=== PATIENT | male | born 1970 | race Caucasian/White ===

== ENCOUNTER 2020-07-26 19:03 | Inpatient (IN) | payer SELFPAY ==
[2020-07-26 19:10] VITALS: BP 139/86; PULSE 86; RESP 18; TEMP 36.9; O2SAT 100; BMI 25.1
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
--- NOTE | 2020-07-26 21:04 | ECG_ITS ---
[facility] Test Date: 2020-07-26 Pat Name: Augustus Smith Department: Room: 270 Gender: Male Certified Hand Therapist: : 1970 Requested By: Tunde Rogel Order Number: [id number] Reading MD: EVAN BALDWIN Measurements Intervals [place] Rate: 78 P: 73 CO: 163 QRS: 69 QRSD: 140 T: 210 QT: 425 QTc: 487 Interpretive Statements SINUS RHYTHM POSSIBLE LEFT ATRIAL ENLARGEMENT [-0.1mV P WAVE IN V1/V2] LEFT BUNDLE BRANCH BLOCK [120+ ms QRS DURATION, 80+ ms Q/S IN V1/V2, 85+ ms R IN I/aVL/V5/V6] No previous ECG available for comparison Electronically Signed On 07-28-2020 20:22:58 CDT by EVAN BALDWIN [id number]
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
[2020-07-26 21:17] VITALS: BP 159/100; PULSE 75; RESP 18; TEMP 36.6
[2020-07-26] MEDS: HYDROmorphone 1 mg/mL INJ 1 mL IVP (21:27)
[2020-07-26] MEDS: ondansetron 2 mg/ML SDV 2 mL 4 MG IVP (21:27)
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
[2020-07-26 22:23] VITALS: RESP 18; O2SAT 98
[2020-07-26] MEDS: morphine 4 mg/mL SDV 1 mL IVP (22:23)
[2020-07-26] MEDS: LORazepam 2 mg/mL INJ 1 mL IVP (22:23)
[2020-07-26 22:30] LABS: Basophils # 0.1 10^3/uL (0.0-0.1); Basophils % 0.9 %; Eosinophils # 0.2 10^3/uL (0.0-0.8); Eosinophils % 2.2 %; Hematocrit 40.1 % (42.0-52.0); Hemoglobin 13.7 g/dL (11.7-16.6); Lymphocytes # 1.4 10^3/uL (0.8-4.8); Mean Corpuscular HGB Conc 34.2 g/dL (30.0-36.0); Mean Corpuscular Hemoglobin 31.9 pg (28.0-34.0); Mean Corpuscular Volume 93.3 fL (80-94); Mean Platelet Volume 11.8 fL (7.4-10.4); Monocytes # 0.8 10^3/uL (0.2-0.9); Monocytes % 7.5 %; Neutrophils # 8.33 10^3/uL (1.8-7.7); Neutrophils % 76.1 %; Nucleated Red Blood Cells % 0 %; Platelet Count 197 10^3/cmm (130-400); Red Cell Distribution Width 13.4 % (12.1-15.1); White Blood Count 10.9 10^3/uL (4.0-10.0)
[2020-07-26 22:36] LABS: Alanine Aminotransferase 205 U/L (0-41); Albumin Level 4.2 g/dL (3.5-5.2); Alkaline Phosphatase 77 IU/L (40-130); Anion Gap 13.8 (5-19); Aspartate Amino Transferase 105 U/L (0-40); Blood Urea Nitrogen 12 mg/dL (6-20); Calcium 8.5 mg/dL (8.5-10.5); Carbon Dioxide 25 mmol/L (22-29); Chloride 102 mmol/L (98-107); Glomerular Filtration Rate 143.8 mL/min (90-130); Glucose 117 mg/dL (65-115); Osmolality Calculated 285 mOsm/kg (285-295); Potassium 3.8 mmol/L (3.5-5.1); Sodium 137 mmol/L (136-145); Total Bilirubin 0.7 mg/dL (0.15-1.2); Total Protein 8.2 g/dL (6.6-8.7)
[2020-07-26 22:37] LABS: Creatinine Clr Calc Pharmacy 165.7678
[2020-07-26 23:55] LABS: Hepatitis A Antibody IgM Non-Reactive (Nonreactive); Hepatitis B Core IgM Non-Reactive (Nonreactive); Hepatitis B Surface Antigen Non-Reactive (Nonreactive); Hepatitis C Virus Antibody Reactive (Nonreactive); INR 1.04 (0.8-1.2)
[2020-07-27] VITALS (26 sets, daily range): BP systolic 133–168; BP diastolic 73–105; PULSE 74–100; RESP 12–22; TEMP 36–37.1; O2SAT 91–100
--- NOTE | 2020-07-27 | SCC_ITS ---
Procedure Done: Ex-Fix left tibial plateau fracture 19.4 seconds of fluoroscopic guidance, for a cumulative dose of 0.89 mGy, was provided to Dr. Knutson by the radiology department. C-arm images of the LEFT knee were saved for the patient's permanent record. [facility]
--- NOTE | 2020-07-27 | XR_ITS ---
WS: [id number] Left knee, C-arm fluoroscopy, 07/27/2020 Clinical Data: OR PICS Comparison: Left leg, 07/26/2020 Findings: There is visualization of the proximal tibial and fibular fractures of the left leg. XR/XR knee LT 1-2V 78163 Impression: Fractures of the proximal left tibia and fibula. Kellgren-Cesar Classification: NA
[2020-07-27] MEDS: LORazepam 2 mg/mL INJ 1 mL 1 MG IVP (00:13)
[2020-07-27] MEDS: morphine 4 mg/mL SDV 1 mL IVP (00:14)
[2020-07-27] MEDS: dextrose 5%-sod chloride 0.45% 1,000 ML 30 ML IV (02:06)
--- NOTE | 2020-07-27 03:18 | PC.NURSE ---
Before arriving to floor, patient received 1mg of Ativan and 4mg of morphine, due to this this RN is unable to complete admission assessment due to patient being sedated
[2020-07-27 04:06] LABS: Alcohol Level < 10 mg/dL (0-10)
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
[2020-07-27] MEDS: sennosides-docusate Tablet 1 TAB PO (10:49)
[2020-07-27] MEDS: sodium chloride 0.9% 1,000 ML 30 ML IV (13:30)
[2020-07-27 13:33] LABS: Amphetamines Screen Urine Positive (Negative); Barbiturates Screen Urine Negative (Negative); Benzodiazepines Screen Urine Positive (Negative); Cocaine Screen Urine Negative (Negative); Opiate Screen Urine Positive (Negative); PCP Screen Urine Negative (Negative); THC Screen Urine Positive (Negative)
--- NOTE | 2020-07-27 13:34 | ANES.PREANE2 ---
Pre-Anesthetic Assessment Pre-Anesthetic Assessment: Height/Weight: Height 1.8 m Weight 81.647 kg Temp Pulse Resp BP Pulse Ox 97.3 F L 80 18 144/98 97 07/27/20 12:57 07/27/20 12:57 07/27/20 12:57 07/27/20 12:57 07/27/20 12:57 Proposed Procedure: Operation Date: 07/27/20 15:00 Proposed Procedures p left leg external fixation, tibial plateau fracture(Left) - Brandon Knutson, DO Was Beta Flavio taken within 24 hours: N/A Was Clonidine taken within 24 hours: N/A Social: Social History: Tobacco and No alcohol Exam: Pre-Anes Outpt Exam: alert, oriented x 3 and regular rate & rhythm Airway: Submandibular: WNL Cervical ROM: WNL MP: 2 Dentition: Chipped Additional comments: poor dentition , missing several Pulmonary: Pulmonary: COPD Neuropsych: Comments: drug abuse Anesthetic Plan: ASA status: 3 Anesthesia: General Risk of > 500 ml blood loss (7ml/kg in children): No Meds/Allergies Current Medications: Current Medications Generic Name Dose Route Start Last Admin Trade Name Freq PRN Reason Stop Dose Admin Dextrose/Sodium Ch loride 1,000 mls @ 30 ml s/hr 07/27/20 00:15 07/27/20 02:06 Dextrose 5%-Sod Chloride 0.45% IV 30 mls/hr .Q24H ANKIT Administration Sodium Chloride 1,000 mls @ 30 ml s/hr 07/27/20 13:00 07/27/20 13:30 Sodium Chloride 0.9% IV 07/28/20 12:59 30 mls/hr .Q24H ANKIT Administration Senna/Docusate Sod ium 1 tab 07/27/20 09:00 07/27/20 10:49 Sennosides-Docus ate Tablet PO 1 tab DAILY ANKIT Administration PFSH Anesthesia PFSH: Medical History (Updated 07/26/20 @ 23:02 by Good Roman MD) No pertinent past medical history Surgical History (Updated 07/26/20 @ 23:02 by Good Roman MD) History of ankle surgery Family History (Updated 07/26/20 @ 23:02 by Good Roman MD) Other No pertinent family history Social History (Updated 07/26/20 @ 23:03 by Good Roman MD) Smoking and tobacco status: current every day smoker cigarettes Alcohol intake: never Substance/Drug Use: current Substance/Drug use type: Methamphetamine Data Anesthesia CBC & Chem 7: 07/26/20 22:15 07/26/20 22:15 Other Labs: Laboratory Results - last 48 hr 07/26/20 07/26/20 07/26/20 03:35 22:15 22:15 WBC 10.9 H RBC 4.30 Hgb 13.7 Hct 40.1 L MCV 93.3 MCH 31.9 MCHC 34.2 RDW 13.4 Plt Count 197 MPV 11.8 H Neut % (Auto) 76.1 Lymph % (Auto) 13.0 [place] % (Auto) 7.5 Eos % (Auto) 2.2 Baso % (Auto) 0.9 Neut # (Auto) 8.33 H Lymph # (Auto) 1.4 [place] # (Auto) 0.8 Eos # (Auto) 0.2 Baso # (Auto) 0.1 Nucleated RBC % (auto) 0 Nucleated RBCs # 0.0 PT 14.00 INR 1.04 Sodium Potassium Chloride Carbon Dioxide Anion Gap BUN Creatinine GFR Calculation Glucose Calculated Osmolality Calcium Total Bilirubin AST ALT Alkaline Phosphatase Total Protein Albumin Globulin Urine Opiates Screen Ur Barbiturates Screen Ur Phencyclidine Scrn Ur Amphetamines Screen U Benzodiazepines Scrn Urine Cocaine Screen U Marijuana (THC) Screen Ethyl Alcohol < 10 Hepatitis A IgM Ab Hep Bs Antigen Hep B Core IgM Ab Hepatitis C Antibody 07/26/20 07/26/20 07/27/20 22:15 22:15 12:40 WBC RBC Hgb Hct MCV MCH MCHC RDW Plt Count MPV Neut % (Auto) Lymph % (Auto) [place] % (Auto) Eos % (Auto) Baso % (Auto) Neut # (Auto) Lymph # (Auto) [place] # (Auto) Eos # (Auto) Baso # (Auto) Nucleated RBC % (auto) Nucleated RBCs # PT INR Sodium 137 Potassium 3.8 Chloride 102 Carbon Dioxide 25 Anion Gap 13.8 BUN 12 Creatinine 0.6 L GFR Calculation 143.8 H Glucose 117 H Calculated Osmolality 285 Calcium 8.5 Total Bilirubin 0.7 AST 105 H ALT 205 H Alkaline Phosphatase 77 Total Protein 8.2 Albumin 4.2 Globulin 4.0 Urine Opiates Screen Positive H Ur Barbiturates Screen Negative Ur Phencyclidine Scrn Negative Ur Amphetamines Screen Positive H U Benzodiazepines Scrn Positive H Urine Cocaine Screen Negative U Marijuana (THC) Screen Positive H Ethyl Alcohol Hepatitis A IgM Ab Non-reactive Hep Bs Antigen Non-reactive Hep B Core IgM Ab Non-reactive Hepatitis C Antibody Reactive H Cardiac Studies: No Data to Display
--- NOTE | 2020-07-27 14:21 | W.PM.OPSUD ---
Surgery/Procedure H&P Update DATE OF PROCEDURE: July 27, 2020 DATE H&P PERFORMED: 07/27/20 PLANNED PROCEDURE: Operation Date: 07/27/20 15:00 Proposed Procedures p left leg external fixation, tibial plateau fracture(Left) - Brandon Knutson DO
--- NOTE | 2020-07-27 15:06 | ECG_ITS ---
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: : 1970 Requested By: Kosta Venegas Order Number: [id number] Macario MD: EVAN BALDWIN Measurements Intervals [place] Rate: 89 P: 75 LA: 174 QRS: 61 QRSD: 149 T: -38 QT: 438 QTc: 533 Interpretive Statements SINUS RHYTHM POSSIBLE LEFT ATRIAL ENLARGEMENT [-0.1mV P WAVE IN V1/V2] LEFT BUNDLE BRANCH BLOCK [120+ ms QRS DURATION, 80+ ms Q/S IN V1/V2, 85+ ms R IN I/aVL/V5/V6] Compared to ECG 07/26/2020 21:55:41 No significant changes Electronically Signed On 07-28-2020 20:21:35 CDT by EVAN BALDWIN [email or web address] Kenney [email or web address]/store/OM/[id number]
--- NOTE | 2020-07-27 15:11 | PM.OP ---
Operative Report Date of procedure: July 27, 2020 Pre-op Diagnosis: left tibial plateau fracture Post-op diagnosis: same Procedure Done: Ex-Fix left tibial plateau fracture Surgeon: Brandon Knutson Anesthesia: General Estimated blood loss (mL): 5 Condition: stable Disposition: PACU Procedure: ex fix left tibial platea fracture Patient was brought to the operative suite placed in the supine position after undergoing anesthesia. Patient was prepped and draped normal sterile fashion. 2 stab incisions were made in the tibia to 7 screws were made in the femur. And Schanz pins were placed in the tibia and femur to were placed in the tibia anterior placed in the femur and this was done under C-arm guidance. Part of bars clamps were attached and the rods were attached to the Schanz pins traction was applied and the bar to bar clamps were locked into position. Once this was completed AP lateral fluoroscopy ensured the fracture and the exfix were in prepositions. Sterile dressings were applied patient was transferred to the PACU in stable condition.
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
[2020-07-27] MEDS: HYDROmorphone 1 mg/mL INJ 1 mL 0.5 MG IVP ×2 (15:32→22:59)
--- NOTE | 2020-07-27 15:39 | SUR.PHASEI ---
1507- DR MCKENZIE ORDERS 12 LEAD LOUISA STAT 1510- LOUISA AT THE BEDSIDE, DR MCKENZIE NOTIFIED 1513- DR MCKENZIE AT THE BEDSIDE, NO NEW ORDERS AT THIS TIME
--- NOTE | 2020-07-27 15:55 | PM.PN ---
Subjective Subjective: Interval history: Patient was incoherent has bad fracture blisters and swelling of his leg need to stabilize the soft tissues in the fracture in order to prevent compartment syndrome and dysvascular leg. Took the patient emergently to the OR. 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
--- NOTE | 2020-07-27 16:23 | ANE.PACU2 ---
Inpatient post-anesthesia follow up: Airway intact: Yes Vital signs: Temperature 97.7 F Pulse Rate [Monito r] 86 Pulse Rate 89 Respiratory Rate 19 Blood Pressure [Ri ght Arm] 139/86 Blood Pressure 154/97 Pulse Oximetry 100 Oxygen Delivery Me thod Room Air Oxygen Flow Rate 6 Fraction of Inspir ed Oxygen Hydration adequate: Yes Nausea and vomiting: No Pain level: 2 Mental status: Baseline Additional Comments: Intraop patient had very specific EKG changes with dips in blood pressure, postop EKG no change from preop, discussed with Dr. Stark.
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
[2020-07-27 18:46] LABS: Glucose Point of Care 105 mg/dL (70-110)
--- NOTE | 2020-07-27 19:08 | P.PN_ITS ---
Subjective Subjective: Interval history: overnight labs and H&P reviewed. s/p placeent of extrenal fixator today afternoon. Seen post operatively. Intraop noted to have variable changes on EKG with fluctuating BP, overnight EKD with LBBB and T wave inverson of unclear duration. EKG and troponin series currently ordered Vitals/I&O/Wt Last Vital Signs Temp 97.6 F 07/27/20 18:10 Pulse 76 07/27/20 18:10 Resp 17 07/27/20 18:10 BP 158/96 07/27/20 18:10 Pulse Ox 99 07/27/20 18:10 07/27/20 07/27/20 07/27/20 06:59 14:59 22:59 Intake Total 0 / 0 50 / 50 0 / 50 Output Total 5 / 5 Balance 0 / 0 50 / 50 -5 / 45 Weight last 48 hrs Weight 81.647 kg Physical Exam Narrative: EXAM NARRATIVE: young male laying supine in his bed Multiple skin tattoos EOMI, PERRLA, bilateral conjunctival hyperemia Soft abdomen nontender LLE in external fixator No acute respiratory distress no audible stridor or wheezing Data : 07/27/20 23:27 07/26/20 22:15 A&P Assessment and plan (1) Fracture tibia/fibula: Status: Acute Additional A&P Information Acute left proximal tibia and fibula fracture s/p placement of extrenal fixator Intraop events as noted above EKG and troponin series pain currently controlled Urine drug screen + for opiates, amphetamines , benzos, monitor for signs of withdrawal Attestations Medical Necessity Statement*: POD 0, tehrapy assessments montior for withdrawal, EKG Coding Level of Care 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
[2020-07-27 20:04] LABS: Troponin(5th) Baseline 9 ng/L (0-15)
--- NOTE | 2020-07-27 21:03 | PC.NURSE ---
Addendum entered by Oralia Ruiz LPN 07/27/20 21:09: this nurse had noticed that pt urinated in his drinking glass on his bedside table Original Note: upon entering the room, pt was yelling, nurse stating he was in pain. upon doing my assessment, pt was falling alseep in the middle of answering questions. pt did not finish answering all assessment questions before falling asleep. pt resting with eyes closed and normal respirations.
[2020-07-27 22:17] LABS: Troponin 5 2HR 11.16 ng/L (0-15); Troponin 5 2HR Delta 2.16 ABS# (0-10)
[2020-07-27 23:51] LABS: Hematocrit 35.9 % (42.0-52.0); Hemoglobin 12.2 g/dL (11.7-16.6)
[2020-07-28] VITALS (11 sets, daily range): BP systolic 124–159; BP diastolic 76–88; PULSE 71–93; RESP 14–18; TEMP 36.6–37.1; O2SAT 98–100
[2020-07-28] MEDS: dextrose 5%-sod chloride 0.45% 1,000 ML 30 ML IV (02:04)
[2020-07-28 03:01] LABS: Troponin 5 6HR 10.99 ng/L (0-15); Troponin 5 6HR Delta 1.99 ng/L (0-12)
[2020-07-28 03:03] LABS: Alanine Aminotransferase 175 U/L (0-41); Albumin Level 3.6 g/dL (3.5-5.2); Alkaline Phosphatase 71 IU/L (40-130); Anion Gap 13.8 (5-19); Aspartate Amino Transferase 97 U/L (0-40); Blood Urea Nitrogen 10 mg/dL (6-20); Carbon Dioxide 25 mmol/L (22-29); Chloride 97 mmol/L (98-107); Globulin 3.5 g/dL (1.3-4.6); Glomerular Filtration Rate 120.4 mL/min (90-130); Glucose 109 mg/dL (65-115); Osmolality Calculated 274 mOsm/kg (285-295); Potassium 3.8 mmol/L (3.5-5.1); Sodium 132 mmol/L (136-145); Total Bilirubin 0.7 mg/dL (0.15-1.2); Total Protein 7.1 g/dL (6.6-8.7)
[2020-07-28] MEDS: HYDROmorphone 1 mg/mL INJ 1 mL 0.5 MG IVP ×4 (03:22→20:45)
--- NOTE | 2020-07-28 08:13 | PM.PN ---
Subjective Subjective: Interval history: Patient pain controlled this morning. That has been stabilized with exfix. Vitals/I&O/Wt Last Vital Signs Temp 98.2 F 07/28/20 07:56 Pulse 76 07/28/20 07:56 Resp 18 07/28/20 07:56 BP 152/88 07/28/20 07:56 Pulse Ox 99 07/28/20 07:56 07/27/20 07/28/20 07/28/20 22:59 06:59 14:59 Intake Total 800 / 850 1309.5 / 2159.5 Output Total 245 / 245 600 / 845 500 / 500 Balance 555 / 605 709.5 / 1314.5 -500 / -500 Weight last 48 hrs Weight 180 lb Physical Exam Narrative: EXAM NARRATIVE: Moving toes complaining of some numbness in his toes. Leg swollen but calf feels relatively soft compared to yesterday. Data : 07/27/20 23:27 07/28/20 02:24 A&P Assessment and plan (1) Fracture tibia/fibula: Patient has comminuted tibial plateau fracture. Patient will likely be in the exfix for at least 2 weeks allow for swelling to go down and then will have definitive treatment with open reduction internal fixation after this. 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
[2020-07-28] MEDS: sennosides-docusate Tablet 1 TAB PO (09:12)
[2020-07-29] VITALS (15 sets, daily range): BP systolic 135–165; BP diastolic 79–93; PULSE 73–95; RESP 14–22; TEMP 36.5–37.1; O2SAT 92–100
[2020-07-29] MEDS: HYDROmorphone 1 mg/mL INJ 1 mL 0.5 MG IVP ×5 (00:55→23:42)
[2020-07-29 05:29] LABS: Basophils # 0.1 10^3/uL (0.0-0.1); Basophils % 1.3 %; Eosinophils # 0.5 10^3/uL (0.0-0.8); Eosinophils % 5.9 %; Hematocrit 40.9 % (42.0-52.0); Hemoglobin 13.6 g/dL (11.7-16.6); Lymphocytes # 2.3 10^3/uL (0.8-4.8); Lymphocytes % 25.3 %; Mean Corpuscular HGB Conc 33.3 g/dL (30.0-36.0); Mean Corpuscular Hemoglobin 31.6 pg (28.0-34.0); Mean Corpuscular Volume 95.1 fL (80-94); Mean Platelet Volume 11.9 fL (7.4-10.4); Monocytes # 1.4 10^3/uL (0.2-0.9); Monocytes % 15.5 %; Neutrophils % 51.7 %; Nucleated Red Blood Cells % 0 %; Platelet Count 197 10^3/cmm (130-400); Red Cell Distribution Width 13.3 % (12.1-15.1); White Blood Count 9.1 10^3/uL (4.0-10.0)
[2020-07-29] MEDS: sennosides-docusate Tablet 1 TAB PO (08:54)
[2020-07-29] MEDS: dextrose 5%-sod chloride 0.45% 1,000 ML 30 ML IV (10:51)
[2020-07-29 11:37] LABS: Magnesium 1.8 mg/dL (1.7-2.3); Phosphorus 3.7 mg/dL (2.5-4.5)
--- NOTE | 2020-07-29 11:54 | PM.PN ---
Subjective Subjective: Interval history: pain improved numbness in toes improved Vitals/I&O/Wt Last Vital Signs Temp 98.1 F 07/29/20 11:19 Pulse 84 07/29/20 11:19 Resp 18 07/29/20 11:19 BP 135/85 07/29/20 11:19 Pulse Ox 100 07/29/20 11:19 07/28/20 07/29/20 07/29/20 22:59 06:59 14:59 Intake Total 290 / 1060 1000 / 2060 983.5 / 983.5 Output Total 1550 / 2600 400 / 3000 400 / 400 Balance -1260 / -1540 600 / -940 583.5 / 583.5 Physical Exam Narrative: EXAM NARRATIVE: sensation intact leg being iced Data : 07/29/20 04:58 07/28/20 02:24 A&P Assessment and plan (1) Fracture tibia/fibula: await swelling to decreses likely 2 weeks. 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
[2020-07-29] MEDS: enoxaparin 40 mg/0.4 mL Syringe SUBCUT (13:04)
--- NOTE | 2020-07-29 14:01 | PC.NURSE ---
PT HAS DONE WELL FOR ME TODAY. PT HAS BEEN UP TO THE BEDSIDE COMMODE WITH ONE ASSIST. PT HAS ALSO BEEN UP TO THE CHAIR FOR A LONG PERIOD OF TIME TODAY. DOCTOR СВЕТЛАНА ROUNDED WITH PT AND ORDERED TO REMOVE DRESSING AND CLEAN SITES WHERE PINS ARE. DRESSING WAS REMOVED. PT TOLERATED THIS WELL. THERE ARE SEVERAL SMALL BLISTERS TO PTS LEFT LEG WERE SURGERY WAS PERFORMED. DOCTOR IS AWARE AND OK WITH THESE FINDINGS. SOME BLISTERS HAVE POPPED. THERE IS ONE LARGE ONE JUST INSIDE AND BELOW PTS LEFT KNEE THAT IS ABOUT THE SIZE OF A HALF DOLLAR, IT IS FULL. PT DOS NOT HAVE ANY COMPLAINTS OF PAIN. PT IS ABLE TO WIGGLE TOES. PULSES ARE EASILY PALPATED. TOES ARE COOL TO TOUCH BUT PT SAY THAT IS HIS NORMAL, HE HAS ALWAYS HAD COLD TOES DUE TO THEM BEING FROSTBIT. WILL CONTINUE TO MONITOR PT THROUGHOUT SHIFT.
--- NOTE | 2020-07-29 18:06 | P.PN_ITS ---
Subjective Subjective: Interval history: no new complaints, some pain at surgical site. Overnight patient had run of 45 beats of V tach which was asymptomatic. Denied any chest pain, dyspnea or palpitations. Medications: Reviewed: Yes Vitals/I&O/Wt Last Vital Signs Temp 98.0 F 07/29/20 15:19 Pulse 58 L 07/29/20 15:19 Resp 18 07/29/20 15:19 BP 138/87 07/29/20 15:19 Pulse Ox 92 07/29/20 15:19 07/29/20 07/29/20 07/29/20 06:59 14:59 22:59 Intake Total 1000 / 2060 1393.5 / 1393.5 Output Total 400 / 3000 800 / 800 Balance 600 / -940 593.5 / 593.5 Physical Exam Narrative: EXAM NARRATIVE: GEN: Awake, alert and oriented, no acute distress CVS: S1S2 N RS: CTA B/L Abd: Soft, nt/nd , bs+ MONITOR AND STORAGE BIN TENDER: no focal neuro deficits Data : 07/29/20 04:58 07/28/20 02:24 A&P Assessment and plan (1) Fracture tibia/fibula: Acute left proximal tibia and fibula fracture s/p placement of extrenal fixator pain currently controlled Urine drug screen + for opiates, amphetamines , benzos, monitor for signs of withdrawal Status: Acute (2) Ventricular tachycardia (paroxysmal): Intraop noted to have dynamic EKG changes, 12 lead post procedure was unchanged. Troponin series was negative. Patient denied any chest pain. Overnight noted to have asymptomatic run of v tach - 45 beats Currently in sinus rhythm Start metoprolol 12.5mg po daily Lexiscan stress test in am Echocardiogram Add on troponins to am labs K and mag within range May be related to polysubstance abuse Hba1c, lipid panel for risk startification start ASA 81mg daily Status: Acute (3) Polysubstance abuse: monitor for signs of withdrawal Status: Acute Additional A&P Information Transfer to CSU for cardiac monitoring given overnight run of V tach Attestations Medical Necessity Statement*: extrenal fixator in place. 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
[2020-07-29 19:48] LABS: Troponin T (5th) Once 10 ng/L (0-15)
[2020-07-29] MEDS: metoprolol succinate ER (24 HR) 25 mg Tablet 12.5 MG PO (19:55)
[2020-07-30] VITALS (13 sets, daily range): BP systolic 136–155; BP diastolic 60–94; PULSE 74–99; RESP 5–20; TEMP 36.5–36.9; O2SAT 98–100
[2020-07-30] MEDS: HYDROmorphone 1 mg/mL INJ 1 mL 0.5 MG IVP ×5 (04:23→22:18)
[2020-07-30 05:04] LABS: Basophils # 0.2 10^3/uL (0.0-0.1); Basophils % 1.7 %; Eosinophils # 0.6 10^3/uL (0.0-0.8); Eosinophils % 7.2 %; Hemoglobin 14.6 g/dL (11.7-16.6); Lymphocytes # 2.1 10^3/uL (0.8-4.8); Lymphocytes % 24.2 %; Mean Corpuscular HGB Conc 33.2 g/dL (30.0-36.0); Mean Corpuscular Hemoglobin 31.6 pg (28.0-34.0); Mean Corpuscular Volume 95.2 fL (80-94); Mean Platelet Volume 11.7 fL (7.4-10.4); Monocytes # 1.2 10^3/uL (0.2-0.9); Monocytes % 13.7 %; Neutrophils % 52.9 %; Nucleated Red Blood Cells % 0 %; Platelet Count 240 10^3/cmm (130-400); Red Blood Count 4.62 10^6/uL (4.1-5.3); Red Cell Distribution Width 13.2 % (12.1-15.1); White Blood Count 8.7 10^3/uL (4.0-10.0)
[2020-07-30 05:22] LABS: Estmated Average Glucose 103; Hemoglobin A1C 5.2 % (4.0-6.0)
[2020-07-30 05:35] LABS: HIV 1 & 2 Antibody Non-Reactive (Non-Reactiv); HIV 1 & 2 Antigen Non-Reactive (Non-Reactiv)
[2020-07-30 05:38] LABS: Alanine Aminotransferase 177 U/L (0-41); Albumin Level 3.8 g/dL (3.5-5.2); Alkaline Phosphatase 75 IU/L (40-130); Anion Gap 12.7 (5-19); Aspartate Amino Transferase 125 U/L (0-40); Blood Urea Nitrogen 15 mg/dL (6-20); Calcium 8.5 mg/dL (8.5-10.5); Carbon Dioxide 31 mmol/L (22-29); Chloride 95 mmol/L (98-107); Chol HDL Ratio 3.02 mg/dL (1.0-5.00); Cholesterol 124 mg/dL (0-200); Globulin 4.7 g/dL (1.3-4.6); Glomerular Filtration Rate 120.4 mL/min (90-130); Glucose 113 mg/dL (65-115); HDL Cholesterol 41 mg/dL (60-100); LDL Cholesterol Calculated 73 mg/dL (50-129); LDL HDL Ratio 1.78 RATIO (0.00-3.22); Osmolality Calculated 280 mOsm/kg (285-295); Potassium 4.7 mmol/L (3.5-5.1); Sodium 134 mmol/L (136-145); Total Bilirubin 0.4 mg/dL (0.15-1.2); Total Protein 8.5 g/dL (6.6-8.7); Triglycerides 49 mg/dL (0-150)
--- NOTE | 2020-07-30 08:05 | PC.NURSE ---
to nuc stress test via bed
[2020-07-30] MEDS: regadenoson 0.4 Mg/5 ml Syringe IVP (08:07)
--- NOTE | 2020-07-30 08:18 | PC.NURSE ---
complains of pain when awake but will fall asleep. called guicho for pain meds prior to second picture due to being moved from bed to table for picture. states she will try to get down here soon for dose of meds.
--- NOTE | 2020-07-30 08:22 | ECG_ITS ---
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 Interpretive Statements NAME OF STUDY: LEXISCAN SESTAMIBI STRESS TEST INDICATION: [Chest Pain, ] Procedure: At the baseline, the blood pressure was 145/83 mmHg with a heart rate of 70 bpm. The electrocardiogram showed normal sinus rhythm, left bundle branch block. The Lexiscan was infused over a period of 20 seconds. A total of 0.4 mg of Lexiscan was infused. The stress phase was continued for a total of 5 minutes. Heart rate was at the end of stress phase was 93 bpm and a blood pressure of 100/65 mmHg. The EKG at the peak infusion revealed since normal sinus rhythm with no significant ST-T wave changes. Sestamibi was injected 20 seconds after the Lexiscan infusion. Blood pressure at the end of recovery phase was 136/77 mmHg with a heart rate of 104 bpm. Conclusion: 1. Normal EKG response to Lexiscan infusion 2. No Lexiscan induced chest pain or cardiac arrhythmia. 3. Normal blood pressure and heart rate response. 4. Sestamibi/sestamibi perfusion scan pending; see separate report. Electronically Signed On 09-16-2020 17:56:42 CDT by Iam Guevara M.D. [id number]
--- NOTE | 2020-07-30 08:55 | PM.PN ---
Subjective Subjective: Interval history: resting in bed Vitals/I&O/Wt Last Vital Signs Temp 97.7 F 07/30/20 04:00 Pulse 99 07/30/20 08:17 Resp 14 07/30/20 08:43 BP 136/77 07/30/20 08:17 Pulse Ox 98 07/30/20 04:23 07/29/20 07/30/20 07/30/20 22:59 06:59 14:59 Intake Total 1120 / 2513.5 400 / 2913.5 Output Total 1350 / 2150 1250 / 3400 325 / 325 Balance -230 / 363.5 -850 / -486.5 -325 / -325 Physical Exam Narrative: EXAM NARRATIVE: fracture blisters present Data : 07/30/20 04:41 07/30/20 04:41 A&P Assessment and plan (1) Fracture tibia/fibula: Status: Acute Additional A&P Information await swelling to go down for definitive tx likely 2 weeks Ice and elevate extremity pin care daily Attestations Medical Necessity Statement*: homeless Coding Level of Care Code 

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
[2020-07-30] MEDS: sennosides-docusate Tablet 1 TAB PO (10:25)
[2020-07-30] MEDS: metoprolol succinate ER (24 HR) 25 mg Tablet 12.5 MG PO (10:26)
[2020-07-30] MEDS: aspirin 81 mg EC Tablet PO (10:26)
[2020-07-30] MEDS: enoxaparin 40 mg/0.4 mL Syringe SUBCUT (13:38)
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
--- NOTE | 2020-07-30 18:08 | USCV_ITS ---
Augustus Smith Age: 50 Gender: M : 1970 Exam Date: 07/30/2020 05:15 Ordering Phys: Vikki Stark MD Technologist: Nallely Oviedo Exam Location: [facility] [place] Indication: VTACH BP: 155 / 90 HR: 71 Rhythm: Sinus Technical Quality: Adequate MEASUREMENTS (Male / Female) Normal Values 2D ECHO LV Diastolic Diameter PLAX 4.0 cm 4.2 - 5.9 / 3.9 - 5.3 cm LV Systolic Diameter PLAX 3.5 cm LV Chamber Size 4.4 cm IVS Diastolic Thickness 1.7 cm 0.6 - 1.0 / 0.6 - 0.9 cm IVS Systolic Thickness 1.4 cm LVPW Diastolic Thickness 1.7 cm 0.6 - 1.0 / 0.6 - 0.9 cm LVPW Systolic Thickness 1.5 cm RV Chamber Size 1.8 cm LVOT Diameter 2.0 cm LV Ejection Fraction 2D Teich 28.7 % LV Ejection Fraction MOD 2C 57.2 % LV Ejection Fraction 2C AL 56.9 % LA Diameter 2.9 cm LA Width 2.8 cm LA Height 4.0 cm RA Width 2.7 cm RA Height 4.2 cm M-MODE LV Diastolic Diameter MM 4.4 cm 4.2 - 5.9 / 3.9 - 5.3 cm LV Systolic Diameter MM 3.0 cm LV Ejection Fraction MM Teich 60.5 % IVS Diastolic Thickness MM 1.2 cm 0.6 - 1.0 / 0.6 - 0.9 cm IVS Systolic Thickness MM 1.7 cm LVPW Diastolic Thickness MM 1.2 cm 0.6 - 1.0 / 0.6 - 0.9 cm LVPW Systolic Thickness MM 2.0 cm Aortic Annulus Diameter 2.0 cm LA Ao Ratio MM 0.7 MV E Point Septal Separation 1.3 cm DOPPLER AV Peak Velocity 141.0 cm/s LVOT Peak Velocity 87.0 cm/s AV Area Cont Eq vti 2.1 cm squared AV Area Cont Eq pk 2.0 cm squared MV Area PHT 3.5 cm squared Mitral E to A Ratio 0.9 MV E' Velocity 33.5 cm/s Mitral E to MV E' Ratio 6.1 Mitral E to LV E' Lateral Ratio 4.2 Mitral E to LV E' Septal Ratio 11.0 TR Peak Velocity 233.9 cm/s TR Peak Gradient 21.9 mmHg TR Mean Velocity 152.4 cm/s TR Mean Gradient 11.0 mmHg TR Velocity Time Integral 48.3 cm TV Peak E Velocity 46.0 cm/s Right Atrial Pressure 3.0 mmHg Pulmonary Artery Systolic Pressu 24.9 mmHg PV Peak Velocity 130.0 cm/s RV Acceleration Time 0.1 s RV Ejection Time 0.3 s RV AcT/ET 0.3 FINDINGS Left Ventricle Normal left ventricular size. LV systolic function is moderately reduced with EF of 35-40%.There is mild hypokinesis of the anterior wall and moderate to severe hypokinesis of the anteroseptal and inferoseptal maya. Grade 1 diatsolic dysfunction Right Ventricle The right ventricle is normal in size and function. Right Atrium The right atrium is normal in size. Left Atrium The left atrium is normal in size. Mitral Valve Structurally normal mitral valve without significant stenosis or prolapse. There is no mitral regurgitation. Aortic Valve Not well visualized. No significant sclerosis or stenosis. There is no aortic regurgitation. Tricuspid Valve Structurally normal tricuspid valve without significant stenosis or regurgitation. Insufficient TR jet to calculate RVSP Pulmonic Valve Not well visualized Pericardium Normal pericardium without effusion. Aorta Normal ascending aorta dimension. CONCLUSIONS LV systolic function is moderately reduced with EF of 35-40% and above mentioned regional wall motion abnormalties Grade 1 diastolic dysfunction No significant valvular heart disease is noted No comparison studies are available Iam Guevara MD (Electronically Signed) Final Date: 30 July 2020 13:05 S
[2020-07-31] VITALS (12 sets, daily range): BP systolic 120–137; BP diastolic 84–93; PULSE 74–103; RESP 9–21; TEMP 36.4–37.2; O2SAT 97–100
[2020-07-31] MEDS: HYDROmorphone 1 mg/mL INJ 1 mL 0.5 MG IVP ×5 (04:00→21:54)
[2020-07-31] MEDS: sennosides-docusate Tablet 1 TAB PO (08:40)
[2020-07-31] MEDS: metoprolol succinate ER (24 HR) 25 mg Tablet 12.5 MG PO (08:40)
[2020-07-31] MEDS: aspirin 81 mg EC Tablet PO (08:40)
--- NOTE | 2020-07-31 10:57 | PM.PN ---
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 EXT: LLE in extrenal fixator extending to thigh, surrounding skin with few blebs Data : 07/30/20 04:41 07/30/20 04:41 A&P Assessment and plan (1) Fracture tibia/fibula: Acute left proximal tibia and fibula fracture s/p placement of external fixator 07/27/20 pain currently controlled planned for second surgery with removal of fixator and internal fixation in ~2 weeks once edema improves Urine drug screen + for opiates, amphetamines , benzos, monitor for signs of withdrawal Status: Acute (2) Ventricular tachycardia (paroxysmal): Intraop on 07/27 noted to have dynamic EKG changes, 12 lead post procedure was unchanged. Troponin series was negative. Overnight on 07/28 noted to have asymptomatic run of v tach - 45 beats Currently in sinus rhythm Started metoprolol 12.5mg po daily Lexiscan stress test with reversible perfusion defects in the LAD territory Echocardiogram with LVEF 35-40%, apical hypokinesia planned for cardiac cath tomorrow started ASA 81mg daily, lipitor 40mg daily A1c not consistent with DM Given high probability of CAD and dynamic changes, there is high risk of cardiac decompensation during surgery, going for cardiac cath prior to planned OR in 2 weeks Discussed with orthopedics-will be okay to proceed with second surgery on ASA+ Plavix if risk of cardiac arrest can be reduced with this intervention. 

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
[2020-07-31] MEDS: enoxaparin 40 mg/0.4 mL Syringe SUBCUT (13:08)
--- NOTE | 2020-07-31 13:44 | PC.NURSE ---
Surgical site care Informed Dr. Knutson regarding pt's more blisters, itching, and serosanginous small to mod amt of drainage to areas of the pins site. is aware of the blisters. Crusted drainage from popped blisters and dried blood around the pins and leg areas are cleansed with saline/sterile water per doctor order on pin care daily. cleansing feels good according to pt. Informed pt that itching is related to the dried crusts from his popped blisters. Pt verbalizes understanding.
[2020-07-31] MEDS: atorvastatin 40 mg Tablet PO (20:21)
[2020-08-01] VITALS (92 sets, daily range): BP systolic 100–157; BP diastolic 69–92; PULSE 66–103; RESP 0–26; TEMP 36.4–37; O2SAT 84–100
[2020-08-01] MEDS: HYDROmorphone 1 mg/mL INJ 1 mL 0.5 MG IVP ×6 (02:27→23:03)
--- NOTE | 2020-08-01 06:45 | PC.NURSE ---
NURSING NOTE: PT PUT ON LIGHT FOR PAIN MEDICATION AND WANTED URINAL EMPTIED. THIS NURSE GOT DILAUDID OUT OF THE PIXIS AND WENT TO PATIENT'S ROOM. UPON ENTERING THE ROOM THE PATIENT STATED, I HAVE TO GO TO THE FUCKING BATHROOM NOW. THIS NURSE POINTED TO HIS URINAL AND SAID THERE IS STILL PLENTY OF ROOM IN THE URINAL TO GO IF YOU NEED TO.(THERE WAS 250CC URINE IN THE URINAL) PT STATED, NO THERE ISN'T, IT NEEDS TO BE FUCKING EMPTIED. THIS NURSE STATED, THE LANGUAGE IS NOT NECESSARY AND I WILL NOT BE TALKED TO THAT WAY. THE PATIENT REPLIED, I WON'T BE TREATED LIKE THIS EITHER, IM A PERSON TOO. THIS NURSE PROCEEDED TO GIVE PATIENT PAIN MEDICATION, EMPTIED URINAL, ASKED PATIENT IF HE NEEDED ANYTHING ELSE. PT STATED, WHO DO I ASK ABOUT TRANSFERRING? THIS NURSE STATED, YOUR DOCTOR. PATIENT TURNED HIS HEAD AWAY AND THIS NURSE LEFT THE ROOM.
--- NOTE | 2020-08-01 07:23 | P.PN_ITS ---
Subjective Subjective: Interval history: resting in bed Vitals/I&O/Wt Last Vital Signs Temp 97.9 F 08/01/20 07:18 Pulse 77 08/01/20 07:18 Resp 10 L 08/01/20 07:18 BP 152/89 08/01/20 07:18 Pulse Ox 98 08/01/20 07:18 07/31/20 08/01/20 08/01/20 22:59 06:59 14:59 Intake Total 840 / 2138 Output Total 1305 / 1755 Balance -465 / 383 Physical Exam Narrative: EXAM NARRATIVE: swelling significantly improving Data : 07/30/20 04:41 07/30/20 04:41 A&P Assessment and plan (1) Fracture tibia/fibula: Plan for surgery 08/10/20 Status: Acute Attestations Medical Necessity Statement*: he homeless Coding Level of Care Code 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
--- NOTE | 2020-08-01 08:15 | XACV_ITS ---
Exam Room: [facility] Ht: 180 cm Wt: 82 kg BSA: 2.03 m2 Gender: Male : 1970 Exam Priority: Routine Procedure(s): Procedure Description: Diagnostic procedure Procedure Description: Left Heart Catheterization Procedure Description: Left ventriculography Diagnostic Cath Status: Elective Diagnostic Findings * Out patient cardiology follow up. * No disease noted in the Left Main, Left Anterior Descending, Right, or Circumflex coronary arteries. * Coronary angiography shows right dominance. Conclusions 1. Non-ischemic cardiomyopathy. 2. No disease noted in the Left Main, Left Anterior Descending, Right, or Circumflex coronary arteries. 3. Mild left ventricular systolic dysfunction. Ejection fraction of 40%. Recommendations * Aggressive risk factor control. * Guideline directed heart failure therapy. * Outpatient cardiology follow up. Diagnostic RX Recommendation: medical therapy and/or counseling Anticoagulation: Heparin Ventriculography Ejection Fraction: 40.0 % Pressures Phase:Rest AO : 156 / 14 ( 54 ) @ 8:17:00 AM LV : 162 / -14 / 10 @ 8:16:00 AM 160 / -14 / 10 @ 8:16:00 AM 313 / 31 / 257 @ 8:17:00 AM 219 / 15 / 115 @ 8:17:00 AM Clinical Evaluation EBL: 5mL-10mL Procedural Details Procedure Consent Obtained. Admit Source: In Patient. Pre-Procedure Time Out. Identified patient by full name and date of as verbalized by the patient/guarantor. Does the consent match the physician's order: Yes. Accurate & Complete Informed Consent: Yes. Inpatient/Outpatient History & Physical on Chart: Yes. If H&P is completed, is and addenduem needed: Yes; If yes, is the addendum complete: N/A. Visualize and Verify Site with Patient/Guarantor: N/A. Relevant Radiology Images available: N/A. Pre-op teaching completed and patient verbalized understanding. The risks, benefits, and alternatives of sedation and/or procedure were discussed by physician. The patient agrees to continue. Procedure started. [facility] Clinical Fraility Score: 2: Well. Radiotelephone Operator Indications: SVT and abnormal stress test. Chest Pain Symptom Assessment: Atypical Angina/chest pain. Cardiovascular Instability: No,. Correct patient, site and procedure confirmed by cath team. PERRLA. Strong, equal hand academic services professional bilaterally. Lungs clear x 5 lobes. IV on left infiltrated upon arrival. A 20 gauge IV was started in the right forearm using aseptic technique. Oxygen started at 2liters/min via nasal canula. bilateral groins was prepped with chloroprep then draped in the usual sterile fashion. Physician notified. Baseline sample Acquired. HR: 76 BPM. Physician arrived. Physician scrubbed in. Immediate Pre-Procedure Time Out. Correct Patient: Yes; Correct Procedure: Yes; Correct Site: Yes; Correct Patient Position: Yes; Correct Supplies: Yes; Dried Flammable Prep: Yes; Blood Products Available: N/A;. bilateral groins was prepped with chloroprep then draped in the usual sterile fashion. right radial was prepped with chloroprep then draped in the usual sterile fashion. Lidocaine 1% infiltrated to the right radial. Arterial access obtained. A 5 austrian TIG catheter in over wire. wire out. Multiple views taken of left coronary artery. Catheter redirected to the RCA. Multiple views taken of right coronary artery. Catheter out. A 5 austrian Angled Pig catheter in over wire. EDP Sample taken: LV 162/-15,10; HR: 88 BPM; SpO2: 100%. LV gram performed in LEONARD @ 10 mL/second for a total of 30 mL. EDP Sample taken: LV 313/31,257; HR: 85 BPM; SpO2: 100%. Pullback taken: LV Off; AO Off; Mean: , Peak to Peak: , SEP: ; HR: 86 BPM; SpO2: 100%. Catheter out. wire out. TR band placed. Hemostasis obtained. Post Procedure: Pulses reassessed and unchanged. PERRLA. Strong, equal hand academic services professional bilaterally. No VTE prophylaxis required. Medication's Wasted: Lidocaine 1% = 16 mL. Medication's Wasted: Nitro = 49.8 mg. Medication's Wasted: Heparin = 3000 units. Medication's Wasted: Other = fentynal 50 mg. Total IV fluids: 50 mL. Contrast type used: Omnipaque 300 mgI/mL, 500 mL bottle. Contrast Material : Omnipaque 93 ml. Post-op diagnosis: non obstructive CAD. Complications: none. Estimated blood loss: 5mL-10mL. A TR Band was successful obtaining hemostatsis at the Right Radial artery insertion site. Procedure completed. Patient transferred by bed to 1st floor. Vital chart was stopped. Access Site Site: Right Radial artery Sheath Size: 6 Fr Hemostasis Method: TR Band Hemostasis Success: Successful Procedure Medications Start: 8:49 AM Stop: 8:49 AM Medication: Versed Amount: 1 mg Route: I.V. Start: 8:49 AM Stop: 8:49 AM Medication: Fentanyl Amount: 50 mcg Route: I.V. Start: 8:55 AM Stop: 8:55 AM Medication: Versed Amount: 1 mg Route: I.V. Start: 9:05 AM Stop: 9:05 AM Medication: Nitrogylcerin Amount: 200 mcg Route: I.A. Start: 9:07 AM Stop: 9:07 AM Medication: Heparin Amount: 2500 units Route: I.V. I, the attending physician, have reviewed and verified all procedure medications. Yes, all medications given per verbal order Report Signatures Finalized by Iam Guevara MD on 08/03/2020 05:52 PM
[2020-08-01 08:22] LABS: Basophils # 0.1 10^3/uL (0.0-0.1); Basophils % 1.4 %; Eosinophils # 0.5 10^3/uL (0.0-0.8); Eosinophils % 6.6 %; Hematocrit 40.7 % (42.0-52.0); Lymphocytes # 1.3 10^3/uL (0.8-4.8); Lymphocytes % 16.8 %; Mean Corpuscular HGB Conc 34.4 g/dL (30.0-36.0); Mean Corpuscular Hemoglobin 32.3 pg (28.0-34.0); Mean Corpuscular Volume 93.8 fL (80-94); Mean Platelet Volume 11.6 fL (7.4-10.4); Monocytes # 1.1 10^3/uL (0.2-0.9); Monocytes % 13.7 %; Nucleated Red Blood Cells % 0 %; Platelet Count 210 10^3/cmm (130-400); Red Blood Count 4.34 10^6/uL (4.1-5.3); Red Cell Distribution Width 13.2 % (12.1-15.1); White Blood Count 7.7 10^3/uL (4.0-10.0)
--- NOTE | 2020-08-01 08:34 | W.PM.OPSUD ---
Surgery/Procedure H&P Update DATE OF PROCEDURE: August 01, 2020 DATE H&P PERFORMED: 07/30/20 H&P UPDATE INFORMATION: I have reviewed H&P completed within last 30 days, I have examined patient prior to procedure and No changes to prior documentation PREOP DIAGNOSIS: Abnormal stress test/ Ventricular tachycardia/LV dysfunction PRIMARY INDICATION FOR PROCEDURE: Abnormal stress test/ventricular tachycardia/LV dysfunction PLANNED PROCEDURE: Operation Date: 08/01/20 0830AM Proposed Procedures Left heart catheterization/coronary angiogram with possible percutaneous coronary intervention PATIENT REASSESSED PRIOR TO SEDATION, WITH NO CHANGE NOTED: Yes PHYSICAL EXAM: alert, oriented x 3, clear to auscultation bilaterally and regular rate & rhythm AIRWAY EVAL/ANESTHESIA PLAN: normal airway, see other exam findings, ASA III, Monitored Anesthesia, Local Anesthesia, Risks, benefits & alternatives of sedation and/or procedure discussed and Patient agrees to continue as planned
[2020-08-01 08:35] LABS: Alanine Aminotransferase 190 U/L (0-41); Albumin Level 3.7 g/dL (3.5-5.2); Alkaline Phosphatase 73 IU/L (40-130); Anion Gap 13.3 (5-19); Aspartate Amino Transferase 123 U/L (0-40); Blood Urea Nitrogen 15 mg/dL (6-20); Calcium 8.2 mg/dL (8.5-10.5); Carbon Dioxide 26 mmol/L (22-29); Chloride 96 mmol/L (98-107); Creatinine Clr Calc Pharmacy 165.7678; Globulin 3.7 g/dL (1.3-4.6); Glomerular Filtration Rate 143.8 mL/min (90-130); Glucose 113 mg/dL (65-115); Osmolality Calculated 274 mOsm/kg (285-295); Potassium 4.3 mmol/L (3.5-5.1); Sodium 131 mmol/L (136-145); Total Bilirubin 0.6 mg/dL (0.15-1.2); Total Protein 7.4 g/dL (6.6-8.7)
[2020-08-01] MEDS: metoprolol succinate ER (24 HR) 25 mg Tablet 12.5 MG PO (10:38)
[2020-08-01] MEDS: sennosides-docusate Tablet 1 TAB PO (10:39)
[2020-08-01] MEDS: sodium chloride 0.9% 1,000 ML 50 ML IV (10:42)
--- NOTE | 2020-08-01 11:22 | PC.NURSE ---
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 Pt had TR band on right wrist. No hematoma noted. Pt had no c/o pain or discomfort at the present time. VS stable will cont to monitor. Will cont to monitor.
[2020-08-01] MEDS: enoxaparin 40 mg/0.4 mL Syringe SUBCUT (12:42)
--- NOTE | 2020-08-01 13:28 | PC.NURSE ---
Pts TR band on right wrist intact no hematoma or excessive bleeding noted. Pt has no c/o pain or discomfort at the present time. Will cont to monitor.
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
--- NOTE | 2020-08-01 16:41 | PC.NURSE ---
Pts TR band removed per protocol from right wrist. No hematoma or bleeding noted. Pt tolerated well. Pt had no c/o pain or discomfort at the present time.
--- NOTE | 2020-08-01 17:07 | P.PN_ITS ---
Subjective Subjective: Interval history: s/p cardiac cath today, no obstructing lesions found, no new acute interim events Medications: Reviewed: Yes Vitals/I&O/Wt Last Vital Signs Temp 98.1 F 08/01/20 15:19 Pulse 78 08/01/20 15:19 Resp 13 08/01/20 15:19 BP 117/72 08/01/20 15:19 Pulse Ox 98 08/01/20 15:19 08/01/20 08/01/20 08/01/20 06:59 14:59 22:59 Intake Total 600 / 600 Output Total 1300 / 1300 Balance -700 / -700 Physical Exam Narrative: EXAM NARRATIVE: GEN: Awake, alert and oriented, no acute distress CVS: S1S2 N RS: CTA B/L Abd: Soft, nt/nd , bs+ DIRECTOR OF ANALYTICAL DEVELOPMENT: no focal neuro deficits EXT: LLE in extrenal fixator extending to thigh, surrounding skin with few blebs Data : 08/01/20 08:07 08/01/20 08:07 A&P Assessment and plan (1) Fracture tibia/fibula: Acute left proximal tibia and fibula fracture s/p placement of external fixator 07/27/20 pain currently controlled planned for second surgery with removal of fixator and internal fixation in ~2 weeks once edema improves Urine drug screen + for opiates, amphetamines , benzos, monitor for signs of withdrawal Status: Acute (2) Ventricular tachycardia (paroxysmal): Intraop on 07/27 noted to have dynamic EKG changes, 12 lead post procedure was unchanged. Troponin series was negative. Overnight on 07/28 noted to have asymptomatic run of v tach - 45 beats Currently in sinus rhythm Started metoprolol 12.5mg po daily Lexiscan stress test with reversible perfusion defects in the LAD territory Echocardiogram with LVEF 35-40%, apical hypokinesia cardiac cath today with no obstructing lesions found started ASA 81mg daily, lipitor 40mg daily A1c not consistent with DM Status: Acute (3) Polysubstance abuse: monitor for signs of withdrawal Status: Acute Additional A&P Information DVT ppx: lovenox 40mg s/c daily Dispo: currently homeless, cannot be discharged safely with external fixator in place , ongoing disposition planning Attestations Medical Necessity Statement*: disposition planning , planned ORIF Coding Level of Care Code Acute Flight Engineer Helicopter for [facility] Fwd Diagnoses Fracture tibia/fibula S82.209A; S82.409A Ventricular tachycardia (paroxysmal) I47.2 Polysubstance abuse F19.10
[2020-08-01] MEDS: temazepam 15 mg Capsule PO (21:10)
[2020-08-01] MEDS: atorvastatin 40 mg Tablet PO (21:10)
--- NOTE | 2020-08-01 21:14 | PC.NURSE ---
Asked patient if he would like a bath. Patient stated that I rather have a bath tomorrow. RN notified.
[2020-08-02] VITALS (63 sets, daily range): BP systolic 133–154; BP diastolic 73–119; PULSE 78–103; RESP 12–28; TEMP 36.6–37.3; O2SAT 94–100
[2020-08-02] MEDS: ALPRAZolam 0.25 mg Tablet PO (01:28)
[2020-08-02] MEDS: HYDROmorphone 1 mg/mL INJ 1 mL 0.5 MG IVP ×2 (03:02→07:10)
[2020-08-02] MEDS: metoprolol succinate ER (24 HR) 25 mg Tablet 12.5 MG PO (09:51)
[2020-08-02] MEDS: sennosides-docusate Tablet 1 TAB PO (09:52)
[2020-08-02] MEDS: aspirin 81 mg EC Tablet PO (09:52)
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
[2020-08-02] MEDS: HYDROcodone-acetaminophen 5-325 mg Tablet 2 TAB PO ×3 (12:02→23:28)
[2020-08-02] MEDS: enoxaparin 40 mg/0.4 mL Syringe SUBCUT (12:03)
[2020-08-02] MEDS: FUROsemide 10 mg/mL SDV 2mL 20 MG IVP (12:03)
--- NOTE | 2020-08-02 13:47 | PC.OT ---
OT Treatment attempted. Patient declined treatment at this time due to pain and reporting fatigue. Will attempt later if able.
--- NOTE | 2020-08-02 14:24 | PC.NURSE ---
Pt transferred from room 106 to room 256-1 med surg floor. Pt had no pain or discomfort at the time of transfer. Report was given to MADHU Ugaled.
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
[2020-08-02] MEDS: temazepam 15 mg Capsule PO (23:25)
[2020-08-03] VITALS (9 sets, daily range): BP systolic 127–163; BP diastolic 73–85; PULSE 71–91; RESP 12–18; TEMP 36.5–37.2; O2SAT 97–99
[2020-08-03] MEDS: HYDROcodone-acetaminophen 5-325 mg Tablet 2 TAB PO ×4 (05:31→21:44)
--- NOTE | 2020-08-03 08:31 | PC.OT ---
Occupational therapy attempted in a.m. Patient reporting high level of pain, nursing aware. Patient declined participating in therapy, when asked if he would like to discharge from therapy, as he has declined treatment two days in a row, he stated he wasn't sure at this time.
--- NOTE | 2020-08-03 09:04 | PC.NUTR ---
Nutrition reassessment: Question whether Cardiac restriction remains necessary at this time given cardiac cath showing no signicant CAD per chart review. Recommend consideration of Regular diet.
[2020-08-03] MEDS: metoprolol succinate ER (24 HR) 25 mg Tablet 12.5 MG PO (09:19)
[2020-08-03] MEDS: sennosides-docusate Tablet 1 TAB PO (09:19)
[2020-08-03] MEDS: aspirin 81 mg EC Tablet PO (09:19)
[2020-08-03] MEDS: enoxaparin 40 mg/0.4 mL Syringe SUBCUT (12:01)
--- NOTE | 2020-08-03 12:45 | PC.CHAP ---
Pastoral Care Encounter/Spiritual Assessment Type of Contact [] Declined last puller visit [] Patient/Family/Request visit [] Outpatient visit [xx] Follow-up visit [] Physician referral [] Code/Alert [xx] Routine visit [] Staff referral [] Actively dying [] Patient sleeping [] Family support [] [] Out of room [] Palliative care [] [] Receiving care in room [] Pre-surgical visit [] Trauma [xx] Long length of stay [] ICU visit [] Other: Relational/Emotional Strength [xx] Patient feels connected with others/family/visitors/staff [] Distress [] Loneliness/isolation [] Abandonment Spirituality of Patient [] Person of Anne [] Attends Quaker of their Anne [xx] Believes in Prayer [] Reads Bible or Yarsani materials [xx] There are Spiritual issues to be addressed Transportation Solutions Manager Interventions [xx] Prayer [xx] Active listening [xx] Non-anxious presence [] Spiritual/emotional support [] Crisis/trauma care [] Spiritual counseling [] Bereavement support [] Provided bereavement packet [] Provided Bible/devotional materials [] Provided toy/stuffed animal, coloring book to patient or family member [] Provided Communion [] Anointing/[employer] [] Salvation [xx] Completed spiritual assessment [] Other: Impact on Illness or Injury [] Angry [] Fearful [] Anxious [] Often cries [] Exhaustion [xx] Unable to work [] Unable to attend amish [xx] Unable to walk/stand [] Unable to read [xx] Unable to drive [] Unable to eat/drink [xx] Unable to sleep [xx] Unable to be with family [] Patient intubated [] Other: Summary Patient in much pain from his injuries. He requested prayer. He does not know how long he will be in the hospital or how long healing will take. He is worried. Time spent with patient 6 minutes
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
--- NOTE | 2020-08-03 13:56 | P.PN_ITS ---
Subjective Subjective: Interval history: 50-year-old female with past medical history significant for polysubstance abuse, presented to the hospital after he sustained a tibial plateau fracture for which an external fixator was placed on 07/27/2020. Postoperatively patient had EKG abnormality with prolonged run of V-tach. He was asymptomatic at the time. Lexiscan was performed which showed r eversible perfusion defect in the LAD territory. EKG showed left ventricular ejection fraction of 35 to 40% with apical hypokinesis. Patient was started on aspirin 81 mg daily and Lipitor as subsequently taken for a coronary angiogram which did not show any evidence of obstructive coronary artery disease. Discharge was delayed due to placement with external fixator and unsafe discharge. Subjective 08/02/20 Patient stated he felt find and just wanted to sleep. no fever, chills, nausea or vomiting documented overnight. 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: no focal neuro deficits EXT: LLE in extrenal fixator extending to thigh, surrounding skin with few blebs Data : 08/01/20 08:07 08/01/20 08:07 A&P Assessment and plan (1) Fracture tibia/fibula: Status: Acute (2) Ventricular tachycardia (paroxysmal): Status: Acute (3) Polysubstance abuse: Status: Acute (4) Abnormal stress test: Status: Acute (5) LV dysfunction: Status: Acute Left tibia fracture s/p External Fixators - Orthopedic surgery on board - Mild erythema round insertion sites, no discharge however noted to have sig edema and fluid blisters - Keep leg elevated - PT on board - PO pain medication Acute systolic heart failure exacerbation with increasing B/L LE edema - Non-ischemic s/p PCI - no sig cad - Cardiology on board - Will give Lasix 20 mg IV x 1 now - May consider daily scheduled - Potassium replacement Hypertension - Metoprolol 12.5 mg PO BID Poly-substance abuse - Hx of meth Additional A&P Information DVT ppx: lovenox 40mg s/c daily Dispo: currently homeless, cannot be discharged safely with external fixator in place , ongoing disposition planning Stable for discharge once placement arranged. Attestations Medical Necessity Statement*: Will require further hospitalization for post op management and placement arragement Time Spent in Patient Care: Greater than 35 minutes (>than 50% of time spent in counselling and/or direct pt care on unit) . Coding Level of Care Code Acute Explosive Operator Bomb for g Fwd Diagnoses Fracture tibia/fibula S82.209A; S82.409A Ventricular tachycardia (paroxysmal) I47.2 Polysubstance abuse F19.10 Abnormal stress test R94.39 LV dysfunction I51.9
[2020-08-03] MEDS: ALPRAZolam 0.25 mg Tablet PO (21:45)
[2020-08-03] MEDS: temazepam 15 mg Capsule PO (21:45)
[2020-08-04] VITALS (8 sets, daily range): BP systolic 128–154; BP diastolic 71–90; PULSE 67–100; RESP 14–20; TEMP 36.4–37.2; O2SAT 93–100
[2020-08-04] MEDS: HYDROcodone-acetaminophen 5-325 mg Tablet 2 TAB PO ×5 (01:48→23:48)
--- NOTE | 2020-08-04 02:50 | PC.NURSE ---
Patient took off his telemetry. He said he does not want to wear it tonight. He states he keeps getting tangled up in it. Will try and put it back on in the morning.
[2020-08-04 07:02] LABS: Basophils # 0.1 10^3/uL (0.0-0.1); Basophils % 1.1 %; Eosinophils # 0.5 10^3/uL (0.0-0.8); Eosinophils % 5.9 %; Hematocrit 37.3 % (42.0-52.0); Hemoglobin 12.8 g/dL (11.7-16.6); Lymphocytes # 1.6 10^3/uL (0.8-4.8); Lymphocytes % 17.6 %; Mean Corpuscular HGB Conc 34.3 g/dL (30.0-36.0); Mean Corpuscular Hemoglobin 31.6 pg (28.0-34.0); Mean Corpuscular Volume 92.1 fL (80-94); Mean Platelet Volume 11.9 fL (7.4-10.4); Monocytes # 1.4 10^3/uL (0.2-0.9); Monocytes % 15.7 %; Neutrophils # 5.34 10^3/uL (1.8-7.7); Neutrophils % 59.3 %; Nucleated Red Blood Cells % 0 %; Platelet Count 219 10^3/cmm (130-400); Red Blood Count 4.05 10^6/uL (4.1-5.3); Red Cell Distribution Width 12.8 % (12.1-15.1)
[2020-08-04 07:26] LABS: Alanine Aminotransferase 186 U/L (0-41); Albumin Level 3.3 g/dL (3.5-5.2); Alkaline Phosphatase 80 IU/L (40-130); Anion Gap 12.3 (5-19); Aspartate Amino Transferase 120 U/L (0-40); Blood Urea Nitrogen 17 mg/dL (6-20); Calcium 8.2 mg/dL (8.5-10.5); Carbon Dioxide 28 mmol/L (22-29); Chloride 96 mmol/L (98-107); Creatinine Clr Calc Pharmacy 165.7678; Globulin 4.1 g/dL (1.3-4.6); Glomerular Filtration Rate 143.8 mL/min (90-130); Glucose 113 mg/dL (65-115); Osmolality Calculated 276 mOsm/kg (285-295); Potassium 4.3 mmol/L (3.5-5.1); Sodium 132 mmol/L (136-145); Total Bilirubin 0.5 mg/dL (0.15-1.2); Total Protein 7.4 g/dL (6.6-8.7)
--- NOTE | 2020-08-04 08:13 | PM.PN ---
Subjective Subjective: Interval history: Patient alert and talking today. I discussed doing surgery on the patient. We will likely proceed with surgery this week. Vitals/I&O/Wt Last Vital Signs Temp 98.8 F 08/04/20 07:47 Pulse 86 08/04/20 07:47 Resp 14 08/04/20 07:47 BP 142/90 08/04/20 07:47 Pulse Ox 97 08/04/20 07:47 08/03/20 08/04/20 08/04/20 22:59 06:59 14:59 Intake Total 240 / 1080 Output Total 950 / 2000 1300 / 3300 Balance -710 / -920 -1300 / -2220 Physical Exam Narrative: EXAM NARRATIVE: Swelling significantly improved. Pin sites are looking slightly red. Data : 08/04/20 06:41 08/04/20 06:41 A&P Assessment and plan (1) Fracture tibia/fibula: Patient is approximately a week out patient is approximately a week out. At this point I will reevaluate the patient swelling on Thursday morning. I will possibly do the surgery on Thursday if the swelling is down and the surgery schedule allows. But we will plan on doing surgery this week he is tentatively scheduled for Thursday. Patient is homeless and stated if he leaves here he will go to a friend's house I would like to keep him in the hospital to allow for swelling to continue to go down and have access to be able to do surgery if a surgery cancels of mine. Status: Acute Attestations Medical Necessity Statement*: pt is homeless Coding Level of Care Code Acute Shift Coordinator for [facility] Fwd Diagnoses Fracture tibia/fibula S82.209A; S82.409A
[2020-08-04] MEDS: lisinopril 5 mg Tablet PO (08:36)
[2020-08-04] MEDS: aspirin 81 mg EC Tablet PO (08:36)
[2020-08-04] MEDS: metoprolol succinate ER (24 HR) 25 mg Tablet 12.5 MG PO (08:36)
[2020-08-04] MEDS: sennosides-docusate Tablet 1 TAB PO (08:36)
[2020-08-04] MEDS: ALPRAZolam 0.25 mg Tablet PO ×2 (08:36→18:36)
--- NOTE | 2020-08-04 09:48 | PC.OT ---
Occupational therapy treatment attempted. Patient declined reporting he is in too much pain. Patient expressed that he will try tomorrow if he is feeling better.
[2020-08-04] MEDS: enoxaparin 40 mg/0.4 mL Syringe SUBCUT (12:14)
--- NOTE | 2020-08-04 13:23 | P.PN_ITS ---
Subjective Subjective: Interval history: 50-year-old female with past medical history significant for polysubstance abuse, presented to the hospital after he sustained a tibial plateau fracture for which an external fixator was placed on 07/27/2020. Postoperatively patient had EKG abnormality with prolonged run of V-tach. He was asymptomatic at the time. Lexiscan was performed which showed r eversible perfusion defect in the LAD territory. EKG showed left ventricular ejection fraction of 35 to 40% with apical hypokinesis. Patient was started on aspirin 81 mg daily and Lipitor as subsequently taken for a coronary angiogram which did not show any evidence of obstructive coronary artery disease. Discharge was delayed due to placement with external fixator and unsafe discharge. Subjective 08/02/20 Patient stated he felt find and just wanted to sleep. no fever, chills, nausea or vomiting documented overnight. 08/03/20 Unchanged, awaiting placement 08/04/20 No new clinical events overnight Medications: Reviewed: Yes Vitals/I&O/Wt Last Vital Signs Temp 97.7 F 08/04/20 12:00 Pulse 100 08/04/20 12:00 Resp 16 08/04/20 12:00 BP 128/71 08/04/20 12:00 Pulse Ox 93 08/04/20 12:00 08/03/20 08/04/20 08/04/20 22:59 06:59 14:59 Intake Total 240 / 1080 600 / 600 Output Total 950 / 2000 1300 / 3300 650 / 650 Balance -710 / -920 -1300 / -2220 -50 / -50 Physical Exam Narrative: EXAM NARRATIVE: EXAM NARRATIVE: GEN: Awake, alert and oriented, no acute distress CVS: S1S2 N RS: CTA B/L Abd: Soft, nt/nd , bs+ CREDIT VERIFIER: no focal neuro deficits EXT: LLE in extrenal fixator extending to thigh, surrounding skin with few blebs Data : 08/04/20 06:41 08/04/20 06:41 A&P Assessment and plan (1) Fracture tibia/fibula: Status: Acute (2) Ventricular tachycardia (paroxysmal): Status: Acute (3) Polysubstance abuse: Status: Acute (4) Abnormal stress test: Status: Acute (5) LV dysfunction: Status: Acute Left tibia fracture s/p External Fixators - Orthopedic surgery on board - Keep leg elevated - PT on board - PO pain medication - Possible plan for surgery on thursday Acute systolic heart failure exacerbation with increasing B/L LE edema - Non-ischemic s/p PCI - no sig cad - Cardiology on board - May consider daily scheduled - Potassium replacement - stable - Lasix 40 mg PO daily Hypertension - Metoprolol 12.5 mg PO BID Poly-substance abuse - Hx of meth Additional A&P Information DVT ppx: lovenox 40mg s/c daily Dispo: currently homeless, cannot be discharged safely with external fixator in place , ongoing disposition planning Attestations Medical Necessity Statement*: Will require further hospitalization for surgical intervention on thursday Time Spent in Patient Care: Greater than 35 minutes (>than 50% of time spent in counselling and/or direct pt care on unit) . Coding Level of Care Code Acute Physical Education Instructor for g Fwd Diagnoses Fracture tibia/fibula S82.209A; S82.409A Ventricular tachycardia (paroxysmal) I47.2 Polysubstance abuse F19.10 Abnormal stress test R94.39 LV dysfunction I51.9
[2020-08-04] MEDS: temazepam 15 mg Capsule PO (21:56)
[2020-08-05] VITALS (7 sets, daily range): BP systolic 110–142; BP diastolic 61–84; PULSE 78–93; RESP 15–18; TEMP 36.7–37.4; O2SAT 97–100
[2020-08-05] MEDS: ALPRAZolam 0.25 mg Tablet PO ×3 (02:04→21:28)
[2020-08-05] MEDS: HYDROcodone-acetaminophen 5-325 mg Tablet 2 TAB PO ×4 (05:50→21:27)
--- NOTE | 2020-08-05 06:24 | PC.NURSE ---
SHIFT SUMMARY Has rested for intervals. Receiving po Hydrocodone for pain c/o in left leg. External fixator intact with leg on pillow. Cleaned around pins tonight with peroxide/NS. Has some blisters to left leg medial below knee area that remain fluid filled and some that have burst and skin is peeling. Had a good BM tonight and voids per urinal. Asks for snacks often.
--- NOTE | 2020-08-05 08:44 | PC.OT ---
Discharging patient from occupational therapy. He has reached his highest level of function in this setting, no further treatment indicated.
[2020-08-05] MEDS: aspirin 81 mg EC Tablet PO (09:21)
[2020-08-05] MEDS: sennosides-docusate Tablet 1 TAB PO (09:21)
[2020-08-05] MEDS: metoprolol succinate ER (24 HR) 25 mg Tablet 12.5 MG PO (09:22)
[2020-08-05] MEDS: lisinopril 5 mg Tablet PO (09:22)
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
[2020-08-05] MEDS: enoxaparin 40 mg/0.4 mL Syringe SUBCUT (11:53)
--- NOTE | 2020-08-05 15:25 | PM.PN ---
Subjective Subjective: Interval history: 50-year-old female with past medical history significant for polysubstance abuse, presented to the hospital after he sustained a tibial plateau fracture for which an external fixator was placed on 07/27/2020. Postoperatively patient had EKG abnormality with prolonged run of V-tach. He was asymptomatic at the time. Lexiscan was performed which showed reversible perfusion defect in the LAD territory. EKG showed left ventricular ejection fraction of 35 to 40% with apical hypokinesis. Patient was started on aspirin 81 mg daily and Lipitor as subsequently taken for a coronary angiogram which did not show any evidence of obstructive coronary artery disease. Discharge was delayed due to placement with external fixator and unsafe discharge. Subjective 08/02/20 Patient stated he felt find and just wanted to sleep. no fever, chills, nausea or vomiting documented overnight. 08/03/20 Unchanged, awaiting placement 08/04/20 No new clinical events overnight 08/05/20 Stable overnight Medications: Reviewed: Yes Vitals/I&O/Wt Last Vital Signs Temp 98.7 F 08/05/20 11:36 Pulse 91 08/05/20 11:36 Resp 16 08/05/20 11:36 BP 123/78 08/05/20 11:36 Pulse Ox 98 08/05/20 11:36 08/05/20 08/05/20 08/05/20 06:59 14:59 22:59 Intake Total 240 / 1200 240 / 240 Output Total 1075 / 3875 1275 / 1275 Balance -835 / -2675 -1035 / -1035 Physical Exam Narrative: EXAM NARRATIVE: EXAM NARRATIVE: GEN: Awake, alert and oriented, no acute distress CVS: S1S2 N RS: CTA B/L Abd: Soft, nt/nd , bs+ WHEAT SHIPPER: no focal neuro deficits EXT: LLE in extrenal fixator extending to thigh, surrounding skin with few blebs Data : 08/04/20 06:41 08/04/20 06:41 A&P Assessment and plan (1) Fracture tibia/fibula: Status: Acute (2) Ventricular tachycardia (paroxysmal): Status: Acute (3) Polysubstance abuse: Status: Acute (4) Abnormal stress test: Status: Acute (5) LV dysfunction: Status: Acute Left tibia fracture s/p External Fixators - Orthopedic surgery on board - Keep leg elevated - PT on board - PO pain medication - Possible plan for surgery on thursday if edema improves - NPO at midnight Acute systolic heart failure exacerbation with increasing B/L LE edema - Non-ischemic s/p PCI - no sig cad - Cardiology on board - May consider daily scheduled - Potassium replacement - Lasix 40 mg IV BID Hypertension - Metoprolol 12.5 mg PO BID Poly-substance abuse - Hx of meth Additional A&P Information DVT ppx: lovenox 40mg s/c daily Dispo: currently homeless, cannot be discharged safely with external fixator in place , ongoing disposition planning Attestations Medical Necessity Statement*: Will require further hospitalization for post op management and HF rq IV lasix Time Spent in Patient Care: Greater than 35 minutes (>than 50% of time spent in counselling and/or direct pt care on unit). Coding Level of Care Code Acute Jockey Valet for g Fwd Diagnoses Fracture tibia/fibula S82.209A; S82.409A Ventricular tachycardia (paroxysmal) I47.2 Polysubstance abuse F19.10 Abnormal stress test R94.39 LV dysfunction I51.9
[2020-08-05] MEDS: FUROsemide 10 mg/mL SDV 4mL 40 MG IVP (16:16)
--- NOTE | 2020-08-05 18:33 | PC.NURSE ---
PT REQUESTED XANAX FOR ANXIETY, HAD TO GET ORDER RENEWED BY . INFORMED PT THAT THIS COULD TAKE A LITTLE BIT OF TIME. GOT ORDER AND TOOK MED TO PTS ROOM, PT VERY SLEEPY. DID NOT GIVE PRN DOSE OF XANAX.
[2020-08-05] MEDS: temazepam 15 mg Capsule PO (21:28)
[2020-08-06] VITALS (17 sets, daily range): BP systolic 93–166; BP diastolic 62–84; PULSE 77–105; RESP 14–20; TEMP 36.5–37.3; O2SAT 97–100
--- NOTE | 2020-08-06 | XR_ITS ---
WS: [id number] Exam: XR tibia fibula LT 2V [id number] Date/Time of Exam: 08/06/2020 12:00 AM Reason For Exam: ORIF tibia Exam: XR tibia fibula LT 2V [id number] Date/Time of Exam: 08/06/2020 12:00 AM Reason For Exam: ORIF tibia Intraoperative C-arm images of the proximal left tibia and fibula are submitted for evaluation. The i mages are in the lateral and AP projections. There is plate and screw fixation involving a comminuted fracture of the upper metaphysis of the tibi a. Bilateral plates and multiple screws stabilize the fracture in satisfactory alignment for healing. There is also a comminuted fracture of the fibular neck. There is some displacement of the fibular f racture. XR/XR tibia fibula LT 2V [id number] IMPRESSION: 1. Internal orthopedic fixation involving a comminuted fracture of the upper me taphysis of the tibia. Fracture alignment appears to be satisfactory for healin g. 2. Displaced comminuted proximal fibular fracture.
--- NOTE | 2020-08-06 | SCC_ITS ---
Procedure Done: 1. ORIF left bicondylar tibial plateau fracture 2. Removal of ex fix from left leg 114.1 seconds of fluoroscopic guidance, for a cumulative dose of 7.83 mGy, was provided to Dr. Knutson by the radiology department. C-arm images of the LEFT tibia fibula were saved for the patient's permanent record. [facility]
[2020-08-06] MEDS: HYDROcodone-acetaminophen 5-325 mg Tablet 2 TAB PO ×2 (02:20→09:10)
[2020-08-06] MEDS: FUROsemide 10 mg/mL SDV 4mL 40 MG IVP ×2 (04:28→19:45)
[2020-08-06 05:24] LABS: Basophils # 0.2 10^3/uL (0.0-0.1); Basophils % 1.3 %; Eosinophils # 0.5 10^3/uL (0.0-0.8); Eosinophils % 4.5 %; Hematocrit 39.4 % (42.0-52.0); Hemoglobin 13.1 g/dL (11.7-16.6); Lymphocytes # 1.8 10^3/uL (0.8-4.8); Mean Corpuscular HGB Conc 33.2 g/dL (30.0-36.0); Mean Corpuscular Hemoglobin 31.5 pg (28.0-34.0); Mean Corpuscular Volume 94.7 fL (80-94); Mean Platelet Volume 12.2 fL (7.4-10.4); Monocytes # 1.8 10^3/uL (0.2-0.9); Monocytes % 15.2 %; Neutrophils # 7.55 10^3/uL (1.8-7.7); Neutrophils % 63.3 %; Nucleated Red Blood Cells % 0 %; Platelet Count 260 10^3/cmm (130-400); Red Blood Count 4.16 10^6/uL (4.1-5.3); Red Cell Distribution Width 13.1 % (12.1-15.1); White Blood Count 11.9 10^3/uL (4.0-10.0)
--- NOTE | 2020-08-06 06:58 | P.PN_ITS ---
Subjective Subjective: Interval history: patient resting comfortably; swelling down will plan on OR today Vitals/I&O/Wt Last Vital Signs Temp 98.1 F 08/06/20 03:14 Pulse 78 08/06/20 03:14 Resp 16 08/06/20 03:14 BP 166/63 08/06/20 03:14 Pulse Ox 100 08/06/20 03:14 08/05/20 08/05/20 08/06/20 14:59 22:59 06:59 Intake Total 240 / 240 240 / 480 Output Total 1275 / 1275 1150 / 2425 1000 / 3425 Balance -1035 / -1035 -910 / -1945 -1000 / -2945 Data : 08/06/20 04:34 08/04/20 06:41 A&P Assessment and plan (1) Fracture tibia/fibula: plan OR today Status: Acute Attestations Medical Necessity Statement*: fractured tibial plateau Coding Level of Care Code Acute Steel Construction Worker for g Fwd Diagnoses Fracture tibia/fibula S82.209A; S82.409A
[2020-08-06] MEDS: lisinopril 5 mg Tablet PO (09:10)
[2020-08-06] MEDS: metoprolol succinate ER (24 HR) 25 mg Tablet 12.5 MG PO (09:10)
[2020-08-06] MEDS: aspirin 81 mg EC Tablet PO (09:11)
[2020-08-06] MEDS: sennosides-docusate Tablet 1 TAB PO (09:11)
--- NOTE | 2020-08-06 11:30 | P.PN_ITS ---
Subjective Subjective: Interval history: waiting for surgery. asks for Q tips and water. explained no water Medications: Reviewed: Yes Vitals/I&O/Wt Last Vital Signs Temp 98.5 F 08/06/20 07:42 Pulse 83 08/06/20 07:42 Resp 14 08/06/20 07:42 BP 127/80 08/06/20 07:42 Pulse Ox 99 08/06/20 07:42 08/05/20 08/06/20 08/06/20 22:59 06:59 14:59 Intake Total 240 / 480 Output Total 1150 / 2425 1000 / 3425 740 / 740 Balance -910 / -1945 -1000 / -2945 -740 / -740 Physical Exam Narrative: EXAM NARRATIVE: N: alert and oriented. non focal H: reg without sign murmur L: clear but dimished throughout A: soft nt/nd nl BS E: left leg with ext fixation and min erythema around fixators. edema in that leg, none on right. Data : 08/06/20 04:34 08/04/20 06:41 A&P Assessment and plan (1) LV dysfunction: on medication Status: Acute (2) Abnormal stress test: had cath as above Status: Acute (3) Polysubstance abuse: will advise to abstain Status: Acute (4) Fracture tibia/fibula: per ortho, going back to OR today. Will need therapy. Awaiting swing bed/financial assistance Status: Acute Attestations Medical Necessity Statement*: will be ready for discharge after surgery/ per surgery Coding Level of Care Code Acute Feed Mill Operator for [facility] Diagnoses LV dysfunction I51.9 Abnormal stress test R94.39 Polysubstance abuse F19.10 Fracture tibia/fibula S82.209A; S82.409A
[2020-08-06] MEDS: enoxaparin 40 mg/0.4 mL Syringe SUBCUT (11:57)
--- NOTE | 2020-08-06 12:28 | W.PM.OPSUD ---
Surgery/Procedure H&P Update DATE OF PROCEDURE: August 06, 2020 DATE H&P PERFORMED: 07/30/20 H&P UPDATE INFORMATION: I have reviewed H&P completed within last 30 days, I have examined patient prior to procedure and No changes to prior documentation PREOP DIAGNOSIS: Abnormal stress test/ Ventricular tachycardia/LV dysfunction PLANNED PROCEDURE: Operation Date: 07/27/20 15:00 Proposed Procedures p left leg external fixation, tibial plateau fracture(Left) - Brandon Knutson DO Operation Date: 08/01/20 11:30 Proposed Procedures p left Cardiac Catheterization 22162 r94.39(Left) - Iam Guevara M.D Operation Date: 08/06/20 11:15 Proposed Procedures p ORIF Tibia/Fibula(Left) - Brandon Knutson DO s Hardware Removal External Fixator Lower(Left) - Brandon Knutson DO
--- NOTE | 2020-08-06 12:30 | ANES.PREANE2 ---
Pre-Anesthetic Assessment Pre-Anesthetic Assessment: Height/Weight: Height 1.8 m Weight 81.647 kg Temp Pulse Resp BP Pulse Ox 98.8 F 77 18 133/73 98 08/06/20 12:29 08/06/20 12:29 08/06/20 12:29 08/06/20 12:29 08/06/20 12:29 Preop Diagnosis: Abnormal stress test/ Ventricular tachycardia/LV dysfunction Proposed Procedure: Operation Date: 07/27/20 15:00 Proposed Procedures p left leg external fixation, tibial plateau fracture(Left) - Brandon Knutson DO Operation Date: 08/01/20 11:30 Proposed Procedures p left Cardiac Catheterization 56232 r94.39(Left) - Iam Guevara M.D Operation Date: 08/06/20 11:15 Proposed Procedures p ORIF Tibia/Fibula(Left) - Brandon Knutson DO s Hardware Removal External Fixator Lower(Left) - Brandon Knutson DO Was Beta Flavio taken within 24 hours: N/A Was Clonidine taken within 24 hours: N/A Social: Social History: Tobacco and No alcohol Comment: poly substance abuse Exam: Pre-Anes Outpt Exam: alert, oriented x 3 and regular rate & rhythm Airway: Submandibular: WNL Cervical ROM: WNL MP: 2 Dentition: Chipped Additional comments: Poor dentition, missing several Pulmonary: Pulmonary: COPD CV/HEM: CV/HEM: Arrythmia, CAD and CHF Neuropsych: Neuropsych: Anxiety Anesthetic Plan: ASA status: 3 Anesthesia: General Risk of > 500 ml blood loss (7ml/kg in children): No Meds/Allergies Current Medications: Current Medications Generic Name Dose Route Start Last Admin Trade Name Freq PRN Reason Stop Dose Admin Alprazolam 0.25 mg 08/05/20 18:10 08/05/20 21:28 Alprazolam 0.25 Mg Tablet PO 0.25 mg TID PRN Administration ANXIETY Aspirin 81 mg 07/30/20 09:00 08/06/20 09:11 Aspirin 81 Mg Ec Tablet PO 81 mg DAILY ANKIT Administration Enoxaparin Sodium 40 mg 07/29/20 12:30 08/06/20 11:57 Enoxaparin 40 Mg /0.4 Ml Syringe SUBCUT 40 mg Q24H ANKIT Administration Furosemide 40 mg 08/05/20 15:30 08/06/20 04:28 Furosemide 10 Mg /Ml Sdv 4ml IVP 40 mg Q12H ANKIT Administration Lisinopril 5 mg 08/04/20 09:00 08/06/20 09:10 Lisinopril 5 Mg Tablet PO 5 mg DAILY ANKIT Administration Metoprolol Succina te 12.5 mg 07/29/20 18:25 08/06/20 09:10 Metoprolol Succi david Er (24 Hr) 25 Mg Tablet PO 12.5 mg DAILY ANKIT Administration Senna/Docusate Sod ium 1 tab 07/27/20 09:00 08/06/20 09:11 Sennosides-Docus ate Tablet PO 1 tab DAILY ANKIT Administration Temazepam 15 mg 08/05/20 19:32 08/05/20 21:28 Temazepam 15 Mg Capsule PO 15 mg BEDTIME PRN Administration INSOMNIA PFSH Anesthesia PFSH: Medical History No pertinent past medical history Surgical History History of ankle surgery Family History Other No pertinent family history Social History Smoking and tobacco status: current every day smoker cigarettes Alcohol intake: never Substance/Drug Use: current Substance/Drug use type: Methamphetamine Data Anesthesia CBC & Chem 7: 08/06/20 04:34 08/04/20 06:41 Other Labs: Laboratory Results - last 48 hr 08/06/20 08/06/20 04:34 04:34 WBC 11.9 H RBC 4.16 Hgb 13.1 Hct 39.4 L MCV 94.7 H MCH 31.5 MCHC 33.2 RDW 13.1 Plt Count 260 MPV 12.2 H Neut % (Auto) 63.3 Lymph % (Auto) 15.0 [place] % (Auto) 15.2 Eos % (Auto) 4.5 Baso % (Auto) 1.3 Neut # (Auto) 7.55 Lymph # (Auto) 1.8 [place] # (Auto) 1.8 H Eos # (Auto) 0.5 Baso # (Auto) 0.2 H Nucleated RBC % (auto) 0 Nucleated RBCs # 0.0 Sodium Cancelled Potassium Cancelled Chloride Cancelled Carbon Dioxide Cancelled Anion Gap Cancelled BUN Cancelled Creatinine Cancelled GFR Calculation Cancelled Glucose Cancelled Calculated Osmolality Cancelled Calcium Cancelled Total Bilirubin Cancelled AST Cancelled ALT Cancelled Alkaline Phosphatase Cancelled Total Protein Cancelled Albumin Cancelled Globulin Cancelled Cardiac Studies: No Data to Display
[2020-08-06] MEDS: sodium chloride 0.9% 1,000 ML 30 ML IV (12:35)
[2020-08-06] MEDS: HYDROmorphone 1 mg/mL INJ 1 mL 0.5 MG IVP ×2 (12:49→16:01)
--- NOTE | 2020-08-06 15:42 | PM.OP ---
Operative Report Date of procedure: August 06, 2020 Pre-op Diagnosis: Bicondylar tibial plateau fracture Post-op diagnosis: same Procedure Done: 1. ORIF left bicondylar tibial plateau fracture 2. Removal of ex fix from left leg Surgeon: Brandon Knutson Anesthesia: General Estimated blood loss (mL): 5 Condition: stable Disposition: PACU Procedure: 1. ORIF left bicondylar tibial plateau fracture 2. Removal of ex fix from left leg Patient is brought to the operative suite after undergoing anesthesia. Patient had the external fixator removed. Once the pins were removed. The pins removed by an doing the bolts and the rods removed and the Schanz pins were removed line screen of the bone. Patient's leg was then prepped and draped normal sterile fashion. Skin incision made laterally. The lateral part of the bicondylar tibial plateau fracture was reduced once this was reduced then a plate was placed laterally to buttress the fracture over. Next attention was brought to the medial side. Skin incision was made on the medial side there is fracture was identified once fracture was reduced then a medial plate was placed and then 3 screws were placed at the proximal end of the fracture. These were locking screws. And then 3 screws were placed distally. Attention was then brought back to the lateral side. Multiple screws were placed outside the plate to help reduce the fracture fragments. At the joint line. Joint line was then anatomically reduced and then multiple screws were placed through the plate locking plates as well as distally cortical screws. AP lateral fluoroscopy ensured that the fracture and hardware are in the appropriate position. And wounds were irrigated and closed with Vicryl and nylon suture. Sterile dressings were applied and patient was transferred to the PACU in stable condition.
--- NOTE | 2020-08-06 16:14 | SUR.PHASEI ---
PT AWAKE ALERT TAKING ICE CHIPS PT DRESSING D/I DISTAL FOOT WARM WITH CAP REFILL LESS THAN 3 SECONDS ICE TO KNEE ORDERED BY DR SOTOMAYOR, REGULAR ICE PACK
--- NOTE | 2020-08-06 16:57 | ANE.PACU2 ---
Inpatient post-anesthesia follow up: Airway intact: Yes Vital signs: Temperature 98.2 F Pulse Rate [Monito r] 86 Pulse Rate 100 Respiratory Rate 18 Blood Pressure [Ri ght Arm] 139/86 Blood Pressure 121/76 Pulse Oximetry 99 Oxygen Delivery Me thod Room Air Oxygen Flow Rate 6 Fraction of Inspir ed Oxygen Hydration adequate: Yes Nausea and vomiting: No Pain level: 3 Mental status: Baseline
[2020-08-06] MEDS: HYDROcodone-acetaminophen 5-325 mg Tablet PO ×2 (19:14→23:56)
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
[2020-08-06] MEDS: temazepam 15 mg Capsule PO (20:58)
[2020-08-06] MEDS: ALPRAZolam 0.25 mg Tablet PO (21:10)
--- NOTE | 2020-08-07 00:49 | PC.NURSE ---
BLEEDING/INCISION Noted some bleeding through dressing from right popliteal area. Placed pad under leg to monitor bleeding
[2020-08-07 04:00] VITALS: BP 148/75; PULSE 84; RESP 18; TEMP 37.2; O2SAT 97
[2020-08-07] MEDS: enoxaparin 40 mg/0.4 mL Syringe SUBCUT (04:06)
[2020-08-07] MEDS: HYDROcodone-acetaminophen 5-325 mg Tablet PO ×5 (04:07→21:39)
[2020-08-07] MEDS: ALPRAZolam 0.25 mg Tablet PO ×2 (05:10→21:39)
--- NOTE | 2020-08-07 07:23 | PC.NURSE ---
SHIFT SUMMARY Has not rested well tonight. call center rn light freq asking for snacks, drinks and pain meds. Upset that he isn't getting IV Dilaudid. Did message during night about pt c/o not receiving adequate pain relief with no new orders obtained. Dressing/raghav wrap in place to left leg. Neurovascular check WNL. Had small amt bleeding from popliteal area through dressing and placed pad under leg to monitor. No further bleeding noted.
[2020-08-07 08:08] VITALS: BP 144/75; PULSE 79; RESP 16; TEMP 36.6; O2SAT 98
[2020-08-07] MEDS: sennosides-docusate Tablet 1 TAB PO (08:12)
[2020-08-07] MEDS: aspirin 81 mg EC Tablet PO (08:12)
[2020-08-07] MEDS: lisinopril 5 mg Tablet PO (08:12)
[2020-08-07] MEDS: metoprolol succinate ER (24 HR) 25 mg Tablet 12.5 MG PO (08:12)
[2020-08-07] MEDS: FUROsemide 10 mg/mL SDV 4mL 40 MG IVP ×2 (08:13→22:24)
--- NOTE | 2020-08-07 08:14 | P.PN_ITS ---
Subjective Subjective: Interval history: Patient having pain. Vitals/I&O/Wt Last Vital Signs Temp 97.9 F 08/07/20 08:08 Pulse 79 08/07/20 08:08 Resp 16 08/07/20 08:08 BP 144/75 08/07/20 08:08 Pulse Ox 98 08/07/20 08:08 08/06/20 08/07/20 08/07/20 22:59 06:59 14:59 Intake Total 1580 / 1630 1000 / 2630 Output Total 350 / 1090 1600 / 2690 200 / 200 Balance 1230 / 540 -600 / -60 -200 / -200 Physical Exam Narrative: EXAM NARRATIVE: Dressing clean dry and intact. Patient is moving his toes sensation is intact. Data : 08/06/20 04:34 08/04/20 06:41 A&P Assessment and plan (1) Fracture tibia/fibula: Postop day #1 open reduction internal fixation of bicondylar tibial plateau fracture. Patient is going to be nonweightbearing for the next 3 months. He can do range of motion exercises with his knee. He should have ice on his knee is much as possible. He can do active and passive range of motion exercises with his knee. Status: Acute Attestations Medical Necessity Statement*: Patient can be discharged but he has to remain nonweightbearing on his left lower extremity. He needs to have a safe environment so is not going to walk on his left lower extremity. Coding Level of Care Code Acute Automatic Vulcanizing Operator for g Fwd Diagnoses Fracture tibia/fibula S82.209A; S82.409A
--- NOTE | 2020-08-07 10:44 | PC.CHAP ---
Pastoral Care Encounter/Spiritual Assessment Type of Contact [] Declined electrical accessories assembler visit [] Patient/Family/Request visit [] Outpatient visit [] Follow-up visit [] Physician referral [] Code/Alert [] Routine visit [] Staff referral [] Actively dying [] Patient sleeping [] Family support [] [] Out of room [] Palliative care [] [] Receiving care in room [] Pre-surgical visit [] Trauma [] Long length of stay [] ICU visit [] Other: Relational/Emotional Strength [] Patient feels connected with others/family/visitors/staff [] Distress [] Loneliness/isolation [] Abandonment Spirituality of Patient [] Person of Anne [] Attends Denominational of their Anne [] Believes in Prayer [] Reads Bible or Moravian materials [] There are Spiritual issues to be addressed Traffic Sergeant Interventions [] Prayer [] Active listening [] Non-anxious presence [] Spiritual/emotional support [] Crisis/trauma care [] Spiritual counseling [] Bereavement support [] Provided bereavement packet [] Provided Bible/devotional materials [] Provided toy/stuffed animal, coloring book to patient or family member [] Provided Communion [] Anointing/[place] [] Salvation [] Completed spiritual assessment [] Other: Impact on Illness or Injury [] Angry [] Fearful [] Anxious [] Often cries [] Exhaustion [] Unable to work [] Unable to attend adventism [] Unable to walk/stand [] Unable to read [] Unable to drive [] Unable to eat/drink [] Unable to sleep [] Unable to be with family [] Patient intubated [] Other: Summary Time spent with patient
--- NOTE | 2020-08-07 10:44 | PC.CHAP ---
Pastoral Care Encounter/Spiritual Assessment Type of Contact [] Declined acid supervisor visit [] Patient/Family/Request visit [] Outpatient visit [] Follow-up visit [] Physician referral [] Code/Alert [x] Routine visit [] Staff referral [] Actively dying [] Patient sleeping [] Family support [] [] Out of room [] Palliative care [] [x] Receiving care in room [] Pre-surgical visit [] Trauma [] Long length of stay [] ICU visit [] Other: Relational/Emotional Strength [] Patient feels connected with others/family/visitors/staff [] Distress [] Loneliness/isolation [] Abandonment Spirituality of Patient [] Person of Anne [] Attends Synagogue of their Anne [] Believes in Prayer [] Reads Bible or Sikh materials [] There are Spiritual issues to be addressed Mexican Food Maker Interventions [] Prayer [] Active listening [] Non-anxious presence [] Spiritual/emotional support [] Crisis/trauma care [] Spiritual counseling [] Bereavement support [] Provided bereavement packet [] Provided Bible/devotional materials [] Provided toy/stuffed animal, coloring book to patient or family member [] Provided Communion [] Anointing/[place] [] Salvation [] Completed spiritual assessment [] Other: Impact on Illness or Injury [] Angry [] Fearful [] Anxious [] Often cries [] Exhaustion [] Unable to work [] Unable to attend buddhism [] Unable to walk/stand [] Unable to read [] Unable to drive [] Unable to eat/drink [] Unable to sleep [] Unable to be with family [] Patient intubated [] Other: Summary Time spent with patient
[2020-08-07 11:40] VITALS: BP 113/68; PULSE 93; RESP 18; TEMP 36.3; O2SAT 98
[2020-08-07 16:00] VITALS: BP 130/74; PULSE 82; RESP 16; TEMP 36.9; O2SAT 98
--- NOTE | 2020-08-07 16:51 | P.PN_ITS ---
Subjective Subjective: Interval history: Patient mostly complains of not sleeping. RN reports pt up all night eating. Medications: Reviewed: Yes Vitals/I&O/Wt Last Vital Signs Temp 97.3 F L 08/07/20 11:40 Pulse 93 08/07/20 11:40 Resp 18 08/07/20 11:40 BP 113/68 08/07/20 11:40 Pulse Ox 98 08/07/20 11:40 08/07/20 08/07/20 08/07/20 06:59 14:59 22:59 Intake Total 1000 / 2630 1370 / 1370 Output Total 1600 / 2690 1700 / 1700 Balance -600 / -60 -330 / -330 Physical Exam Narrative: EXAM NARRATIVE: Patient seen lying in bed with his left leg wrapped the extra office sitters came off. He is in minimal distress due to sleep deprivation per his report. Heart regular normal S1-S2 without murmurs clicks gallops or rubs lungs clear to auscultation without wheezes rales or rhonchi abdomen soft nontender nondistended positive bowel sounds extremities left extremity is wrapped the most cephalad external fixator point is less erythematous. Overall the leg with erythema but this is greatly decreased with the removal of the apparatus. Data : 08/06/20 04:34 08/04/20 06:41 A&P Assessment and plan (1) LV dysfunction: Remains on lasix 40 mg IVP. check BMP and mg in am. will need to change to oral. also should add raghav-i at discharege. Status: Acute (2) Abnormal stress test: had cath as above Status: Acute (3) Polysubstance abuse: will advise to abstain Status: Acute (4) Fracture tibia/fibula: S/p Ext fixator removal and new hardware placed. Pt ambulatory with walker 70 ft [facility]. Status: Acute Additional A&P Information Insomnia - use ativan 1 mg po nightly Pain - added high dose celebrex 400 mg now followed by 200mg bid- will cont on d/c Attestations Medical Necessity Statement*: Pt at risk without home to discharge to. Await safe discharge Coding Level of Care Code Acute Public Health Representative for g Fwd Diagnoses LV dysfunction I51.9 Abnormal stress test R94.39 Polysubstance abuse F19.10 Fracture tibia/fibula S82.209A; C93.621X
[2020-08-07] MEDS: LORazepam 1 mg Tablet PO (17:19)
[2020-08-07] MEDS: CELEcoxib 200 mg Capsule 400 MG PO (17:19)
--- NOTE | 2020-08-07 18:27 | PC.NURSE ---
SHIFT SUMMARY PATIENT HAS DONE WELL TODAY. PAIN FINALLY APPEARS CONTROLLED WITH ORAL PAIN MEDICATION. PATIENT WAS ABLE TO AMBULATE TO THE BATHROOM AND BACK WITH STAND-BY ASSIST USING THE WALKER. PATIENT HAS SLEPT A LOT TODAY. CURRENTLY SLEEPING NOW. NO COMPLAINTS AT THIS TIME.
[2020-08-07 20:00] VITALS: BP 115/63; PULSE 81; RESP 16; TEMP 36.7; O2SAT 100
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
[2020-08-07 23:52] VITALS: BP 118/71; PULSE 90; RESP 18; TEMP 36.6; O2SAT 96
[2020-08-08 03:11] LABS: Anion Gap 15.3 (5-19); Blood Urea Nitrogen 30 mg/dL (6-20); Calcium 8.7 mg/dL (8.5-10.5); Carbon Dioxide 25 mmol/L (22-29); Chloride 94 mmol/L (98-107); Glomerular Filtration Rate 120.4 mL/min (90-130); Glucose 105 mg/dL (65-115); Magnesium 1.7 mg/dL (1.7-2.3); Osmolality Calculated 277 mOsm/kg (285-295); Potassium 4.3 mmol/L (3.5-5.1); Sodium 130 mmol/L (136-145)
[2020-08-08 04:00] VITALS: BP 132/77; PULSE 87; RESP 18; TEMP 37; O2SAT 99
[2020-08-08] MEDS: enoxaparin 40 mg/0.4 mL Syringe SUBCUT (04:16)
[2020-08-08] MEDS: HYDROcodone-acetaminophen 5-325 mg Tablet PO ×3 (04:16→14:13)
[2020-08-08 07:18] VITALS: BP 134/70; PULSE 101; RESP 17; TEMP 36.8; O2SAT 98
[2020-08-08] MEDS: sennosides-docusate Tablet 1 TAB PO (09:08)
[2020-08-08] MEDS: aspirin 81 mg EC Tablet PO (09:08)
[2020-08-08] MEDS: CELEcoxib 200 mg Capsule PO (09:09)
[2020-08-08] MEDS: FUROsemide 10 mg/mL SDV 4mL 40 MG IVP (09:09)
[2020-08-08] MEDS: metoprolol succinate ER (24 HR) 25 mg Tablet 12.5 MG PO (09:09)
[2020-08-08] MEDS: lisinopril 5 mg Tablet PO (09:16)
--- NOTE | 2020-08-08 10:45 | PC.CHAP ---
Pastoral Care Encounter/Spiritual Assessment Type of Contact [] Declined fabrication engineer visit [] Patient/Family/Request visit [] Outpatient visit [] Follow-up visit [] Physician referral [] Code/Alert [x] Routine visit [] Staff referral [] Actively dying [] Patient sleeping [] Family support [] [] Out of room [] Palliative care [] [] Receiving care in room [] Pre-surgical visit [] Trauma [] Long length of stay [] ICU visit [] Other: Relational/Emotional Strength [x] Patient feels connected with others/family/visitors/staff [] Distress [] Loneliness/isolation [] Abandonment Spirituality of Patient [x] Person of Anne [] Attends Bahai of their Anne [x] Believes in Prayer [] Reads Bible or Protestant materials [] There are Spiritual issues to be addressed Nurse Head Interventions [x] Prayer [x] Active listening [] Non-anxious presence [] Spiritual/emotional support [] Crisis/trauma care [x] Spiritual counseling [] Bereavement support [] Provided bereavement packet [] Provided Bible/devotional materials [] Provided toy/stuffed animal, coloring book to patient or family member [] Provided Communion [] Anointing/[place] [] Salvation [x] Completed spiritual assessment [] Other: Impact on Illness or Injury [] Angry [] Fearful [] Anxious [] Often cries [] Exhaustion [] Unable to work [] Unable to attend jain [] Unable to walk/stand [] Unable to read [] Unable to drive [] Unable to eat/drink [] Unable to sleep [] Unable to be with family [] Patient intubated [] Other: Summary patient needs to go to rehab drugs n alcohol told him about [facility] Time spent with patient 20 min
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
[2020-08-08 11:12] VITALS: BP 113/74; PULSE 85; RESP 17; TEMP 36.6; O2SAT 98
--- NOTE | 2020-08-08 12:19 | PC.NURSE ---
Patient's leg was re-dressed. Cleansed wound wound with normal saline, applied xeroform to stitches and covered with fluffy gauze and cling wrap. Patient tolerated well.
--- NOTE | 2020-08-08 15:22 | PC.NURSE ---
Discharge instructions, appointments, and wound care was discussed with the patient. Patient verbalized understanding. Written discharge instructions were provided to the patient. A donated walker as well as meds delivered to bedside were taken with patient at time of discharge. Patient wheeled out to [facility] transport and assisted into the van. Patient's IV was taken out and wound dressing was changed in front of patient to assist in continuation of care by the patient after discharge.
[2020-08-08 15:26] VITALS: BP 113/74; PULSE 85; RESP 17; TEMP 36.6; O2SAT 98
== END 2020-08-08 15:00 | disposition home or self-care (01) | DRG 492 ==
LOC: ER 19:28 → MEDSURG 21:53 → CSU 07-27 08:34 → MEDSURG 07-27 08:37 → CSU 07-29 19:29 → MEDSURG 08-02 14:41
PROVIDERS: Hospitalist; Internal Medicine; Orthopaedic Surgery; Student in an Organized Health Care Education/Training Program; Admitting Provider Internal Medicine; Emergency Provider Emergency Medicine; Visit Provider Internal Medicine
PROC: 0QHH34Z Insertion of Internal Fixation Device into Left Tibia, Percutaneous Approach (ICD-10-PCS; principal; 2020-07-27 14:40)
PROC: 4A023N7 Measurement of Cardiac Sampling and Pressure, Left Heart, Percutaneous Approach (ICD-10-PCS; principal; 2020-08-01 11:30)
PROC: 0QSK04Z Reposition Left Fibula with Internal Fixation Device, Open Approach (ICD-10-PCS; CPT 27828; principal; 2020-08-06 11:15)
PROC: 0QSH04Z Reposition Left Tibia with Internal Fixation Device, Open Approach (ICD-10-PCS; CPT 20694; 2020-08-06 11:15)
DX: S82.142A Displaced bicondylar fracture of left tibia, initial encounter for closed fracture (principal); I50.21 Acute systolic (congestive) heart failure; I47.2 Ventricular tachycardia; I42.8 Other cardiomyopathies; S82.832A Other fracture of upper and lower end of left fibula, initial encounter for closed fracture; W19.XXXA Unspecified fall, initial encounter; Y93.55 Activity, bike riding; F17.210 Nicotine dependence, cigarettes, uncomplicated; F15.10 Other stimulant abuse, uncomplicated; Z59.0 Homelessness; I44.7 Left bundle-branch block, unspecified; Z82.49 Family history of ischemic heart disease and other diseases of the circulatory system; I11.0 Hypertensive heart disease with heart failure
CPT/HCPCS: 36415; 36416; 70450; 71045; 72125; 72131; 73560; 73590; 73700; 76000; 78452; 80048; 80053; 80061; 80074; 80306; 80307; 82962; 83036; 83735; 84100; 84484; 85014; 85018; 85025; 85610; 87806; 93005; 93017; 93306; 93452; 96365; 96372; 96374; 96375; 97110; 97116; 97161; 97165; 97168; 97530; 97535; 99285; A9500; C1713; C1769; C1887; C1894; J0171; J0690; J1100; J1170; J1644; J1650; J1940; J2060; J2250; J2270; J2370; J2405; J2704; J2785; J3010; J3490; J7030; J7799; Q9967

== ENCOUNTER 2020-08-09 13:34 | Emergency (ER) | payer SELFPAY ==
[2020-08-09 13:47] VITALS: BP 103/57; PULSE 100; RESP 16; TEMP 37; O2SAT 97; BMI 25.8
[2020-08-09 14:45] VITALS: BP 108/64; PULSE 94; RESP 18; O2SAT 97
--- NOTE | 2020-08-09 14:46 | ED_ITS ---
HPI - Recheck/Abnormal Lab/Rx General: Chief Complaint: Recheck/Abnormal Lab/Rx Stated Complaint: NEEDS DRESSING CHANGED Time Seen by Provider: 08/09/20 13:48 History of Present Illness: HPI narrative: Patient presents by ambulance for dressing change to left lower leg. He had surgery on Thursday for be Dr. Knutson and patient has not had dressing change because he does have primary care. MD complaint: wound re-check Review of Systems Narrative: Here for dressing change left leg lower Const: Denies: fever(s), chills or body aches Eyes: Denies: change in vision or blurry vision ENMT: Denies: throat pain or nasal congestion Card: Denies: chest pain or dyspnea on exertion Resp: Denies: dyspnea, productive cough or non-productive cough GI: Denies: abdominal pain, nausea or vomiting : Denies: difficulty urinating Musc: Denies: extremity pain Skin/Breast: Denies: rash Neuro: Denies: headache(s) Psych: Denies: anxiety or depression Edgar/Lymph: Denies: easy bruising PFSH ED PFSH: Medical History No pertinent past medical history Surgical History History of ankle surgery Family History Other No pertinent family history Social History Smoking and tobacco status: current every day smoker cigarettes Alcohol intake: never Physical Exam Const: COMMON NORMALS: no acute distress Psych: COMMON NORMALS: mental status grossly normal Skin: OTHER: Left lower extremity shows swelling below the knee. Not tender to touch. Does have some oozing of blood from the wound on the lateral aspect. Dressing was changed patient tolerated well. Dr. Knutson was contacted discussed the bleeding he said put a pressure dressing on and follow-up in office. As scheduled. Course Vital Signs: Vital signs: Vital Signs Temperature 98.6 F 08/09/20 13:47 Pulse Rate 94 08/09/20 14:45 Respiratory Rate 18 08/09/20 14:45 Blood Pressure 108/64 08/09/20 14:45 Pulse Oximetry 97 08/09/20 14:45 Discharge Plan Discharge Patient Disposition: Home Clinical Impression: Change of dressing Condition: Stable Prescriptions: No Action celecoxib 200 mg Capsule 200 mg PO Q12H Qty: 60 RF: 0 aspirin 81 mg Tablet,Delayed Release (Dr/Ec) 81 mg PO DAILY Qty: 30 RF: 0 nitroglycerin 0.4 mg Tablet, Sublingual 0.4 mg sublingual Q5M PRN (Reason: Chest Pain) Qty: 30 RF: 0 lisinopril 5 mg Tablet 5 mg PO DAILY Qty: 30 RF: 0 metoprolol succinate 25 mg Tablet Extended Release 24 Hr 12.5 mg PO DAILY Qty: 30 RF: 0 Lasix 40 mg tablet 40 mg PO QAM Qty: 30 RF: 0 Ultram 50 mg tablet 50 mg PO Q4H PRN (Reason: pain) Qty: 30 RF: 0 Discharge Orders: Discharge ED (Routine); Ordered 08/09/20 Ordered By: Donell Das Discharge Diet: Usual diet Discharge Activity: Resume usual activity Activity Restrictions/Additional Instructions: Established with primary care provider here in this area. See about getting dressing change on a regular basis. 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
== END 2020-08-09 14:49 | disposition home or self-care (01) ==
PROVIDERS: Emergency Provider Nurse Practitioner Family
DX: Z48.01 Encounter for change or removal of surgical wound dressing (principal); Z79.82 Long term (current) use of aspirin; F17.210 Nicotine dependence, cigarettes, uncomplicated
CPT/HCPCS: 99282

== ENCOUNTER 2020-08-11 | Emergency (ER) | payer SELFPAY ==
[2020-08-11] VITALS (8 sets, daily range): BP systolic 133–139; BP diastolic 72–79; PULSE 80–102; RESP 16–20; TEMP 37–37.3; O2SAT 98–100; BMI 26.5
--- NOTE | 2020-08-11 00:09 | ED_ITS ---
HPI - Extremity Problem General: Chief complaint: Extremity Injury, Lower Stated complaint: left leg pain post fx Time Seen by Provider: 08/11/20 00:04 History of Present Illness: HPI Narrative: 50-year-old male patient comes in today with uncontrolled pain to postop left lower extremity. Patient reports 3 days prior to today he had a open reduction internal fixation of the left proximal tibia. Patient reports that he had increased pain and discomfort to date and was unable to tolerate the pain. Patient was concerned there may be infection getting in the wound. Patient had been seen yesterday for wound dressing change in the emergency department. Patient appears in moderate pain. Patient does have a history of substance abuse and has been released to home with celecoxib and tramadol for his pain control post surgery. MD Complaint: extremity pain Location: left Quality: aching Review of Systems General: Reports: 10 or more systems reviewed and unremarkable except in HPI and below Musc: Reports: other (Uncontrolled pain to the left lower extremity.) [facility] ED PFSH: Medical History No pertinent past medical history Surgical History History of ankle surgery Family History Other No pertinent family history Social History Smoking and tobacco status: current every day smoker cigarettes Alcohol intake: never Physical Exam Const: COMMON NORMALS: no acute distress and patient oriented x3 GENERAL APPEARANCE: cooperative HENMT: COMMON NORMALS: normocephalic and Normal external nose present HEAD & SCALP: normal to inspection and normocephalic NOSE: Normal external nose present MOUTH: Normal oral and palatal mucosa present Eye: GENERAL EYE: appearance normal, both eyes and all related structures Neck/C-Spine: COMMON NORMALS: full ROM Chest: COMMONS NORMALS: normal inspection of the chest Resp: COMMON NORMALS: normal respiratory effort EFFORT & INSPECTION: Yes able to speak in complete sentences Cardio: COMMON NORMALS: regular rate and regular rhythm RATE: regular rate RHYTHM: regular rhythm GI: COMMON NORMALS: non-tender Back/Pelvis: COMMON NORMALS: thoracic and lumbar spine normal to inspection Extremity: NARRATIVE EXTREMITY EXAM: Ecchymosis and swelling noted to the left lower extremity. Sutures are intact. There is some mild sanguinous drainage to the wound site. Distal pulses are intact. Neuro: COMMON NORMALS: patient oriented x3 and moves all extremities Psych: COMMON NORMALS: mental status grossly normal and cooperative Skin: COMMON NORMALS: no rashes or lesions noted GENERAL SKIN EXAM: no rashes or lesions noted Course Vital Signs: Vital signs: Vital Signs Temperature 99.1 F 08/11/20 00:02 Pulse Rate 80 08/11/20 00:23 Respiratory Rate 16 08/11/20 01:59 Blood Pressure 139/79 08/11/20 00:05 Pulse Oximetry 98 08/11/20 00:22 MDM - Extremity (Nontraumatic) MDM Narrative: Medical decision making narrative: 50-year-old male patient comes in [facility] for uncontrolled pain to the left lower leg. Patient had had a open reduction internal fixation of a tibial fracture of the left lower leg. Patient was worried due to the uncontrolled pain. On exam patient had some mild swelling distal pulses were intact, wound was weeping but it was serous sanguinous drainage. Prompt capillary refill was noted distally. X-ray of the leg showed well placement of the bone and alignment. Differential diagnosis includes uncontrolled pain, wound infection, malingering. Laboratory values were unremarkable. I believe the patient probably does have some uncontrolled pain status post surgery. Patient was medicated in the ER with 2 Percocet tens with better control of his pain. Patient was discharged home with hydrocodone 7-1/2 to use 1 every 6 hours for breakthrough pain to continue with his tramadol and celecoxib. Patient was recommended to elevate the leg is much as possible and to follow-up with Dr. Knutson's office on Thursday for further evaluation and treatment. Case management note was left to assist with follow-up appointment. Lab Data: Labs: Lab Results 08/11/20 08/11/20 08/11/20 Range/Units 00:51 00:51 01:29 WBC Cancelled 8.7 Corrected WBC Cancelled RBC Cancelled 3.38 L Hgb Cancelled 10.9 L Hct Cancelled 31.7 L MCV Cancelled 93.8 MCH Cancelled 32.2 MCHC Cancelled 34.4 RDW Cancelled 12.9 Plt Count Cancelled 220 MPV Cancelled 11.6 H Gran % Cancelled Neut % (Auto) Cancelled 54.0 Lymph % (Auto) Cancelled 22.4 [place] % (Auto) Cancelled 15.3 Eos % (Auto) Cancelled 6.0 Baso % (Auto) Cancelled 1.5 Neut # (Auto) Cancelled 4.69 Lymph # (Auto) Cancelled 2.0 [place] # (Auto) Cancelled 1.3 H Eos # (Auto) Cancelled 0.5 Baso # (Auto) Cancelled 0.1 Absolute Gran (aut o) Cancelled Nucleated RBC % (a uto) Cancelled 0 Nucleated RBCs # Cancelled 0.0 Sodium 134 L (136-145) mmol/L Potassium 4.1 (3.5-5.1) mmol/L Chloride 101 (98-107) mmol/L Carbon Dioxide 23 (22-29) mmol/L Anion Gap 14.1 (5-19) BUN 19 (6-20) mg/dL Creatinine 0.6 L (0.7-1.2) mg/dL GFR Calculation 143.8 H (90-130) mL/min Glucose 151 H (65-115) mg/dL Calculated Osmolal ity 283 L (285-295) mOsm/k g Calcium 8.1 L (8.5-10.5) mg/dL Discharge Plan Discharge Patient Disposition: Home Clinical Impression: Uncontrolled pain Fracture tibia/fibula Qualifiers: Encounter type: subsequent encounter Fracture type: closed Laterality: left Fracture healing: with routine healing Qualified Code(s): S82.202D - Unspecified fracture of shaft of left tibia, subsequent encounter for closed fracture with routine healing Condition: Stable Prescriptions: New hydrocodone-acetaminophen 7.5-325 mg tablet 1 tab PO Q6H PRN (Reason: pain (scale score 7-10)) Qty: 14 RF: 0 No Action celecoxib 200 mg Capsule 200 mg PO Q12H Qty: 60 RF: 0 aspirin 81 mg Tablet,Delayed Release (Dr/Ec) 81 mg PO DAILY Qty: 30 RF: 0 nitroglycerin 0.4 mg Tablet, Sublingual 0.4 mg sublingual Q5M PRN (Reason: Chest Pain) Qty: 30 RF: 0 lisinopril 5 mg Tablet 5 mg PO DAILY Qty: 30 RF: 0 metoprolol succinate 25 mg Tablet Extended Release 24 Hr 12.5 mg PO DAILY Qty: 30 RF: 0 Lasix 40 mg tablet 40 mg PO QAM Qty: 30 RF: 0 Ultram 50 mg tablet 50 mg PO Q4H PRN (Reason: pain) Qty: 30 RF: 0 Discharge Orders: Discharge ED (Routine); Ordered 08/11/20 Ordered By: Fredy Ovalle Discharge Diet: Usual diet Discharge Activity: Limit activity as instructed Patient Instructions: Leg Fracture (ED), Opioid Safety Activity Restrictions/Additional Instructions: Home and rest. Elevate leg is much as possible. Use Celebrex and tramadol to control pain. Also use acetaminophen. Use hydrocodone for breakthrough pain. Drink plenty of water. Try to keep the leg up as much as possible to help with the swelling. Follow-up with Dr. Knutson's office Thursday for further instruction and follow-up appointment. 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
--- NOTE | 2020-08-11 00:17 | XRR_ITS ---
PROCEDURE INFORMATION: Exam: XR Left Tibia and Fibula Exam date and time: 08/11/2020 12:17 AM Age: 50 years old Clinical indication: Pain; Lower leg; Prior surgery; Surgery date: <1 month; Surgery type: Left tib fib FX; Additional info: Increase pain TECHNIQUE: Imaging protocol: XR Left tibia and fibula. Views: 2 views. COMPARISON: CR XR tibia fibula LT 2V [id number] 07/26/2020 7:31 PM FINDINGS: Bones/joints: Stable comminuted left proximal fibular fracture. Intact buttress plate and screw fixation of proximal tibial fracture. Soft tissues: Normal. Other findings: Small amount of gas present in the pretibial soft tissues and anterior to the femur. XR/XR tibia fibula LT 2V [id number] IMPRESSION: 1. Small amounts of gas are present in the pretibial soft tissues and anterior to the femoral shaft, suspicious for infection. 2. Stable comminuted left proximal fibular fracture. 3. Intact buttress plate and screw fixation of proximal tibial fracture.
[2020-08-11] MEDS: oxyCODONE-APAP 10-325 mg Tablet 1 TAB PO ×2 (00:22→01:59)
[2020-08-11 01:16] LABS: Anion Gap 14.1 (5-19); Blood Urea Nitrogen 19 mg/dL (6-20); Calcium 8.1 mg/dL (8.5-10.5); Carbon Dioxide 23 mmol/L (22-29); Chloride 101 mmol/L (98-107); Glomerular Filtration Rate 143.8 mL/min (90-130); Glucose 151 mg/dL (65-115); Osmolality Calculated 283 mOsm/kg (285-295); Potassium 4.1 mmol/L (3.5-5.1); Sodium 134 mmol/L (136-145)
[2020-08-11 01:49] LABS: Basophils # 0.1 10^3/uL (0.0-0.1); Basophils % 1.5 %; Eosinophils # 0.5 10^3/uL (0.0-0.8); Hematocrit 31.7 % (42.0-52.0); Hemoglobin 10.9 g/dL (11.7-16.6); Lymphocytes % 22.4 %; Mean Corpuscular HGB Conc 34.4 g/dL (30.0-36.0); Mean Corpuscular Hemoglobin 32.2 pg (28.0-34.0); Mean Corpuscular Volume 93.8 fL (80-94); Mean Platelet Volume 11.6 fL (7.4-10.4); Monocytes # 1.3 10^3/uL (0.2-0.9); Monocytes % 15.3 %; Neutrophils # 4.69 10^3/uL (1.8-7.7); Nucleated Red Blood Cells % 0 %; Platelet Count 220 10^3/cmm (130-400); Red Blood Count 3.38 10^6/uL (4.1-5.3); Red Cell Distribution Width 12.9 % (12.1-15.1); White Blood Count 8.7 10^3/uL (4.0-10.0)
[2020-08-11 02:11] LABS: Slide Review Slide Review Perform
[2020-08-11] MEDS: cephALEXin 500 mg Capsule PO (03:17)
--- NOTE | 2020-08-13 08:05 | DCPLANNER ---
manager ethics had message to schedule a follow up appointment scheduled for patient with ortho. manager ethics called the ortho clinic, spoke with Tereista, gave clinic patients information to clinic. manager ethics was told that patients information would be printed and reviewed. Clinic will call patient with appointment information.
--- NOTE | 2020-08-31 07:24 | DCPLANNER ---
Patient had a follow up appointment scheduled for 08.14.[address] Knutson at [facility] - patient did attend appointment.
== END 2020-08-11 03:27 | disposition home or self-care (01) ==
PROVIDERS: Emergency Provider Nurse Practitioner Family
DX: S82.455A Nondisplaced comminuted fracture of shaft of left fibula, initial encounter for closed fracture (principal); S82.102A Unspecified fracture of upper end of left tibia, initial encounter for closed fracture; R52 Pain, unspecified; Z79.82 Long term (current) use of aspirin; F17.210 Nicotine dependence, cigarettes, uncomplicated; X58.XXXA Exposure to other specified factors, initial encounter
CPT/HCPCS: 36415; 73590; 80048; 85025; 99283; E0114

== ENCOUNTER 2020-08-12 08:34 | Emergency (ER) | payer SELFPAY ==
[2020-08-12 08:37] VITALS: BP 120/76; PULSE 91; RESP 18; O2SAT 97; BMI 25.8
--- NOTE | 2020-08-12 08:56 | XRR_ITS ---
PROCEDURE INFORMATION: Exam: XR Left Tibia and Fibula Exam date and time: 08/12/2020 8:56 AM Age: 50 years old Clinical indication: Injury or trauma; Fall; Blunt trauma; Lower leg; Left; Prior surgery; Additional info: Recent surgery, fall TECHNIQUE: Imaging protocol: XR Left tibia and fibula. Views: 2 views. COMPARISON: CR (LOW EXM, ) 08/11/2020 12:32 AM FINDINGS: Bones/joints: Malleable surgical plate and screws on the right and left stabilizing a complex proximal tibial metaphyseal fracture with extension to the tibial plateaus and interspinous region. Stable. Comminuted proximal fibular fracture. Soft tissues: Normal. XR/XR tibia fibula LT 2V [id number] IMPRESSION: 1. Malleable surgical plate and screws on the right and left stabilizing a complex proximal tibial metaphyseal fracture with extension to the tibial plateaus and interspinous region. Stable. 2. Comminuted proximal fibular fracture.
--- NOTE | 2020-08-12 09:02 | W.ED.FALL ---
HPI - Fall General: Chief Complaint: Fall Stated Complaint: GROUND FALL NO APPARENT INJURY Time Seen by Provider: 08/12/20 08:42 History of Present Illness: HPI Narrative: 50-year-old male who comes from ambulance he is at a homeless care home after he had a twisting type injury with his crutches and ended up putting some weight on a recently fractured postop tib-fib on the left. He denies any more pain he is just concerned if he caused any injuries. He did fall backwards onto his crutches and just feels he has some soft tissue soreness but denies any lumbar spine pain or pelvic type pain does not feel anything is broken. He does change his dressings regularly. Patient also does not have any current pain medication as the prescription is still at [facility] and needs to be picked up for hydrocodone. Review of Systems Narrative: General: denies fatigue, fever or chills HEENT: denies ear pain, denies nasal congestion, denies vision changes, denies sore throat Neck: denies masses or pain Resp: denies cough, denies shortness of breath, denies pleuritic pain Cardio: denies chest pain, denies edema GI: denies abdominal pain, denies N/V/D, denies black/tarry or bloody stools : denies hematuria, denies dysuria Neuro: denies headache, denies dizziness, denies motor or sensory changes Musculoskeletal: See HPI Skin: denies rashes Psych: denies SI or HI Endocrine: denies thyroid symptoms, denies lymphadenopathy all over ROS reviewed and patient denies PFSH ED PFSH: Medical History No pertinent past medical history Surgical History History of ankle surgery Family History Other No pertinent family history Social History Smoking and tobacco status: current every day smoker cigarettes Alcohol intake: never Physical Exam Narrative: EXAM NARRATIVE: General: no distress, HEENT: normal eyes, normal mouth, normal external nose Neck: FROM Resp: normal effort, no tachypnea, no stridor Cardio: normal rate, no edema GI: soft, flat, non distended : deferred Neuro: normal coordination, normal speech, no gross motor or sensory deficits Musculo: normal ROM, no gross deformities he has no lumbar spine pain he has no back abrasions he easily rolls on his side. His left leg had a dressing in place he had some bloody drainage on his bandages mild oozing he has mild erythema around his bilateral incisions but there is no diffuse cellulitis there is no purulent drainage his calf is soft he has flexion extension intact of his distal ankle and foot Skin: no rash, no gross cellulitis mild erythema could be suture related Psych: normal behavior normal mood and effect Course Vital Signs: Vital signs: Vital Signs Pulse Rate 91 08/12/20 08:37 Respiratory Rate 18 08/12/20 08:37 Blood Pressure 120/76 08/12/20 08:37 Pulse Oximetry 97 08/12/20 08:37 MDM - Fall MDM Narrative: Medical decision making narrative: We will check some x-rays. Patient was requesting something for pain says his prescriptions at [facility]. Reviewed his x-rays he did have a previous proximal fibula fracture it was hard to tell if it is any more displaced than previously be as the other films are not taken on the same angles. I spoke with Dr. Knutson from orthopedics and he is well aware of this proximal fibula fracture and said even if it was a little more displaced he was a good doing thing different with that his nonweightbearing should heal this. I do not see any gross infection I did review his previous ER visits and it talked about possible gas in his soft tissues I discussed this with Dr. Knutson as well when he says is probably from his post op they would expect some air. However I discussed with patient his cephalexin and he is not aware that he was prescribed this despite his discharge paperwork saying he received 2 prescriptions so I will rewrite it and go to increase it to 4 times daily patient thinks he supposed to see Dr. Knutson tomorrow if not Dr. Knutson said he would like to see him this week he is informed again nonweightbearing. Discharge Plan Discharge Patient Disposition: Home Clinical Impression: Change of dressing Fracture tibia/fibula Qualifiers: Encounter type: subsequent encounter Fracture type: closed Laterality: left Fracture healing: with routine healing Qualified Code(s): S82.202D - Unspecified fracture of shaft of left tibia, subsequent encounter for closed fracture with routine healing Condition: Stable Prescriptions: New cephalexin 500 mg capsule 500 mg PO QID 10 Days Qty: 40 RF: 0 No Action hydrocodone-acetaminophen 7.5-325 mg tablet 1 tab PO Q6H PRN (Reason: pain (scale score 7-10)) Qty: 14 RF: 0 cephalexin 500 mg capsule 500 mg PO TID 10 Days Qty: 30 RF: 0 celecoxib 200 mg Capsule 200 mg PO Q12H Qty: 60 RF: 0 aspirin 81 mg Tablet,Delayed Release (Dr/Ec) 81 mg PO DAILY Qty: 30 RF: 0 nitroglycerin 0.4 mg Tablet, Sublingual 0.4 mg sublingual Q5M PRN (Reason: Chest Pain) Qty: 30 RF: 0 lisinopril 5 mg Tablet 5 mg PO DAILY Qty: 30 RF: 0 metoprolol succinate 25 mg Tablet Extended Release 24 Hr 12.5 mg PO DAILY Qty: 30 RF: 0 Lasix 40 mg tablet 40 mg PO QAM Qty: 30 RF: 0 Ultram 50 mg tablet 50 mg PO Q4H PRN (Reason: pain) Qty: 30 RF: 0 Discharge Orders: Discharge ED (Routine); Ordered 08/12/20 Ordered By: Odette Garcia Referrals: Brandon Knutson, [Physician] - (You need to see him in the clinic this week if you do not already have an appointment make sure you call tomorrow to be seen) Discharge Diet: Usual diet Discharge Activity: Use walker/crutches as instructed Patient Instructions: Opioid Safety Activity Restrictions/Additional Instructions: You need to get her antibiotics filled and get all 4 doses in 2-day and take them regularly for possible early infection starting You are to be nonweightbearing as instructed previously by orthopedics You need to see orthopedics this week if you do not already have an appointment tomorrow you need to call Dr. Knutson's office he wants to see you early this week Return if worsening of symptoms redness drainage Continue dressing changes as instructed Thank you for choosing [facility] for your healthcare needs today. Please realize this is an emergency room and that we are providing you with a medical screening exam and this may not be complete and all inclusive of all the testing and or work up that you may need to determine your ailment or severity of your illness. It is very important that you follow up as instructed or that you return to the Emergency Department should you have concerns or if your condition changes or worsens in any way. Coding Level of Care Code ED Tool Specialist for [facility]
[2020-08-12] MEDS: HYDROcodone-acetaminophen 10-325 mg Tablet 1 TAB PO (09:21)
[2020-08-12 10:32] VITALS: BP 147/67; PULSE 82; RESP 17; TEMP 36.6; O2SAT 97
--- NOTE | 2020-08-12 10:32 | PC.NURSE ---
pt wound cleaned and redressed
== END 2020-08-12 10:34 | disposition home or self-care (01) ==
PROVIDERS: Emergency Provider Emergency Medicine
DX: S82.102A Unspecified fracture of upper end of left tibia, initial encounter for closed fracture (principal); S82.455A Nondisplaced comminuted fracture of shaft of left fibula, initial encounter for closed fracture; Z79.82 Long term (current) use of aspirin; F17.210 Nicotine dependence, cigarettes, uncomplicated; W19.XXXA Unspecified fall, initial encounter
CPT/HCPCS: 73590; 99283

== ENCOUNTER 2020-08-13 09:04 | Emergency (ER) | payer SELFPAY ==
[2020-08-13 09:05] VITALS: BP 137/84; PULSE 84; RESP 15; TEMP 36.7; O2SAT 100; BMI 27.2
--- NOTE | 2020-08-13 09:18 | ED_ITS ---
HPI - Extremity Problem General: Chief complaint: Extremity Problem,Nontraumatic Stated complaint: NEEDS CRUTCHES Time Seen by Provider: 08/13/20 09:06 History of Present Illness: HPI Narrative: 50-year-old male presents emergency room with complaints of swelling in the leg. Reviewed his old notes he had a previous tibia fracture for which he underwent surgery has been here multiple times this past week in the past week has not gotten his prescriptions he returns today saying again he has not gotten a prescription or other pain medications he has not been using crutches either he did just recently come from wound care. He has not reinjured the leg per his report. He does have an appointment with Dr. Knutson today for follow-up in addition to the fact that he was at wound care earlier. MD Complaint: extremity pain and extremity swelling Onset (ago): minute(s) Pain Consistency: constant Location: left Quality: aching Radiation: none Relieving factors: elevation Exacerbating factors: weight bearing and palpation Associated symptoms: Deny arthralgias, chest pain, fever(s), myalgias, rash or short of breath Review of Systems 2 Const: Denies: fever(s) ENMT: Denies: throat pain, ear or mastoid pain, nasal discharge or nasal congestion Card: Denies: chest pain Resp: Denies: dyspnea, productive cough or non-productive cough GI: Denies: abdominal pain, nausea, vomiting, hematemesis, coffee ground emesis, diarrhea, constipation, bloating, hematochezia or melena : Denies: flank pain, dysuria, urinary frequency or urinary urgency Skin/Breast: Denies: rash PFSH ED PFSH: Medical History No pertinent past medical history Surgical History History of ankle surgery Family History Other No pertinent family history Social History Smoking and tobacco status: current every day smoker cigarettes Alcohol intake: never Physical Exam Const: COMMON NORMALS: no acute distress GENERAL APPEARANCE: cooperative and comfortable ORIENTATION/CONSCIOUSNESS: Yes awake, Yes oriented to person, Yes oriented to place and Yes oriented to time HENMT: COMMON NORMALS: normocephalic, atraumatic and hearing grossly normal bilaterally HEAD & SCALP: normocephalic and atraumatic Neck/C-Spine: COMMON NORMALS: no JVD Resp: COMMON NORMALS: normal respiratory effort, No retractions, No use of accessory muscles and clear to auscultation bilaterally AUSCULTATION: clear to auscultation bilaterally Cardio: COMMON NORMALS: no JVD, regular rate, regular rhythm and No murmurs present (Cardio) RATE: regular rate RHYTHM: regular rhythm GI: COMMON NORMALS: Soft to palpation and No hepatosplenomegaly present AUSCULTATION: Yes normoactive bowel sounds PALPATION: Yes Soft to palpation, No Tenderness to palpation present (GI), No Guarding due to palpation present (GI) and Yes No hepatosplenomegaly present Extremity: NARRATIVE EXTREMITY EXAM: Left leg swelling and bruising there is some serosanguineous wound drainage from the wounds stitches in place no dehisce nce of the wounds. Neuro: SENSORIUM/ORIENTATION: Yes oriented to person, Yes oriented to place and Yes oriented to time Course Vital Signs: Vital signs: Vital Signs Temperature 98.0 F 08/13/20 09:05 Pulse Rate 82 08/13/20 10:36 Respiratory Rate 15 08/13/20 09:05 Blood Pressure 155/88 08/13/20 10:36 Pulse Oximetry 95 08/13/20 10:36 MDM - Extremity (Nontraumatic) MDM Narrative: Medical decision making narrative: Patient given crutches encouraged to refill medications previously prescribed follow-up with Ortho he was at Ortho clinic today but evidently there was a misunderstanding Dr. Zenia harry as not there to see him he has an appointment tomorrow. Advised patient to be completely nonweightbearing on that left leg. Lab Data: Labs: Lab Results 08/13/20 Range/Units 09:39 WBC 10.2 H (4.0-10.0) 10^3/ uL RBC 3.70 L (4.1-5.3) 10^6/u L Hgb 11.8 (11.7-16.6) g/dL Hct 34.8 L (42.0-52.0) % MCV 94.1 H (80-94) fL MCH 31.9 (28.0-34.0) pg MCHC 33.9 (30.0-36.0) g/dL RDW 13.2 (12.1-15.1) % Plt Count 315 (130-400) 10^3/c mm MPV 10.8 H (7.4-10.4) fL Neut % (Auto) 65.4 % Lymph % (Auto) 15.6 % [place] % (Auto) 11.1 % Eos % (Auto) 5.5 % Baso % (Auto) 1.4 % Neut # (Auto) 6.69 (1.8-7.7) 10^3/u L Lymph # (Auto) 1.6 (0.8-4.8) 10^3/u L [place] # (Auto) 1.1 H (0.2-0.9) 10^3/u L Eos # (Auto) 0.6 (0.0-0.8) 10^3/u L Baso # (Auto) 0.1 (0.0-0.1) 10^3/u L Nucleated RBC % (a uto) 0 % Nucleated RBCs # 0.0 /100WBC Discharge Plan Discharge Patient Disposition: Home Clinical Impression: Fracture tibia/fibula Condition: Stable Prescriptions: No Action hydrocodone-acetaminophen 7.5-325 mg tablet 1 tab PO Q6H PRN (Reason: pain (scale score 7-10)) Qty: 14 RF: 0 cephalexin 500 mg capsule 500 mg PO TID 10 Days Qty: 30 RF: 0 celecoxib 200 mg Capsule 200 mg PO Q12H Qty: 60 RF: 0 aspirin 81 mg Tablet,Delayed Release (Dr/Ec) 81 mg PO DAILY Qty: 30 RF: 0 nitroglycerin 0.4 mg Tablet, Sublingual 0.4 mg sublingual Q5M PRN (Reason: Chest Pain) Qty: 30 RF: 0 lisinopril 5 mg Tablet 5 mg PO DAILY Qty: 30 RF: 0 metoprolol succinate 25 mg Tablet Extended Release 24 Hr 12.5 mg PO DAILY Qty: 30 RF: 0 Lasix 40 mg tablet 40 mg PO QAM Qty: 30 RF: 0 Ultram 50 mg tablet 50 mg PO Q4H PRN (Reason: pain) Qty: 30 RF: 0 cephalexin 500 mg capsule 500 mg PO QID 10 Days Qty: 40 RF: 0 Discharge Orders: Discharge ED (Routine); Ordered 08/13/20 Ordered By: Steve Nielson Patient Instructions: Opioid Safety Activity Restrictions/Additional Instructions: With your previously prescribed pain medications and antibiotics. Recommend you are nonweightbearing on this leg use crutches crutches will be dispensed to you today at the time of discharge. Coding Level of Care Code ED Manager Group for [facility]
--- NOTE | 2020-08-13 09:20 | XRR_ITS ---
PROCEDURE INFORMATION: Exam: XR Left Tibia and Fibula Exam date and time: 08/13/2020 9:20 AM Age: 50 years old Clinical indication: Pain; Lower leg; Left; Prior surgery TECHNIQUE: Imaging protocol: XR Left tibia and fibula. Views: 2 views. COMPARISON: CR (LOW EXM, ) 08/12/2020 9:00 AM FINDINGS: Bones/joints: Stable ORIF of proximal tibial fracture. Stable displaced comminuted fracture of the proximal fibula. Residual pin tracks in the mid tibial diaphysis. Soft tissues: Unremarkable soft tissues. Other findings: When correlating with the previous study, no significant interval changes are present. XR/XR tibia fibula LT 2V [id number] IMPRESSION: Stable postoperative appearance of the left lower leg, not significantly changed from 08/12/2020 .
[2020-08-13 09:49] LABS: Basophils # 0.1 10^3/uL (0.0-0.1); Basophils % 1.4 %; Eosinophils # 0.6 10^3/uL (0.0-0.8); Eosinophils % 5.5 %; Hematocrit 34.8 % (42.0-52.0); Hemoglobin 11.8 g/dL (11.7-16.6); Lymphocytes # 1.6 10^3/uL (0.8-4.8); Lymphocytes % 15.6 %; Mean Corpuscular HGB Conc 33.9 g/dL (30.0-36.0); Mean Corpuscular Hemoglobin 31.9 pg (28.0-34.0); Mean Corpuscular Volume 94.1 fL (80-94); Mean Platelet Volume 10.8 fL (7.4-10.4); Monocytes # 1.1 10^3/uL (0.2-0.9); Monocytes % 11.1 %; Neutrophils # 6.69 10^3/uL (1.8-7.7); Neutrophils % 65.4 %; Nucleated Red Blood Cells % 0 %; Platelet Count 315 10^3/cmm (130-400); Red Cell Distribution Width 13.2 % (12.1-15.1); White Blood Count 10.2 10^3/uL (4.0-10.0)
[2020-08-13] MEDS: HYDROcodone-acetaminophen 5-325 mg Tablet 1 TAB PO (10:10)
[2020-08-13 10:36] VITALS: BP 155/88; PULSE 82; O2SAT 95
== END 2020-08-13 10:37 | disposition home or self-care (01) ==
PROVIDERS: Emergency Provider Family Medicine
DX: S82.102A Unspecified fracture of upper end of left tibia, initial encounter for closed fracture (principal); S82.452A Displaced comminuted fracture of shaft of left fibula, initial encounter for closed fracture; X58.XXXA Exposure to other specified factors, initial encounter; F17.210 Nicotine dependence, cigarettes, uncomplicated
CPT/HCPCS: 73590; 85025; 99283; E0114

== ENCOUNTER → 2020-08-14 08:58 | Outpatient (BNVA) | payer SELFPAY | PROVIDERS: Visit Provider Orthopaedic Surgery | DX: S82.252A Displaced comminuted fracture of shaft of left tibia, initial encounter for closed fracture (principal); S82.452A Displaced comminuted fracture of shaft of left fibula, initial encounter for closed fracture; X58.XXXA Exposure to other specified factors, initial encounter | CPT/HCPCS: 73560 ==

== ENCOUNTER 2020-08-16 23:42 | Emergency (ER) | payer SELFPAY ==
[2020-08-16 23:57] VITALS: BP 148/96; PULSE 104; RESP 18; TEMP 36.7; O2SAT 100; BMI 25.8
--- NOTE | 2020-08-17 01:33 | XRR_ITS ---
PROCEDURE INFORMATION: Exam: XR Left Tibia and Fibula Exam date and time: 08/17/2020 1:33 AM Age: 50 years old Clinical indication: Pain; Swelling, leg or foot; Lower leg; Left; Prior surgery; Surgery date: <1 month; Patient HX: Patient had tibia fixation approximately one week ago. Stitching has come loose at incision site on medial side and is swollen with redness. TECHNIQUE: Imaging protocol: XR Left tibia and fibula. Views: 2 views. COMPARISON: CR XR tibia fibula LT 2V [id number] 08/13/2020 9:21 AM FINDINGS: Bones/joints: Previous comminuted fractures of the proximal left tibia and fibular are again demonstrated. Alignment of the fractures not significantly changed. Extensive fixation hardware involving the proximal tibia not significantly changed in position or appearance. Soft tissues: There appears to be some soft tissue gas along the medial proximal tibial shaft and metaphyseal region. This was not present previously. Findings could represent evidence for soft tissue infection. Please correlate clinically. XR/XR tibia fibula LT 2V [id number] IMPRESSION: 1. Stable position of proximal left tibia and fibular fractures, and fixation hardware. 2. New/increasing soft tissue gas along the medial proximal tibial shaft and metaphyseal region. Findings could represent evidence for soft tissue infection. Please correlate clinically.
--- NOTE | 2020-08-17 02:05 | ED_ITS ---
HPI - Extremity Problem General: Chief complaint: Extremity Problem,Nontraumatic Stated complaint: popped stitches Time Seen by Provider: 08/16/20 23:46 Source: patient Limitations: no limitations History of Present Illness: HPI Narrative: 50-year-old male who has a history of a proximal tibia fracture earlier this month was just released from the hospital a week ago after having surgery. He states that he changed his dressing today and noticed he had a stitch that popped out. He denies any fever or drainage. He has been seen here couple times since being discharged. He has an appointment with orthopedist tomorrow. He states he has pain still he rates a 5 out of 10. Associated symptoms: Deny chest pain, fever(s) or rash Review of Systems Const: Denies: fever(s), chills, body aches or change in appetite Eyes: Denies: blurry vision or eye discomfort ENMT: Denies: throat pain or dental pain Card: Denies: chest pain Resp: Denies: dyspnea GI: Denies: abdominal pain, nausea, vomiting or diarrhea : Denies: dysuria Musc: Denies: neck pain or back pain Skin/Breast: Denies: rash Neuro: Denies: headache(s) Psych: Denies: depression Edgar/Lymph: Denies: easy bruising All/Imm: Denies: urticaria PFSH ED PFSH: Medical History No pertinent past medical history Surgical History History of ankle surgery Family History Other No pertinent family history Social History Smoking and tobacco status: current every day smoker (.75 pack) cigarettes Alcohol intake: never Physical Exam Const: COMMON NORMALS: no acute distress, patient oriented x3 and healthy appearing HENMT: COMMON NORMALS: normocephalic and atraumatic HEAD & SCALP: normocephalic and atraumatic Eye: COMMON NORMALS: Equal, round and reactive pupils present and EOMs intact bilaterally PUPIL: Yes Equal, round and reactive pupils present Neck/C-Spine: COMMON NORMALS: full ROM and supple Chest: COMMONS NORMALS: normal inspection of the chest and normal palpation of entire chest wall Resp: COMMON NORMALS: normal respiratory effort, No retractions, No use of ac cessory muscles and clear to auscultation bilaterally AUSCULTATION: clear to auscultation bilaterally Cardio: COMMON NORMALS: regular rate, regular rhythm and No murmurs present (Cardio) RATE: regular rate RHYTHM: regular rhythm GI: COMMON NORMALS: Normal to inspection, nondistended, normoactive bowel sounds present, Soft to palpation, non-tender and no masses PALPATION: Yes Soft to palpation Extremity: COMMON NORMALS: full ROM NARRATIVE EXTREMITY EXAM: Patient does have wound dehiscence with no purulence noted. Very slight erythema Neuro: COMMON NORMALS: patient oriented x3, moves all extremities and no focal motor deficits Psych: COMMON NORMALS: mental status grossly normal, Normal thought process present and cooperative THOUGHT PROCESS: Normal thought process present Skin: COMMON NORMALS: no rashes or lesions noted and no wounds GENERAL SKIN EXAM: no rashes or lesions noted Course Vital Signs: Vital signs: Vital Signs Temperature 98.1 F 08/16/20 23:57 Pulse Rate 104 H 08/16/20 23:57 Respiratory Rate 18 08/16/20 23:57 Blood Pressure 126/84 08/17/20 02:06 Pulse Oximetry 100 08/16/20 23:57 MDM - Extremity (Nontraumatic) MDM Narrative: Medical decision making narrative: Patient presents here with wound dehiscence. I spoke to Claudia informed her of the dehiscence. He is afebrile here and does not have a white count and is appointment in her office tomorrow for wound dressing change. Will give him a dose of Bactrim here and prescribe him Bactrim. He is to follow-up as scheduled today now and return if worsening. Lab Data: Labs: Lab Results 08/17/20 Range/Units 02:31 WBC 10.8 H (4.0-10.0) 10^3/ uL RBC 4.16 (4.1-5.3) 10^6/u L Hgb 13.1 (11.7-16.6) g/dL Hct 39.9 L (42.0-52.0) % MCV 95.9 H (80-94) fL MCH 31.5 (28.0-34.0) pg MCHC 32.8 (30.0-36.0) g/dL RDW 13.5 (12.1-15.1) % Plt Count 360 (130-400) 10^3/c mm MPV 10.9 H (7.4-10.4) fL Neut % (Auto) 64.0 % Lymph % (Auto) 21.2 % [place] % (Auto) 9.8 % Eos % (Auto) 3.1 % Baso % (Auto) 1.3 % Neut # (Auto) 6.92 (1.8-7.7) 10^3/u L Lymph # (Auto) 2.3 (0.8-4.8) 10^3/u L [place] # (Auto) 1.1 H (0.2-0.9) 10^3/u L Eos # (Auto) 0.3 (0.0-0.8) 10^3/u L Baso # (Auto) 0.1 (0.0-0.1) 10^3/u L Nucleated RBC % (a uto) 0 % Nucleated RBCs # 0.0 /100WBC Imaging Data^: xr tib fib: Attestation: I personally reviewed and interpreted this imaging study as follows: My impression: no acute findings Discharge Plan Discharge Patient Disposition: Home Clinical Impression: Surgical wound dehiscence Qualifiers: Encounter type: initial encounter Qualified Code(s): T81.31XA - Disruption of external operation (surgical) wound, not elsewhere classified, initial encounter Condition: Stable Prescriptions: New Bactrim DS 800-160 mg tablet 1 tab PO BID 10 Days Qty: 20 RF: 0 No Action (DME) WHEEL CHAIR WITH LEG ELEVATORS See Rx Instructions .ROUTE .MEDSUPPLY Qty: 1 RF: 0 hydrocodone-acetaminophen 7.5-325 mg tablet 1 tab PO Q6H PRN (Reason: pain (scale score 7-10)) 10 Days Qty: 40 RF: 0 cephalexin 500 mg capsule 500 mg PO TID 10 Days Qty: 30 RF: 0 celecoxib 200 mg Capsule 200 mg PO Q12H Qty: 60 RF: 0 aspirin 81 mg Tablet,Delayed Release (Dr/Ec) 81 mg PO DAILY Qty: 30 RF: 0 nitroglycerin 0.4 mg Tablet, Sublingual 0.4 mg sublingual Q5M PRN (Reason: Chest Pain) Qty: 30 RF: 0 lisinopril 5 mg Tablet 5 mg PO DAILY Qty: 30 RF: 0 metoprolol succinate 25 mg Tablet Extended Release 24 Hr 12.5 mg PO DAILY Qty: 30 RF: 0 Lasix 40 mg tablet 40 mg PO QAM Qty: 30 RF: 0 Ultram 50 mg tablet 50 mg PO Q4H PRN (Reason: pain) Qty: 30 RF: 0 cephalexin 500 mg capsule 500 mg PO QID 10 Days Qty: 40 RF: 0 Discharge Orders: Discharge ED (Routine); Ordered 08/17/20 Ordered By: Tunde Rogel Referrals: Brandon Knutson DO [Physician] - 1-3 days Jacquelyn Brown DO [Primary Care Provider] - None Discharge Diet: Advance as tolerated Discharge Activity: Resume usual activity Patient Instructions: Wound Dehiscence (ED) Coding Level of Care Code ED Assistant To The Dean for Chg Fwd Exam Comprehensive
[2020-08-17 02:06] VITALS: BP 126/84
[2020-08-17] MEDS: HYDROcodone-acetaminophen 7.5-325 mg Tablet 1 TAB PO (02:19)
[2020-08-17 02:46] LABS: Basophils # 0.1 10^3/uL (0.0-0.1); Basophils % 1.3 %; Eosinophils # 0.3 10^3/uL (0.0-0.8); Eosinophils % 3.1 %; Hematocrit 39.9 % (42.0-52.0); Hemoglobin 13.1 g/dL (11.7-16.6); Lymphocytes # 2.3 10^3/uL (0.8-4.8); Lymphocytes % 21.2 %; Mean Corpuscular HGB Conc 32.8 g/dL (30.0-36.0); Mean Corpuscular Hemoglobin 31.5 pg (28.0-34.0); Mean Corpuscular Volume 95.9 fL (80-94); Mean Platelet Volume 10.9 fL (7.4-10.4); Monocytes # 1.1 10^3/uL (0.2-0.9); Monocytes % 9.8 %; Neutrophils # 6.92 10^3/uL (1.8-7.7); Nucleated Red Blood Cells % 0 %; Platelet Count 360 10^3/cmm (130-400); Red Blood Count 4.16 10^6/uL (4.1-5.3); Red Cell Distribution Width 13.5 % (12.1-15.1); White Blood Count 10.8 10^3/uL (4.0-10.0)
[2020-08-17] MEDS: sulfamethoxazole-trimeth DS 160-800 mg Tablet 1 TAB PO (03:04)
[2020-08-17 03:18] VITALS: BP 126/60; PULSE 98; RESP 17; O2SAT 99
== END 2020-08-17 03:18 | disposition home or self-care (01) ==
PROVIDERS: Emergency Provider Emergency Medicine; PCP Family Medicine
DX: T81.31XA Disruption of external operation (surgical) wound, not elsewhere classified, initial encounter (principal); Z79.82 Long term (current) use of aspirin; F17.210 Nicotine dependence, cigarettes, uncomplicated
CPT/HCPCS: 36415; 73590; 85025; 99283

== ENCOUNTER 2020-08-17 12:23 | Inpatient (IN) | payer SELFPAY ==
[2020-08-17 12:52] VITALS: BMI 24.3
--- NOTE | 2020-08-17 13:13 | PM.HP ---
Providers/Chief Complaint Admitting Physician: Bryant Yen MD Primary Care Provider: Jacquelyn Brown DO Chief Complaint: wound dehiscence History of Present Illness 50 year old male patient of Dr. Knutson'leida presents to the orthopedic clinic via wheelchair for routine nurse visit. Patient stated there that he has been having increased drainage from the surgical incision, particularly medially. He reports that a stitch popped out yesterday . He was instructed by orthopedic clinic to be evaluated at the ED. patient was discharged from the ED after adding Bactrim, to his existing Cephalexin, as as per the ED physician there was no gross infection noted. He came back again to the orthopedic clinic today the patient's dressing was saturated with bloody drainage.Upon inspection, his hardware was visible in the wound. Cultures were obtained and the wounds was dressed.He was sent for direct admission. X-ray tibia-fibula : Stable position of proximal left tibia and fibular fractures, and fixation hardware. New/increasing soft tissue gas along the medial proximal tibial shaft and metaphyseal region. Findings could represent evidence for soft tissue infection. Review of Systems Const: Denies: fever(s), chills, change in appetite or diaphoresis Card: Denies: palpitations Resp: Denies: dyspnea, productive cough, wheezing or pain on inspiration GI: Denies: abdominal pain, nausea, vomiting, diarrhea or constipation Neuro: Denies: headache(s) or confusion Medications/Allergies Home Medications Medication Instructions Recorded Confirmed Last Taken Type aspirin 81 mg PO DAILY #30 tab 08/08/20 08/17/20 Unknown Rx celecoxib 200 mg PO Q12H #60 cap 08/08/20 08/17/20 Unknown Rx furosemide [Lasix] 40 mg PO QAM #30 tab 08/08/20 08/17/20 Unknown Rx lisinopril 5 mg PO DAILY #30 tab 08/08/20 08/17/20 Unknown Rx metoprolol succinate 12.5 mg PO DAILY #30 tab 08/08/20 08/17/20 Unknown Rx nitroglycerin 0.4 mg SUBLINGUAL Q5M PRN #30 tab 08/08/20 08/17/20 Unknown Rx tramadol [Ultram] 50 mg PO Q4H PRN #30 tab 08/08/20 08/17/20 Unknown Rx cephalexin 500 mg PO TID 10 Days #30 cap 08/11/20 08/17/20 Unknown Rx cephalexin 500 mg PO QID 10 Days #40 cap 08/12/20 08/17/20 Unknown Rx WHEEL CHAIR WITH LEG ELEVATORS #1 ea 08/14/20 08/17/20 Unknown Rx hydrocodone 7.5 mg-acetaminophen 1 tab PO Q6H PRN 10 Days #40 tab 08/14/20 08/17/20 Unknown Rx 325 mg tablet sulfamethoxazole-trimethoprim 1 tab PO BID 10 Days #20 tab 08/17/20 08/17/20 Unknown Rx [Bactrim DS] Allergies Allergy/AdvReac Type Severity Reaction Status Date / Time No Known Allergies Allergy Verified 08/14/20 09:09 PFSH Acute PFSH: Medical History No pertinent past medical history Surgical History History of ankle surgery Family History Other No pertinent family history Social History Alcohol intake: never Vitals/I&O/Wt Weight last 48 hrs Weight 77.111 kg Physical Exam HENMT: COMMON NORMALS: normocephalic, atraumatic, hearing grossly normal bilaterally and external ears normal HEAD & SCALP: normocephalic and atraumatic EXTERNAL EAR: Yes external ears normal Chest: CHEST: Yes Symmetrical chest wall rise Resp: COMMON NORMALS: normal respiratory effort and clear to auscultation bilaterally EFFORT & INSPECTION: Yes symmetric chest movement AUSCULTATION: clear to auscultation bilaterally Cardio: COMMON NORMALS: regular rate, regular rhythm, S1 normal heart sound present, S2 normal heart sound present, No gallops present (Cardio), No murmurs present (Cardio), No rub (Cardio) and Peripheral pulses 2+ throughout RATE: regular rate RHYTHM: regular rhythm HEART SOUNDS: S1 normal heart sound present and S2 normal heart sound present PERIPHERAL PULSES: Peripheral pulses 2+ throughout GI: COMMON NORMALS: Normal to inspection, nondistended, normoactive bowel sounds present, Soft to palpation, non-tender, No hepatosplenomegaly present and no masses AUSCULTATION: Yes normoactive bowel sounds PALPATION: Yes Soft to palpation and Yes No hepatosplenomegaly present RECTAL EXAM: Yes deferred Extremity: COMMON NORMALS: no clubbing, cyanosis or edema and no pedal edema OTHER: LLE open wound, with slight dark reddish discharge. Neuro: COMMON NORMALS: patient oriented x3 Data : 08/17/20 17:21 A&P Assessment and plan (1) Surgical wound dehiscence: Patient needs to be in hospital for management of exposed lower extremity wound. Continue vancomycin and Zosyn. CT scan of the left lower extremity. Dr. Knutson will see the patient on Thursday.For possible intervention. Status: Acute Qualifiers: Encounter type: initial encounter Qualified Code(s): T81.31XA - Disruption of external operation (surgical) wound, not elsewhere classified, initial encounter (2) Fracture tibia/fibula: Status: Acute Qualifiers: Encounter type: subsequent encounter Fracture healing: with delayed healing Fracture type: closed Laterality: left Qualified Code(s): S82.202G - Unspecified fracture of shaft of left tibia, subsequent encounter for closed fracture with delayed healing; S82.402G - Unspecified fracture of shaft of left fibula, subsequent encounter for closed fracture with delayed healing (3) LV dysfunction: Nonischemic heart failure with reduced ejection fraction. Currently compensated. Status: Acute Attestations Medical Necessity Statement*: Patient needs to be in hospital for management of surgical wound dehiscence. And the need of IV antibiotic anticipated length of stay greater than 2 midnights. Coding Level of Care Code Acute Induction Machine Operator for [facility] Diagnoses Surgical wound dehiscence T81.31XA Encounter type: initial encounter Fracture tibia/fibula S82.202G; S82.402G Encounter type: subsequent encounter Fracture healing: with delayed healing Fracture type: closed Laterality: left LV dysfunction I51.9
--- NOTE | 2020-08-17 13:39 | PM.MISC ---
Miscellaneous Note Purpose of Documentation: Referral for hospital admission Note: Please see outpatient clinic note for documentation of encounter today.
[2020-08-17 15:54] VITALS: BP 122/75; PULSE 87; RESP 16; TEMP 36.7; O2SAT 99
[2020-08-17 16:03] VITALS: RESP 18
[2020-08-17] MEDS: sodium chloride 0.9% 1,000 ML 50 ML IV (16:03)
[2020-08-17] MEDS: oxyCODONE-APAP 10-325 mg Tablet 1 TAB PO ×2 (16:03→20:41)
[2020-08-17] MEDS: enoxaparin 40 mg/0.4 mL Syringe SUBCUT (16:03)
[2020-08-17 17:50] LABS: Blood Urea Nitrogen 25 mg/dL (6-20); Calcium 8.6 mg/dL (8.5-10.5); Carbon Dioxide 26 mmol/L (22-29); Chloride 101 mmol/L (98-107); Creatinine Clr Calc Pharmacy 119.2237; Glomerular Filtration Rate 103.2 mL/min (90-130); Glucose 99 mg/dL (65-115); Osmolality Calculated 286 mOsm/kg (285-295); Sodium 136 mmol/L (136-145)
[2020-08-17] MEDS: vancomycin 1,000 MG in sodium chloride 0.9% 250 ML 250 MG IV (18:10)
[2020-08-17] MEDS: piperacillin-tazobactam 3.375 GM in sodium chloride 0.9% (plus) 50 ML IV (19:14)
[2020-08-17 20:00] VITALS: BP 130/73; PULSE 79; RESP 17; TEMP 36.9; O2SAT 97
[2020-08-17 20:41] VITALS: RESP 16
[2020-08-17 23:48] VITALS: BP 120/72; PULSE 80; RESP 16; TEMP 36.4; O2SAT 97
[2020-08-18] VITALS (11 sets, daily range): BP systolic 119–145; BP diastolic 73–80; PULSE 73–81; RESP 16–20; TEMP 36.3–36.6; O2SAT 97–99
[2020-08-18] MEDS: oxyCODONE-APAP 10-325 mg Tablet 1 TAB PO ×5 (01:22→20:55)
[2020-08-18] MEDS: vancomycin 1,000 MG in sodium chloride 0.9% 250 ML 250 MG IV ×3 (02:06→18:52)
[2020-08-18] MEDS: piperacillin-tazobactam 3.375 GM in sodium chloride 0.9% (plus) 50 ML IV ×3 (03:11→20:00)
--- NOTE | 2020-08-18 06:02 | PC.NURSE ---
SHIFT SUMMARY Has had a good night. Pleasant and talkative. Asks for snacks and drinks. Medicated x3 for pain with oxycodone. Dressing to left leg was clean and dry. Dressing changed in evening per pt request for itching. Incision line with open area at upper simental otherwise sutures intact. Small amount of reddish brown drainage noted. Incision was cleaned with NS and redressed with adaptic/abd/kerlex/raghav. Receiving antibiotic therapy
[2020-08-18 06:18] LABS: Basophils # 0.1 10^3/uL (0.0-0.1); Eosinophils # 0.5 10^3/uL (0.0-0.8); Eosinophils % 6.5 %; Hematocrit 38.2 % (42.0-52.0); Hemoglobin 12.1 g/dL (11.7-16.6); Lymphocytes # 2.3 10^3/uL (0.8-4.8); Lymphocytes % 32.7 %; Mean Corpuscular HGB Conc 31.7 g/dL (30.0-36.0); Mean Corpuscular Hemoglobin 31.8 pg (28.0-34.0); Mean Corpuscular Volume 100.3 fL (80-94); Mean Platelet Volume 10.9 fL (7.4-10.4); Monocytes # 0.8 10^3/uL (0.2-0.9); Monocytes % 11.7 %; Neutrophils # 3.24 10^3/uL (1.8-7.7); Neutrophils % 46.5 %; Nucleated Red Blood Cells % 0 %; Platelet Count 278 10^3/cmm (130-400); Red Blood Count 3.81 10^6/uL (4.1-5.3); Red Cell Distribution Width 13.6 % (12.1-15.1)
[2020-08-18 06:56] LABS: Blood Urea Nitrogen 23 mg/dL (6-20); Calcium 8.8 mg/dL (8.5-10.5); Carbon Dioxide 21 mmol/L (22-29); Chloride 104 mmol/L (98-107); Creatinine Clr Calc Pharmacy 119.2237; Glomerular Filtration Rate 103.2 mL/min (90-130); Glucose 96 mg/dL (65-115); Osmolality Calculated 282 mOsm/kg (285-295); Sodium 134 mmol/L (136-145)
[2020-08-18 07:02] LABS: Procalcitonin 0.17 ng/mL (0-0.5)
[2020-08-18] MEDS: sodium chloride 0.9% 1,000 ML 50 ML IV (12:00)
--- NOTE | 2020-08-18 12:27 | CTR_ITS ---
PROCEDURE INFORMATION: Exam: CT Left Lower Extremity Without Contrast; Lower Leg Exam date and time: 08/18/2020 12:27 PM Age: 50 years old Clinical indication: Prior surgery; Surgery date: <1 month; Surgery type: Orif; Patient HX: C/O lle pain and drainage from medial incision site TECHNIQUE: Imaging protocol: CT of the Left lower extremity without contrast was performed. Exam focused on the lower leg. Radiation optimization: All CT scans at this facility use at least one of these dose optimization techniques: automated exposure control; mA and/or kV adjustment per patient size (includes targeted exams where dose is matched to clinical indication); or iterative reconstruction. COMPARISON: CR (LOW EXM, ) 08/17/2020 1:29 AM RADIATION DOSE METRICS: Total DLP (mGy-cm): 1013.49 FINDINGS: Bones/joints: There are comminuted fractures through the proximal fibula with free fracture fragments similar to the prior radiographs. There is been ORIF of the comminuted proximal tibial fractures also stable from the prior radiographs. Soft tissue defect extends from the medial tibial plateau to the medial skin surface. There is adjacent fluid stranding. A somewhat ill-defined peripherally enhancing fluid collection extends along the anterior aspect of the tibia measuring 9.4 by 0.7 x 1.3 cm in the craniocaudad/AP/transverse dimensions, concerning for an abscess formation. Soft tissues: See Bones/joints finding. CT/CT lower leg LT wo con* 16444 IMPRESSION: An ill-defined peripherally enhancing fluid collection extends along the anterior aspect of the tibia measuring 9.4 x 0.7 x 1.3 cm in the craniocaudad/AP/transverse dimensions, concerning for an abscess formation. Radiation Dose CTDIVOL = (mGy): DLP = 1013.49 (mGy-cm)
--- NOTE | 2020-08-18 15:40 | P.PN_ITS ---
Subjective Subjective: Interval history: Patient is seen in his room. He does appear comfortable. He states he would like his dressing changed today if possible. Medications: Reviewed: Yes Vitals/I&O/Wt Last Vital Signs Temp 97.9 F 08/18/20 11:30 Pulse 73 08/18/20 11:30 Resp 18 08/18/20 11:30 BP 126/77 08/18/20 11:30 Pulse Ox 99 08/18/20 11:30 08/18/20 08/18/20 08/18/20 06:59 14:59 22:59 Intake Total 300 / 1020 2187.5 / 2187.5 Output Total 900 / 1550 2225 / 2225 Balance -600 / -530 -37.5 / -37.5 Weight last 48 hrs Weight 170 lb Physical Exam Const: COMMON NORMALS: no acute distress, average body habitus, patient oriented x3 and alert GENERAL APPEARANCE: cooperative and comfortable ORIENTATION/CONSCIOUSNESS: Yes awake HENMT: COMMON NORMALS: normocephalic and atraumatic HEAD & SCALP: normocephalic and atraumatic Eye: GENERAL EYE: appearance normal, both eyes and all related structures Chest: COMMONS NORMALS: normal inspection of the chest Resp: COMMON NORMALS: normal respiratory effort EFFORT & INSPECTION: Yes able to speak in complete sentences and Yes symmetric chest movement Extremity: LEFT LOWER EXTREMITY: Yes lower leg (Dressing is in place and dry.) Left lower leg: Yes neurovascular exam (Intact.) Neuro: COMMON NORMALS: patient oriented x3 SENSORIUM/ORIENTATION: Yes alert Psych: COMMON NORMALS: mental status grossly normal APPEARANCE: Yes grossly normal ATTITUDE: Yes calm and Yes engaged ATTENTION/CONCENTRATION: Yes a ttention grossly intact Skin: COMMON NORMALS: no rashes or lesions noted GENERAL SKIN EXAM: no rashes or lesions noted Data : 08/18/20 05:45 08/18/20 05:45 A&P Assessment and plan (1) Surgical wound dehiscence: Patient was seen and evaluated in the office yesterday. He is awaiting Dr. Knutson's return for appropriate irrigation and debridement after 2 to 3 days of IV antibiotics. I am hopeful that the IV antibiotic treatment will cause decreased swelling in his soft tissues and hopefully, he will be able to be primarily closed. Status: Acute Qualifiers: Encounter type: initial encounter Qualified Code(s): T81.31XA - Disruption of external operation (surgical) wound, not elsewhere classified, initial encounter (2) Fracture tibia/fibula: Status: Acute Qualifiers: Encounter type: subsequent encounter Fracture healing: with delayed healing Fracture type: closed Laterality: left Qualified Code(s): S82.202G - Unspecified fracture of shaft of left tibia, subsequent encounter for closed fracture with delayed healing; S82.402G - Unspecified fracture of shaft of left fibula, subsequent encounter for closed fracture with delayed healing Attestations Medical Necessity Statement*: IV antibiotic treatment Coding Level of Care Code Acute Director Of Diversity And Inclusion for [facility] Fwd Diagnoses Surgical wound dehiscence T81.31XA Encounter type: initial encounter Fracture tibia/fibula S82.202G; S82.402G Encounter type: subsequent encounter Fracture healing: with delayed healing Fracture type: closed Laterality: left
[2020-08-18] MEDS: enoxaparin 40 mg/0.4 mL Syringe SUBCUT (15:51)
[2020-08-18 18:36] LABS: Vancomycin Trough 11.4 ug/mL (10-15)
--- NOTE | 2020-08-18 19:23 | P.PN_ITS ---
Subjective Subjective: Interval history: Patient was seen and examined in his room, resting comfortably. No acute event overnight. Medications: Reviewed: Yes Vitals/I&O/Wt Last Vital Signs Temp 97.3 F L 08/18/20 16:00 Pulse 76 08/18/20 16:00 Resp 18 08/18/20 16:00 BP 132/78 08/18/20 16:00 Pulse Ox 98 08/18/20 16:00 08/18/20 08/18/20 08/18/20 06:59 14:59 22:59 Intake Total 300 / 1020 2187.5 / 2187.5 480 / 2667.5 Output Total 900 / 1550 2225 / 2225 950 / 3175 Balance -600 / -530 -37.5 / -37.5 -470 / -507.5 Weight last 48 hrs Weight 77.111 kg Physical Exam Const: COMMON NORMALS: patient oriented x3 HENMT: COMMON NORMALS: normocephalic, atraumatic, hearing grossly normal bilaterally and external ears normal HEAD & SCALP: normocephalic and atraumatic EXTERNAL EAR: Yes external ears normal Chest: CHEST: Yes Symmetrical chest wall rise Resp: COMMON NORMALS: normal respiratory effort and clear to auscultation bilaterally EFFORT & INSPECTION: Yes symmetric chest movement AUSC ULTATION: clear to auscultation bilaterally Cardio: COMMON NORMALS: regular rate, regular rhythm, S1 normal heart sound present, S2 normal heart sound present, No gallops present (Cardio), No murmurs present (Cardio), No rub (Cardio) and Peripheral pulses 2+ throughout RATE: regular rate RHYTHM: regular rhythm HEART SOUNDS: S1 normal heart sound present and S2 normal heart sound present PERIPHERAL PULSES: Peripheral pulses 2+ throughout GI: COMMON NORMALS: Normal to inspection, nondistended, normoactive bowel sounds present, Soft to palpation, non-tender, No hepatosplenomegaly present and no masses AUSCULTATION: Yes normoactive bowel sounds PALPATION: Yes Soft t o palpation and Yes No hepatosplenomegaly present RECTAL EXAM: Yes deferred Extremity: COMMON NORMALS: no clubbing, cyanosis or edema and no pedal edema OTHER: LLE open wound, with slight dark reddish discharge. Neuro: COMMON NORMALS: patient oriented x3 Data : 08/18/20 05:45 08/18/20 05:45 A&P Assessment and plan (1) Surgical wound dehiscence: Patient needs to be in hospital for management of exposed lower extremity wound. Continue vancomycin and Zosyn. CT scan of the left lower extremity. Dr. Knutson will see the patient on Thursday.For possible irrigation and debridement Status: Acute Qualifiers: Encounter type: initial encounter Qualified Code(s): T81.31XA - Disruption of external operation (surgical) wound, not elsewhere classified, initial encounter (2) Fracture tibia/fibula: Status: Acute Qualifiers: Encounter type: subsequent encounter Fracture healing: with delayed healing Fracture type: closed Laterality: left Qualified Code(s): S82.202G - Unspecified fracture of shaft of left tibia, subsequent encounter for closed fracture with delayed healing; S82.402G - Unspecified fracture of shaft of left fibula, subsequent encounter for closed fracture with delayed healing (3) LV dysfunction: Nonischemic heart failure with reduced ejection fraction. Currently compensated. Status: Acute Attestations Medical Necessity Statement*: Patient needs to be in hospital for I.V Abxs as well as possible irrigation and debridement. Coding Level of Care Code Acute Enforcement Manager for [facility] Fwd Diagnoses Surgical wound dehiscence T81.31XA Encounter type: initial encounter Fracture tibia/fibula S82.202G; S82.402G Encounter type: subsequent encounter Fracture healing: with delayed healing Fracture type: closed Laterality: left LV dysfunction I51.9
[2020-08-19] VITALS (10 sets, daily range): BP systolic 136–150; BP diastolic 66–84; PULSE 74–93; RESP 16–18; TEMP 36.4–37.1; O2SAT 97–99
[2020-08-19] MEDS: vancomycin 1,000 MG in sodium chloride 0.9% 250 ML 250 MG IV ×3 (01:04→22:43)
[2020-08-19] MEDS: oxyCODONE-APAP 10-325 mg Tablet 1 TAB PO ×5 (01:04→20:08)
[2020-08-19] MEDS: piperacillin-tazobactam 3.375 GM in sodium chloride 0.9% (plus) 50 ML IV ×3 (04:57→20:10)
[2020-08-19 06:04] LABS: Basophils # 0.1 10^3/uL (0.0-0.1); Basophils % 1.9 %; Eosinophils # 0.5 10^3/uL (0.0-0.8); Hematocrit 38.1 % (42.0-52.0); Hemoglobin 12.2 g/dL (11.7-16.6); Lymphocytes # 1.6 10^3/uL (0.8-4.8); Lymphocytes % 27.1 %; Mean Corpuscular Hemoglobin 31.6 pg (28.0-34.0); Mean Corpuscular Volume 98.7 fL (80-94); Mean Platelet Volume 11.3 fL (7.4-10.4); Monocytes # 0.8 10^3/uL (0.2-0.9); Monocytes % 13.7 %; Neutrophils # 2.81 10^3/uL (1.8-7.7); Neutrophils % 48.8 %; Nucleated Red Blood Cells % 0 %; Platelet Count 239 10^3/cmm (130-400); Red Blood Count 3.86 10^6/uL (4.1-5.3); Red Cell Distribution Width 13.4 % (12.1-15.1); White Blood Count 5.8 10^3/uL (4.0-10.0)
[2020-08-19 06:53] LABS: Anion Gap 15.4 (5-19); Blood Urea Nitrogen 20 mg/dL (6-20); Calcium 8.3 mg/dL (8.5-10.5); Carbon Dioxide 23 mmol/L (22-29); Chloride 103 mmol/L (98-107); Glomerular Filtration Rate 120.4 mL/min (90-130); Glucose 101 mg/dL (65-115); Osmolality Calculated 287 mOsm/kg (285-295); Potassium 4.4 mmol/L (3.5-5.1); Sodium 137 mmol/L (136-145)
[2020-08-19] MEDS: sodium chloride 0.9% 1,000 ML 50 ML IV (07:54)
[2020-08-19] MEDS: acetaminophen 325 mg Tablet 650 MG PO (07:57)
--- NOTE | 2020-08-19 14:25 | PC.CHAP ---
Pastoral Care Encounter/Spiritual Assessment Type of Contact [] Declined gas derrick operator visit [] Patient/Family/Request visit [] Outpatient visit [] Follow-up visit [] Physician referral [] Code/Alert [XX] Routine visit [] Staff referral [] Actively dying [] Patient sleeping [] Family support [] [] Out of room [] Palliative care [] [] Receiving care in room [] Pre-surgical visit [] Trauma [] Long length of stay [] ICU visit [] Other: Relational/Emotional Strength [] Patient feels connected with others/family/visitors/staff [XX] Distress [] Loneliness/isolation [] Abandonment Spirituality of Patient [] Person of Anne [] Attends Quaker of their Anne [] Believes in Prayer [] Reads Bible or Sabianism materials [] There are Spiritual issues to be addressed Ticket Worker Interventions [] Prayer [] Active listening [] Non-anxious presence [] Spiritual/emotional support [] Crisis/trauma care [] Spiritual counseling [] Bereavement support [] Provided bereavement packet [] Provided Bible/devotional materials [] Provided toy/stuffed animal, coloring book to patient or family member [] Provided Communion [] Anointing/[place] [] Salvation [] Completed spiritual assessment [XX] Other: PT asked for a visit another time Impact on Illness or Injury [] Angry [XX] Fearful [] Anxious [] Often cries [] Exhaustion [] Unable to work [] Unable to attend sikhism [] Unable to walk/stand [] Unable to read [] Unable to drive [] Unable to eat/drink [] Unable to sleep [] Unable to be with family [] Patient intubated [] Other: Summary: Pt was awake but uncomfortable and preferred gas derrick operator visit at another time. When gas derrick operator agreed and said that he would be in gas derrick operator's prayers, pt stated, I want to keep my leg. Ticket Worker listed pt on follow-up sheet for another gas derrick operator to attempt visit with pt. Time spent with patient: 5 mins
--- NOTE | 2020-08-19 15:01 | PM.PN ---
Subjective Subjective: Interval history: Patient was seen and examined this morning, resting comfortably. No acute event overnight. Medications: Reviewed: Yes Vitals/I&O/Wt Last Vital Signs Temp 97.6 F 08/19/20 12:00 Pulse 74 08/19/20 12:00 Resp 16 08/19/20 14:26 BP 149/78 08/19/20 12:00 Pulse Ox 98 08/19/20 12:00 08/19/20 08/19/20 08/19/20 06:59 14:59 22:59 Intake Total 300 / 3337.5 1405 / 1405 Output Total 1800 / 5575 2125 / 2125 Balance -1500 / -2237.5 -720 / -720 Physical Exam Const: COMMON NORMALS: patient oriented x3 HENMT: COMMON NORMALS: normocephalic, atraumatic, hearing grossly normal bilaterally and external ears normal HEAD & SCALP: normocephalic and atraumatic EXTERNAL EAR: Yes external ears normal Chest: CHEST: Yes Symmetrical chest wall rise Resp: COMMON NORMALS: normal respiratory effort and clear to auscultation bilaterally EFFORT & INSPECTION: Yes symmetric chest movement AUSCULTATION: clear to auscultation bilaterally Cardio: COMMON NORMALS: regular rate, regular rhythm, S1 normal heart sound present, S2 normal heart sound present, No gallops present (Cardio), No murmurs present (Cardio), No rub (Cardio) and Peripheral pulses 2+ throughout RATE: regular rate RHYTHM: regular rhythm HEART SOUNDS: S1 normal heart sound present and S2 normal heart sound present PERIPHERAL PULSES: Peripheral pulses 2+ throughout GI: COMMON NORMALS: Normal to inspection, nondistended, normoactive bowel sounds present, Soft to palpation, non-tender, No hepatosplenomegaly present and no masses AUSCULTATION: Yes normoactive bowel sounds PALPATION: Yes Soft to palpation and Yes No hepatosplenomegaly present RECTAL EXAM: Yes deferred Extremity: COMMON NORMALS: no clubbing, cyanosis or edema and no pedal edema OTHER: LLE open wound, with slight dark reddish discharge. Neuro: COMMON NORMALS: patient oriented x3 Data : 08/19/20 04:53 08/19/20 04:53 A&P Assessment and plan (1) Surgical wound dehiscence: Patient needs to be in hospital for management of exposed lower extremity wound. CT scan of the left lower extremity. ill-defined peripherally enhancing fluid collection extends along the anterior aspect of the tibia measuring 9.4 x 0.7 x 1.3 cm. Continue vancomycin and Zosyn. Dr. Knutson will see the patient on Thursday.For possible irrigation and debridement. Status: Acute Qualifiers: Encounter type: initial encounter Qualified Code(s): T81.31XA - Disruption of external operation (surgical) wound, not elsewhere classified, initial encounter (2) Fracture tibia/fibula: Status: Acute Qualifiers: Encounter type: subsequent encounter Fracture healing: with delayed healing Fracture type: closed Laterality: left Qualified Code(s): S82.202G - Unspecified fracture of shaft of left tibia, subsequent encounter for closed fracture with delayed healing; S82.402G - Unspecified fracture of shaft of left fibula, subsequent encounter for closed fracture with delayed healing (3) LV dysfunction: Nonischemic heart failure with reduced ejection fraction. Currently compensated. Status: Acute Attestations Medical Necessity Statement*: Patient needs to be in hospital for I.V Abxs as well as possible irrigation and debridement. Coding Level of Care Code Acute Account Executive for [facility] Fwd Diagnoses Surgical wound dehiscence T81.31XA Encounter type: initial encounter Fracture tibia/fibula S82.202G; S82.402G Encounter type: subsequent encounter Fracture healing: with delayed healing Fracture type: closed Laterality: left LV dysfunction I51.9
[2020-08-19] MEDS: enoxaparin 40 mg/0.4 mL Syringe SUBCUT (16:11)
--- NOTE | 2020-08-19 18:36 | PC.NURSE ---
Lab Lab called and said we needed a [facility] Covid send out. tank builder supervisor charge nurse said one was already sent thursday but said did not. On orders or collections on my end it doesnt not show one to collect. So I did get one and sent down to lab but there is nowhere click to collect.
--- NOTE | 2020-08-19 23:32 | PC.NURSE ---
Nurse provided dressing change to left leg. Old dressing removed, wound gently cleansed with NS and patted dry, Adaptic dressing applied and covered by ABD pad and wrapped with Kerllix, then wrapped with raghav wrap. Pt tolerated dressing change with no complaints of discomfort.
[2020-08-20] VITALS (24 sets, daily range): BP systolic 130–171; BP diastolic 66–115; PULSE 67–95; RESP 12–20; TEMP 35.9–37; O2SAT 96–100
[2020-08-20] MEDS: diphenhydrAMINE 25 mg Capsule PO (00:28)
[2020-08-20] MEDS: oxyCODONE-APAP 10-325 mg Tablet 1 TAB PO ×5 (01:15→21:32)
[2020-08-20] MEDS: piperacillin-tazobactam 3.375 GM in sodium chloride 0.9% (plus) 50 ML IV ×2 (03:35→21:23)
--- NOTE | 2020-08-20 05:07 | PC.NURSE ---
Nurse changed left leg dressing. Old dressing removed, wound cleansed with NS and patted dry, adaptic dressing applied to wound, wound covered with ABD pad and wrapped with kerlix, then wrapped with Aftab wrap. Pt denied any discomfort during dressing change.
[2020-08-20] MEDS: sodium chloride 0.9% 1,000 ML 50 ML IV (05:48)
[2020-08-20 06:12] LABS: Basophils # 0.1 10^3/uL (0.0-0.1); Basophils % 1.6 %; Eosinophils # 0.5 10^3/uL (0.0-0.8); Eosinophils % 7.2 %; Hematocrit 38.1 % (42.0-52.0); Hemoglobin 12.3 g/dL (11.7-16.6); Lymphocytes # 1.7 10^3/uL (0.8-4.8); Lymphocytes % 27.7 %; Mean Corpuscular HGB Conc 32.3 g/dL (30.0-36.0); Mean Corpuscular Hemoglobin 31.1 pg (28.0-34.0); Mean Corpuscular Volume 96.5 fL (80-94); Mean Platelet Volume 10.9 fL (7.4-10.4); Monocytes # 0.9 10^3/uL (0.2-0.9); Monocytes % 13.9 %; Neutrophils # 3.09 10^3/uL (1.8-7.7); Neutrophils % 49.1 %; Nucleated Red Blood Cells % 0 %; Platelet Count 258 10^3/cmm (130-400); Red Blood Count 3.95 10^6/uL (4.1-5.3); Red Cell Distribution Width 13.2 % (12.1-15.1); White Blood Count 6.3 10^3/uL (4.0-10.0)
[2020-08-20] MEDS: vancomycin 1,000 MG in sodium chloride 0.9% 250 ML 250 MG IV ×2 (06:26→14:16)
[2020-08-20 06:33] LABS: Anion Gap 13.4 (5-19); Blood Urea Nitrogen 21 mg/dL (6-20); Calcium 8.9 mg/dL (8.5-10.5); Carbon Dioxide 23 mmol/L (22-29); Chloride 102 mmol/L (98-107); Creatinine Clr Calc Pharmacy 119.2237; Glomerular Filtration Rate 103.2 mL/min (90-130); Glucose 101 mg/dL (65-115); Osmolality Calculated 281 mOsm/kg (285-295); Potassium 4.4 mmol/L (3.5-5.1); Sodium 134 mmol/L (136-145)
--- NOTE | 2020-08-20 09:00 | PC.NURSE ---
Patient being taken to surgery.
[2020-08-20] MEDS: fentaNYL 50 mcg/mL INJ 2mL IVP (09:51)
--- NOTE | 2020-08-20 10:06 | ANES.PREANE2 ---
Pre-Anesthetic Assessment Pre-Anesthetic Assessment: Height/Weight: Height 1.78 m Weight 77.111 kg Temp Pulse Resp BP Pulse Ox 97.8 F 73 18 133/81 98 08/20/20 07:36 08/20/20 07:36 08/20/20 07:36 08/20/20 07:36 08/20/20 07:36 Preop Diagnosis: Bicondylar tibial plateau fracture with wound dehiscence Proposed Procedure: Operation Date: 08/20/20 15:00 Proposed Procedures p Debridement Lower Extremity(Left) - Brandon Knutson, DO Was Beta Flavio taken within 24 hours: N/A Was Clonidine taken within 24 hours: N/A Social: Social History: Tobacco and No alcohol Exam: Pre-Anes Outpt Exam: alert, oriented x 3, clear to auscultation bilaterally and regular rate & rhythm Airway: Submandibular: WNL Cervical ROM: WNL MP: 2 Additional comments: Poor dentition Pulmonary: Pulmonary: COPD CV/HEM: CV/HEM: CAD and CHF Musc/skel: Comments: Chronic pain/opioid, polysubstance abuse Anesthetic Plan: ASA status: 3 Anesthesia: General Risk of > 500 ml blood loss (7ml/kg in children): No Meds/Allergies Current Medications: Current Medications Generic Name Dose Route Start Last Admin Trade Name Freq PRN Reason Stop Dose Admin Acetaminophen 650 mg 08/17/20 14:24 08/19/20 07:57 Acetaminophen 32 5 Mg Tablet PO 650 mg Q6H PRN Administration Mild/Mod Pain Or Temp >/= 101 Enoxaparin Sodium 40 mg 08/17/20 15:30 08/19/20 16:11 Enoxaparin 40 Mg /0.4 Ml Syringe SUBCUT 40 mg Q24H ANKIT Administration Fentanyl 50 mcg 08/20/20 08:59 08/20/20 09:51 Fentanyl 50 Mcg/ Ml Inj 2ml IVP 50 mcg Q10M PRN Administration Preop Pain Piperacillin Sod/T azobactam 50 mls @ 12.5 mls /hr 08/17/20 19:00 08/20/20 06:26 Sod 3.375 gm/ So dium Chloride IV 0 mls/hr Q8H ANKIT Infusion Protocol Sodium Chloride 1,000 mls @ 50 ml s/hr 08/17/20 15:30 08/20/20 05:48 Sodium Chloride 0.9% IV 50 mls/hr .Q20H ANKIT Administration Vancomycin HCl 1,0 00 mg/ 250 mls @ 250 mls /hr 08/19/20 15:00 08/20/20 07:29 Sodium Chloride IV Infused Q8H ANKIT Infusion Protocol Nicotine 1 patch 08/19/20 20:00 08/19/20 20:07 Nicotine 21 Mg P atch TRANSDERMA Not Given DAILY ANKIT Oxycodone/Acetamin ophen 1 tab 08/17/20 14:24 08/20/20 05:46 Oxycodone-Apap 1 0-325 Mg Tablet PO 1 tab Q4H PRN Administration SEVERE PAIN PFSH Anesthesia PFSH: Medical History No pertinent past medical history Surgical History History of ankle surgery Family History Other No pertinent family history Social History Alcohol intake: never Data Anesthesia CBC & Chem 7: 08/20/20 05:56 08/20/20 05:56 Other Labs: Laboratory Results - last 48 hr 08/18/20 08/19/20 08/19/20 17:42 04:53 04:53 WBC 5.8 RBC 3.86 L Hgb 12.2 Hct 38.1 L MCV 98.7 H MCH 31.6 MCHC 32.0 RDW 13.4 Plt Count 239 MPV 11.3 H Neut % (Auto) 48.8 Lymph % (Auto) 27.1 [place] % (Auto) 13.7 Eos % (Auto) 8.0 Baso % (Auto) 1.9 Neut # (Auto) 2.81 Lymph # (Auto) 1.6 [place] # (Auto) 0.8 Eos # (Auto) 0.5 Baso # (Auto) 0.1 Nucleated RBC % (auto) 0 Nucleated RBCs # 0.0 Sodium 137 Potassium 4.4 Chloride 103 Carbon Dioxide 23 Anion Gap 15.4 BUN 20 Creatinine 0.7 GFR Calculation 120.4 Glucose 101 Calculated Osmolality 287 Calcium 8.3 L Vancomycin Trough 11.4 08/20/20 08/20/20 05:56 05:56 WBC 6.3 RBC 3.95 L Hgb 12.3 Hct 38.1 L MCV 96.5 H MCH 31.1 MCHC 32.3 RDW 13.2 Plt Count 258 MPV 10.9 H Neut % (Auto) 49.1 Lymph % (Auto) 27.7 [place] % (Auto) 13.9 Eos % (Auto) 7.2 Baso % (Auto) 1.6 Neut # (Auto) 3.09 Lymph # (Auto) 1.7 [place] # (Auto) 0.9 Eos # (Auto) 0.5 Baso # (Auto) 0.1 Nucleated RBC % (auto) 0 Nucleated RBCs # 0.0 Sodium 134 L Potassium 4.4 Chloride 102 Carbon Dioxide 23 Anion Gap 13.4 BUN 21 H Creatinine 0.8 GFR Calculation 103.2 Glucose 101 Calculated Osmolality 281 L Calcium 8.9 Vancomycin Trough Cardiac Studies: No Data to Display
--- NOTE | 2020-08-20 10:18 | W.PM.OPSUD ---
Surgery/Procedure H&P Update DATE OF PROCEDURE: August 20, 2020 DATE H&P PERFORMED: 08/17/20 H&P UPDATE INFORMATION: I have reviewed H&P completed within last 30 days, I have examined patient prior to procedure and No changes to prior documentation PREOP DIAGNOSIS: Bicondylar tibial plateau fracture with wound dehiscence PLANNED PROCEDURE: Operation Date: 08/20/20 15:00 Proposed Procedures p Debridement Lower Extremity(Left) - Brandon Knutson DO
[2020-08-20] MEDS: labetalol 5 mg/mL SDV 20mL IVP (12:12)
--- NOTE | 2020-08-20 12:14 | SUR.PHASEI ---
1211-- ORAL AIRWAY OUT, SIMPLE MASK AT 6LPM SAT 99%
--- NOTE | 2020-08-20 12:31 | PM.OP ---
Operative Report Date of procedure: August 20, 2020 Pre-op Diagnosis: Bicondylar tibial plateau fracture with wound dehiscence Post-op diagnosis: same Procedure Done: 1. Irrigation and debridement of medial wound 14 cm long down to fascia and muscle left leg 2. Irrigation and debridement of lateral wound 14 cm long dowm to fascia and muscle left leg 3. complex closure of medial 14 cm wound left leg 4. complex closure of lateral 14 cm wound left leg Surgeon: Brandon Knutson Anesthesia: General Estimated blood loss (mL): 50 Condition: stable Disposition: PACU Procedure: 1. Irrigation and debridement of medial wound 14 cm long down to fascia and muscle left leg 2. Irrigation and debridement of lateral wound 14 cm long dowm to fascia and muscle left leg 3. complex closure of medial 14 cm wound left leg 4. complex closure of lateral 14 cm wound left leg Patient is brought to the operative suite after undergoing anesthesia placed in supine position all areas impingement were well-padded left leg was prepped and draped normal sterile fashion. Wound was irrigated with 3 L of saline. Both medial lateral side stitches removed. This point the wound was debrided with sharp dissection. Once the wound was completely irrigated and debrided is approximate 14 cm long this was done both on the medial lateral side. On the plate plate was scrubbed with irrigation. And then the wound was closed with a trauma stitch. With a near far far near technique. This is done both medial laterally approximate 14 cm in length. Sterile dressings were then applied and patient was transferred to the PACU in stable addition. Cultures were taken from the wounds.
--- NOTE | 2020-08-20 13:29 | P.PN_ITS ---
Subjective Subjective: Interval history: Patient was seen this morning, seen postoperatively, he is complaining of mild left lower extremity pain, he has a drain in place, left lower extremity is wrapped, no nausea, no vomiting, no chest pain, currently not in pain Vitals/I&O/Wt Last Vital Signs Temp 97.2 F L 08/20/20 12:50 Pulse 74 08/20/20 12:50 Resp 18 08/20/20 13:03 BP 145/75 08/20/20 12:50 Pulse Ox 96 08/20/20 12:50 08/19/20 08/20/20 08/20/20 22:59 06:59 14:59 Intake Total 1885 / 3290 1335.625 / 4625.625 250 / 250 Output Total 1100 / 3225 1200 / 4425 920 / 920 Balance 785 / 65 135.625 / 200.625 -670 / -670 Physical Exam Const: COMMON NORMALS: no acute distress and patient oriented x3 Resp: COMMON NORMALS: normal respiratory effort, No retractions, No use of accessory muscles and clear to auscultation bilaterally AUSCULTATION: clear to auscultation bilaterally Cardio: COMMON NORMALS: regular rate, regular rhythm, S1 normal heart sound present and S2 normal heart sound present RATE: regular rate RHYTHM: regular rhythm HEART SOUNDS: S1 normal heart sound present and S2 normal heart sound present GI: COMMON NORMALS: Normal to inspection, nondistended, normoactive bowel sounds present and Soft to palpation PALPATION: Yes Soft to palpation Extremity: COMMON NORMALS: no pedal edema NARRATIVE EXTREMITY EXAM: Left lower extremity, wrapped from the knee down to the ankle, with a drain in place Neuro: COMMON NORMALS: patient oriented x3 Psych: COMMON NORMALS: mental status grossly normal Data : 08/20/20 05:56 08/20/20 05:56 A&P Assessment and plan (1) Surgical wound dehiscence: Patient needs to be in hospital for management of exposed lower extremity wound Bicondylar tibial plateau fracture with wound dehiscence Status post surgical debridement, as below, Dr. Knutson, postop day 0 1. Irrigation and debridement of medial wound 14 cm long down to fascia and muscle left leg 2. Irrigation and debridement of lateral wound 14 cm long dowm to fascia and muscle left leg 3. complex closure of medial 14 cm wound left leg 4. complex closure of lateral 14 cm wound left leg CT scan of the left lower extremity. ill-defined peripherally enhancing fluid collection extends along the anterior aspect of the tibia measuring 9.4 x 0.7 x 1.3 cm. Continue vancomycin and Zosyn for now, receiving IV hydration, pain control Follow wound cultures, anaerobic cultures Dr. Knutson on consult Lovenox for DVT prophylaxis Full code Status: Acute Qualifiers: Encounter type: initial encounter Qualified Code(s): T81.31XA - Disruption of external operation (surgical) wound, not elsewhere classified, initial encounter (2) Fracture tibia/fibula: Status: Acute Qualifiers: Encounter type: subsequent encounter Fracture healing: with delayed healing Fracture type: closed Laterality: left Qualified Code(s): S82.202G - Unspecified fracture of shaft of left tibia, subsequent encounter for closed fracture with delayed healing; S82.402G - Unspecified fracture of shaft of left fibula, subsequent encounter for closed fracture with delayed healing (3) LV dysfunction: Nonischemic heart failure with reduced ejection fraction. Currently compensated. 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
[2020-08-20] MEDS: enoxaparin 40 mg/0.4 mL Syringe SUBCUT (14:29)
--- NOTE | 2020-08-20 15:24 | PC.RESP ---
SMOKING CESSATION INFORMATION SENT TO PATIENT.
--- NOTE | 2020-08-20 15:32 | ANE.PACU2 ---
Inpatient post-anesthesia follow up: Airway intact: Yes Vital signs: Temperature 98.1 F Pulse Rate 81 Respiratory Rate 18 Blood Pressure 137/74 Pulse Oximetry 98 Oxygen Delivery Me thod Room Air Oxygen Flow Rate 6 Fraction of Inspir ed Oxygen Hydration adequate: Yes Nausea and vomiting: No Pain level: 3 Mental status: Baseline
[2020-08-20] MEDS: nicotine 21 mg Patch 1 PATCH TRANSDERMA (17:08)
[2020-08-21] VITALS (12 sets, daily range): BP systolic 123–149; BP diastolic 67–86; PULSE 71–90; RESP 12–18; TEMP 36.5–37.1; O2SAT 95–100
[2020-08-21] MEDS: vancomycin 1,000 MG in sodium chloride 0.9% 250 ML 250 MG IV ×4 (00:11→23:24)
[2020-08-21] MEDS: oxyCODONE-APAP 10-325 mg Tablet 1 TAB PO ×5 (02:54→23:24)
[2020-08-21] MEDS: piperacillin-tazobactam 3.375 GM in sodium chloride 0.9% (plus) 50 ML IV ×3 (05:41→20:47)
[2020-08-21 06:10] LABS: Basophils # 0.1 10^3/uL (0.0-0.1); Basophils % 0.7 %; Eosinophils # 0.2 10^3/uL (0.0-0.8); Eosinophils % 1.9 %; Hematocrit 35.4 % (42.0-52.0); Hemoglobin 11.4 g/dL (11.7-16.6); Lymphocytes # 1.8 10^3/uL (0.8-4.8); Lymphocytes % 17.3 %; Mean Corpuscular HGB Conc 32.2 g/dL (30.0-36.0); Mean Corpuscular Hemoglobin 31.3 pg (28.0-34.0); Mean Corpuscular Volume 97.3 fL (80-94); Mean Platelet Volume 11.6 fL (7.4-10.4); Monocytes # 1.1 10^3/uL (0.2-0.9); Neutrophils # 7.31 10^3/uL (1.8-7.7); Neutrophils % 69.6 %; Nucleated Red Blood Cells % 0 %; Platelet Count 219 10^3/cmm (130-400); Red Blood Count 3.64 10^6/uL (4.1-5.3); Red Cell Distribution Width 13.3 % (12.1-15.1); White Blood Count 10.5 10^3/uL (4.0-10.0)
[2020-08-21 06:23] LABS: Alanine Aminotransferase 121 U/L (0-41); Albumin Level 3.1 g/dL (3.5-5.2); Alkaline Phosphatase 90 IU/L (40-130); Anion Gap 15.4 (5-19); Aspartate Amino Transferase 68 U/L (0-40); Blood Urea Nitrogen 19 mg/dL (6-20); Calcium 8.2 mg/dL (8.5-10.5); Carbon Dioxide 22 mmol/L (22-29); Chloride 103 mmol/L (98-107); Globulin 3.9 g/dL (1.3-4.6); Glomerular Filtration Rate 120.4 mL/min (90-130); Glucose 137 mg/dL (65-115); Magnesium 1.8 mg/dL (1.7-2.3); Osmolality Calculated 286 mOsm/kg (285-295); Phosphorus 3.6 mg/dL (2.5-4.5); Potassium 4.4 mmol/L (3.5-5.1); Sodium 136 mmol/L (136-145); Total Bilirubin 0.2 mg/dL (0.15-1.2)
[2020-08-21 06:30] LABS: Vancomycin Trough 14.8 ug/mL (10-15)
[2020-08-21] MEDS: nicotine 21 mg Patch 1 PATCH TRANSDERMA ×2 (07:34→15:35)
[2020-08-21] MEDS: sodium chloride 0.9% 1,000 ML 50 ML IV (07:35)
--- NOTE | 2020-08-21 08:57 | PM.PN ---
Subjective Subjective: Interval history: Patient's pain is controlled he is sitting up in bed. Vitals/I&O/Wt Last Vital Signs Temp 97.8 F 08/21/20 08:00 Pulse 71 08/21/20 08:00 Resp 12 08/21/20 08:00 BP 123/73 08/21/20 08:00 Pulse Ox 99 08/21/20 08:00 08/20/20 08/21/20 08/21/20 22:59 06:59 14:59 Intake Total 1450 / 1700 1250 / 2950 1500 / 1500 Output Total 1250 / 2570 2150 / 4720 Balance 200 / -870 -900 / -1770 1500 / 1500 Physical Exam Narrative: EXAM NARRATIVE: Patient is drain has minimal output. At this point dressing is clean dry. Data : 08/21/20 05:38 08/21/20 05:38 A&P Assessment and plan (1) Surgical wound dehiscence: Cultures from the wound came back as methicillin-resistant staph aureus. Patient will need hardware in until his bone has healed. At this point the hardware can come out. Patient will likely need the be on antibiotics for this long. It would likely take 6 months to a year for this patient to heal his bone. He would likely need to be on antibiotics until the bone is healed. He will likely need a PICC line. 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
--- NOTE | 2020-08-21 10:15 | PC.OT ---
OT EVALUATION ORDERS RECEIVED. OT SCREEN COMPLETED. PATIENT DEMONSTRATES ABILITY TO CARE FOR HIS DAILY NEEDS. NO FURTHER SKILLED OT SERVICES REQUIRED AT THIS TIME.
--- NOTE | 2020-08-21 15:33 | PM.PN ---
Subjective Subjective: Interval history: This morning patient was examined, he continues to complain of pain in the left leg, at the surgical site, afebrile overnight, I had a extensive discussion with patient about his options, given that he has evidence of infection down to the level of hardware, he is going to need IV antibiotics, given his IV drug use, is homelessness, his lack of insurance, his lack of stable home environment, this will be quite difficult. Patient is motivated to get better, is motivated to comply with our instructions, he is working on getting a more stable environment. Vitals/I&O/Wt Last Vital Signs Temp 97.7 F 08/21/20 12:00 Pulse 90 08/21/20 12:00 Resp 16 08/21/20 12:00 BP 133/80 08/21/20 12:00 Pulse Ox 98 08/21/20 12:00 08/21/20 08/21/20 08/21/20 06:59 14:59 22:59 Intake Total 1250 / 2950 1989 / 1989 50 / 2040 Output Total 2150 / 4720 1870 / 1870 Balance -900 / -1770 120 / 120 50 / 170 Physical Exam Const: COMMON NORMALS: no acute distress and patient oriented x3 Resp: COMMON NORMALS: normal respiratory effort and clear to auscultation bilaterally AUSCULTATION: clear to auscultation bilaterally Cardio: COMMON NORMALS: regular rate, regular rhythm, S1 normal heart sound present and S2 normal heart sound present RATE: regular rate RHYTHM: regular rhythm HEART SOUNDS: S1 normal heart sound present and S2 normal heart sound present GI: COMMON NORMALS: Normal to inspection, nondistended, normoactive bowel sounds present, Soft to palpation and non-tender PALPATION: Yes Soft to palpation Extremity: COMMON NORMALS: no pedal edema NARRATIVE EXTREMITY EXAM: Left leg surgical site clean and dry Neuro: COMMON NORMALS: patient oriented x3 Psych: COMMON NORMALS: mental status grossly normal Data : 08/21/20 05:38 08/21/20 05:38 Micro: Microbiology 08/20/20 11:17 Anaerobic Culture - Preliminary Leg - #1 A&P Assessment and plan (1) Surgical wound dehiscence: Patient needs to be in hospital for management of exposed lower extremity wound Bicondylar tibial plateau fracture with wound dehiscence Status post surgical debridement, as below, Dr. Knutson, postop day 1 1. Irrigation and debridement of medial wound 14 cm long down to fascia and muscle left leg 2. Irrigation and debridement of lateral wound 14 cm long dowm to fascia and muscle left leg 3. complex closure of medial 14 cm wound left leg 4. complex closure of lateral 14 cm wound left leg -Hardware in place,, with evidence of infection extending down to bone, cultures growing MRSA CT scan of the left lower extremity. ill-defined peripherally enhancing fluid collection extends along the anterior aspect of the tibia measuring 9.4 x 0.7 x 1.3 cm. Continue vancomycin and Zosyn for now Pain control with oxycodone 11/25/2024 every 4 hours as needed, Ultram 50 mg every 6 hours for breakthrough pain, patient does have a history of drug use Follow wound cultures, anaerobic cultures, so far growing MRSA Given history of homelessness, IV drug use, lack of insurance, lost to follow-up options that are available to patient are unfortunately limited Consult infectious disease Dr. Knutson on consult Lovenox for DVT prophylaxis Full code Plan for today continue IV antibiotics, continue to monitor for pain, appropriate arrangement of antibiotic therapy Status: Acute Qualifiers: Encounter type: initial encounter Qualified Code(s): T81.31XA - Disruption of external operation (surgical) wound, not elsewhere classified, initial encounter (2) Fracture tibia/fibula: Status: Acute Qualifiers: Encounter type: subsequent encounter Fracture healing: with delayed healing Fracture type: closed Laterality: left Qualified Code(s): S82.202G - Unspecified fracture of shaft of left tibia, subsequent encounter for closed fracture with delayed healing; S82.402G - Unspecified fracture of shaft of left fibula, subsequent encounter for closed fracture with delayed healing (3) LV dysfunction: Nonischemic heart failure with reduced ejection fraction. Currently compensated. 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
[2020-08-21] MEDS: enoxaparin 40 mg/0.4 mL Syringe SUBCUT (15:34)
[2020-08-21] MEDS: TRAMadol 50 mg Tablet PO (21:18)
[2020-08-21 23:32] LABS: Quest SARS-CoV-2 RNA NOT DETECTED (NOT DETECTED)
[2020-08-22] VITALS (12 sets, daily range): BP systolic 133–148; BP diastolic 71–86; PULSE 72–90; RESP 13–19; TEMP 36.4–36.7; O2SAT 96–98
[2020-08-22] MEDS: oxyCODONE-APAP 10-325 mg Tablet 1 TAB PO ×5 (03:34→22:40)
[2020-08-22] MEDS: piperacillin-tazobactam 3.375 GM in sodium chloride 0.9% (plus) 50 ML IV ×3 (04:06→20:39)
[2020-08-22] MEDS: TRAMadol 50 mg Tablet PO ×2 (05:12→20:37)
[2020-08-22] MEDS: vancomycin 1,000 MG in sodium chloride 0.9% 250 ML 250 MG IV ×3 (06:30→23:28)
[2020-08-22 06:31] LABS: Basophils # 0.1 10^3/uL (0.0-0.1); Basophils % 1.6 %; Eosinophils # 0.5 10^3/uL (0.0-0.8); Eosinophils % 6.2 %; Hematocrit 40.1 % (42.0-52.0); Hemoglobin 13.1 g/dL (11.7-16.6); Lymphocytes # 2.4 10^3/uL (0.8-4.8); Lymphocytes % 29.4 %; Mean Corpuscular HGB Conc 32.7 g/dL (30.0-36.0); Mean Corpuscular Hemoglobin 31.7 pg (28.0-34.0); Mean Corpuscular Volume 97.1 fL (80-94); Mean Platelet Volume 11.5 fL (7.4-10.4); Monocytes % 11.9 %; Neutrophils # 4.06 10^3/uL (1.8-7.7); Neutrophils % 50.4 %; Nucleated Red Blood Cells % 0 %; Platelet Count 267 10^3/cmm (130-400); Red Blood Count 4.13 10^6/uL (4.1-5.3); Red Cell Distribution Width 13.6 % (12.1-15.1); White Blood Count 8.1 10^3/uL (4.0-10.0)
[2020-08-22 06:51] LABS: Alanine Aminotransferase 147 U/L (0-41); Albumin Level 3.5 g/dL (3.5-5.2); Alkaline Phosphatase 110 IU/L (40-130); Anion Gap 15.2 (5-19); Aspartate Amino Transferase 91 U/L (0-40); Blood Urea Nitrogen 19 mg/dL (6-20); Calcium 8.8 mg/dL (8.5-10.5); Carbon Dioxide 24 mmol/L (22-29); Chloride 98 mmol/L (98-107); Creatinine Clr Calc Pharmacy 119.2237; Globulin 4.6 g/dL (1.3-4.6); Glomerular Filtration Rate 103.2 mL/min (90-130); Glucose 87 mg/dL (65-115); Magnesium 1.8 mg/dL (1.7-2.3); Osmolality Calculated 278 mOsm/kg (285-295); Phosphorus 4.7 mg/dL (2.5-4.5); Potassium 4.2 mmol/L (3.5-5.1); Sodium 133 mmol/L (136-145); Total Bilirubin 0.4 mg/dL (0.15-1.2); Total Protein 8.1 g/dL (6.6-8.7)
--- NOTE | 2020-08-22 10:11 | PM.PN ---
Subjective Subjective: Interval history: Pain controlled resting comfortably in bed Vitals/I&O/Wt Last Vital Signs Temp 98 F 08/22/20 08:00 Pulse 80 08/22/20 08:00 Resp 16 08/22/20 08:58 BP 145/81 08/22/20 08:00 Pulse Ox 98 08/22/20 08:00 08/21/20 08/22/20 08/22/20 22:59 06:59 14:59 Intake Total 1060 / 3050 1380 / 4430 700 / 700 Output Total 1500 / 3370 1100 / 4470 650 / 650 Balance -440 / -320 280 / -40 50 / 50 Physical Exam Narrative: EXAM NARRATIVE: Dressing clean dry and intact. Data : 08/22/20 05:36 08/22/20 05:36 Micro: Microbiology 08/20/20 11:17 Anaerobic Culture - Preliminary Leg - #1 Wound Culture - Preliminary Staphylococcus aureus A&P Assessment and plan (1) Surgical wound dehiscence: PICC line ordered for today. Nonweightbearing left lower extremity Continue elevation of leg. Patient will need likely a intermediate for postop care with PICC line and and his history of drug abuse. Patient did state he has friends he could stay with. However if this was the case the family independence case manager needs to confirm with this friend that they have a safe environment for the next 3 months. Status: Acute Qualifiers: Encounter type: initial encounter Qualified Code(s): T81.31XA - Disruption of external operation (surgical) wound, not elsewhere classified, initial encounter Attestations Medical Necessity Statement*: Needs PICC line placement and stable environment to go to with PICC line in place. 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
[2020-08-22] MEDS: enoxaparin 40 mg/0.4 mL Syringe SUBCUT (13:23)
--- NOTE | 2020-08-22 16:42 | PM.PN ---
Subjective Subjective: Interval history: Patient was seen this morning, I have discussed with patient that he has a history of IV drug use, he does not have a stable home environment, he is homeless, does not have insurance, he really only has a few options. After the diligent work by her case workers, and Dr. Stark, we were able to arrange for IV antibiotics through a swing bed. I discussed with patient that this is the best option for him, the swing bed would provide him the best opportunity for saving his leg, he will get IV antibiotics, blood draws, frequent monitoring, he is lower extremity infection is severe, down to the bone, he is a high risk of morbidity and mortality, high risk of amputation, high risk of losing the lower extremity. I advised patient that this is the best option for him to save his lower extremity. However patient declined, he tells me that he does not want to go to [place], patient came up with many excuses for why he did not want to go with this option. I advised patient strongly that this is the only option that is available to him that is reasonable, and associated with the best optimal outcome for him and not losing his lower extremity. After discussion of the risks and benefits, he voiced understanding, all questions answered, declined this option. I advised patient that the only other option available to him given his IV drug use, PICC line would not be reasonable Thus the only option available to him would be oral Bactrim, however the this option is not ideal, it is associated with suboptimal infection control, it is associated with it measurable risk losing his lower extremity to infection. Patient tells me he wants to go to his friend's house, but really did not give me an answer, he tells me he wants to think it over. Vitals/I&O/Wt Last Vital Signs Temp 97.6 F 08/22/20 15:23 Pulse 74 08/22/20 15:23 Resp 18 08/22/20 15:23 BP 136/74 08/22/20 15:23 Pulse Ox 96 08/22/20 15:23 08/22/20 08/22/20 08/22/20 06:59 14:59 22:59 Intake Total 1380 / 4430 1100 / 1100 250 / 1350 Output Total 1100 / 4470 650 / 650 Balance 280 / -40 450 / 450 250 / 700 Physical Exam Const: COMMON NORMALS: no acute distress and patient oriented x3 Resp: COMMON NORMALS: normal respiratory effort, No retractions, No use of accessory muscles and clear to auscultation bilaterally AUSCULTATION: clear to auscultation bilaterally Cardio: COMMON NORMALS: regular rate, regular rhythm, S1 normal heart sound present and S2 normal heart sound present RATE: regular rate RHYTHM: regular rhythm HEART SOUNDS: S1 normal heart sound present and S2 normal heart sound present GI: COMMON NORMALS: Normal to inspection, nondistended, normoactive bowel sounds present, Soft to palpation and non-tender PALPATION: Yes Soft to palpation Extremity: COMMON NORMALS: no pedal edema NARRATIVE EXTREMITY EXAM: Left leg surgical site clean and dry Neuro: COMMON NORMALS: patient oriented x3 Psych: COMMON NORMALS: mental status grossly normal Data : 08/22/20 05:36 08/22/20 05:36 Micro: Microbiology 08/20/20 11:17 Anaerobic Culture - Preliminary Leg - #1 Wound Culture - Final Methicillin Resis Staph Aureus A&P Assessment and plan (1) Surgical wound dehiscence: Patient needs to be in hospital for management of exposed lower extremity wound Bicondylar tibial plateau fracture with wound dehiscence Status post surgical debridement, as below, Dr. Knutson, postop day 1 1. Irrigation and debridement of medial wound 14 cm long down to fascia and muscle left leg 2. Irrigation and debridement of lateral wound 14 cm long dowm to fascia and muscle left leg 3. complex closure of medial 14 cm wound left leg 4. complex closure of lateral 14 cm wound left leg -Hardware in place,, with evidence of infection extending down to bone, cultures growing MRSA CT scan of the left lower extremity. ill-defined peripherally enhancing fluid collection extends along the anterior aspect of the tibia measuring 9.4 x 0.7 x 1.3 cm. Continue vancomycin and Zosyn for now Pain control with oxycodone 11/25/2024 every 4 hours as needed, Ultram 50 mg every 6 hours for breakthrough pain, patient does have a history of drug use Follow wound cultures, anaerobic cultures, so far growing MRSA Given history of homelessness, IV drug use, lack of insurance, lost to follow-up options that are available to patient are unfortunately limited Has refused swing bed for now Has not given an answer to oral antibiotics, tells me he is wants to think it over for the next 24 hours Consult infectious disease Dr. Knutson on consult Lovenox for DVT prophylaxis Full code Plan for today continue IV antibiotics, continue to monitor for pain, await decision by patient Status: Acute Qualifiers: Encounter type: initial encounter Qualified Code(s): T81.31XA - Disruption of external operation (surgical) wound, not elsewhere classified, initial encounter (2) Fracture tibia/fibula: Status: Acute Qualifiers: Encounter type: subsequent encounter Fracture healing: with delayed healing Fracture type: closed Laterality: left Qualified Code(s): S82.202G - Unspecified fracture of shaft of left tibia, subsequent encounter for closed fracture with delayed healing; S82.402G - Unspecified fracture of shaft of left fibula, subsequent encounter for closed fracture with delayed healing (3) LV dysfunction: Nonischemic heart failure with reduced ejection fraction. Currently compensated. 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
[2020-08-23] VITALS (12 sets, daily range): BP systolic 120–143; BP diastolic 73–89; PULSE 70–89; RESP 14–20; TEMP 36.5–37.1; O2SAT 95–99
--- NOTE | 2020-08-23 00:30 | PM.CONSULT ---
Providers/Reason For Consult Consulting Physician/Specialty*: Vikki Stark MD/Infectious Disease Reason for Consult*: Hardware infection Attending Physician: Chung Lester MD Primary Care Provider: Jacquelyn Brown DO History of Present Illness History of Present Illness Augustus Smith is a 50 year old male recently admitted at [facility] after an accidental injury that resulted in acute proximal tib-fib fracture and required surgery. Patient went to the OR on July 27, 2020. An external fixator was placed at that time. Patient was taken back to the OR on August 06 for removal of the external hardware and placement of internal hardware. The following day the patient was able to toe-touch weight-bear with a walker 70 feet and today he is walking further. Patient is homeless and returned to a homeless group home from where he was eventually evicted. He eventually developed wound dehiscence and was admitted due to concern for deep hardware infection. He underwent I&D on 08/20 with cleaning to level of plates. OR cx returned with MRSA. Patient is currently on treatment with vancomycin. H/o IVDU+. Review of Systems General: Reports: 10 or more systems reviewed and unremarkable except in HPI and below Const: Denies: fever(s) or body aches Eyes: Denies: change in vision, blurry vision or photophobia ENMT: Reports: hoarseness; Denies: throat pain, enlarged tonsils, odynophagia or nasal congestion Card: Denies: chest pain, palpitations, irregular heart rhythm, edema, swelling of feet/ankles, lightheadedness, pre-syncope, dyspnea on exertion or orthopnea Resp: Denies: dyspnea, productive cough, non-productive cough, wheezing, stridor, pain on inspiration, change in phlegm color, hemoptysis or chest congestion GI: Denies: abdominal pain, nausea, vomiting, hematemesis, coffee ground emesis, dysphagia, heartburn, diarrhea, constipation, GI cramping, change in stool character, hematochezia or melena : Denies: flank pain, dysuria, urinary frequency, urinary urgency, urinary hesitancy or hematuria Musc: Denies: neck pain, back pain, extremity pain, joint swelling, joint warmth or deformity Neuro: Denies: headache(s), numbness in extremities, weakness in extremities, sensory changes, difficulty walking, frequent falls, dizziness, vertigo, behavioral changes, Slurred speech present or seizure-like activity Psych: Denies: anxiety, depression, suicidal ideation or homicidal ideation Endo: Denies: polyuria, polydipsia, tired all the time, cold intolerance or hot flashes Edgar/Lymph: Denies: easy bruising or easy bleeding Meds/Allergies Home Medications and Allergies Home Medications Medication Instructions Recorded Confirmed Last Taken Type aspirin 81 mg PO DAILY #30 tab 08/08/20 08/18/20 Unknown Rx celecoxib 200 mg PO Q12H #60 cap 08/08/20 08/18/20 Unknown Rx furosemide [Lasix] 40 mg PO QAM #30 tab 08/08/20 08/18/20 Unknown Rx nitroglycerin 0.4 mg SUBLINGUAL Q5M PRN #30 tab 08/08/20 08/18/20 Unknown Rx cephalexin 500 mg PO QID 10 Days #40 cap 08/12/20 08/18/20 Unknown Rx WHEEL CHAIR WITH LEG ELEVATORS #1 ea 08/14/20 08/18/20 Unknown Rx hydrocodone 7.5 mg-acetaminophen 1 tab PO Q6H PRN 10 Days #40 tab 08/14/20 08/18/20 Unknown Rx 325 mg tablet Allergies Allergy/AdvReac Type Severity Reaction Status Date / Time No Known Allergies Allergy Verified 08/14/20 09:09 Current Medications Current Medications Generic Name Dose Route Start Last Admin Trade Name Freq PRN Reason Stop Dose Admin Acetaminophen 650 mg 08/17/20 14:24 08/19/20 07:57 Acetaminophen 325 Mg Tablet PO 650 mg Q6H PRN Administration Mild/Mod Pain Or Temp >/= 101 Enoxaparin Sodium 40 mg 08/17/20 15:30 08/22/20 13:23 Enoxaparin 40 Mg/0.4 Ml Syringe SUBCUT 40 mg Q24H ANKIT Administration Piperacillin Sod/Tazobactam 50 mls @ 12.5 mls/hr 08/17/20 19:00 08/22/20 20:39 Sod 3.375 gm/ Sodium Chloride IV 12.5 mls/hr Q8H ANKIT Administration Protocol Vancomycin HCl 1,000 mg/ 250 mls @ 250 mls/hr 08/19/20 15:00 08/22/20 23:28 Sodium Chloride IV 250 mls/hr Q8H ANKIT Administration Protocol Nicotine 1 patch 08/19/20 20:00 08/21/20 15:35 Nicotine 21 Mg Patch TRANSDERMA 1 patch DAILY ANKIT Administration Oxycodone/Acetaminophen 1 tab 08/17/20 14:24 08/22/20 22:40 Oxycodone-Apap 10-325 Mg Tablet PO 1 tab Q4H PRN Administration SEVERE PAIN Tramadol HCl 50 mg 08/21/20 15:38 08/22/20 20:37 Tramadol 50 Mg Tablet PO 50 mg Q8H PRN Administration severe breakthrough pain PFSH Acute PFSH: Medical History No pertinent past medical history Surgical History History of ankle surgery Family History Other No pertinent family history Social History Alcohol intake: never Vitals/I&O/Wt Last Vital Signs Temp 97.7 F 08/22/20 23:55 Pulse 72 08/22/20 23:55 Resp 16 08/22/20 23:55 BP 135/71 08/22/20 23:55 Pulse Ox 97 08/22/20 23:55 08/22/20 08/22/20 08/23/20 14:59 22:59 06:59 Intake Total 1100 / 1100 1500 / 2600 Output Total 650 / 650 1675 / 2325 240 / 2565 Balance 450 / 450 -175 / 275 -240 / 35 Physical Exam Narrative: EXAM NARRATIVE: GEN: Awake, alert and oriented, no acute distress CVS: S1S2 N RS: CTA B/L Abd: Soft, nt/nd , bs+ RESPIRATORY CARE TECHNICIAN: no focal neuro deficits Data Micro: Micro: Microbiology 08/20/20 11:17 Anaerobic Culture - Preliminary Leg - #1 Wound Culture - Fi nal Methicillin Res is Staph Aureus A&P Assessment and plan (1) Surgical wound dehiscence: Status: Acute Qualifiers: Encounter type: initial encounter Qualified Code(s): T81.31XA - Disruption of external operation (surgical) wound, not elsewhere classified, initial encounter (2) MRSA (methicillin resistant Staphylococcus aureus) infection: Status: Acute Additional A&P Information Recommend 6 weeks of iv abx for treatment of deep wound infection, with extension to hardware Ideally would use iv vancomycin, however patient's social situation makes selection of iv abx difficult. He is currently homeless, therefor home iv administration is not an option. He is unable and unmotivated to return to the hospital for daily iv infusions Swing bed at [facility] rehab was arranged by case management however patient refuses to go to rehab as he does not wish to be tied down and remain at the facility for 6 weeks. He wishes to be able to leave and enter the facility at his will, which is unlikely to be possible. Given above, we will likely use po bactrim DS BID for 6 weeks for treatment. Patient has been explained that he is at a higher risk of recurrence of infection, imcomplete resolution of symptoms and risk of amputation with the oral regimen. ESR,CRP with am labs to trend response to treatment over time. 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
[2020-08-23] MEDS: oxyCODONE-APAP 10-325 mg Tablet 1 TAB PO ×4 (02:54→20:16)
[2020-08-23] MEDS: piperacillin-tazobactam 3.375 GM in sodium chloride 0.9% (plus) 50 ML IV ×2 (02:59→11:11)
[2020-08-23 06:27] LABS: Basophils # 0.1 10^3/uL (0.0-0.1); Basophils % 1.9 %; Eosinophils # 0.5 10^3/uL (0.0-0.8); Eosinophils % 6.9 %; Hematocrit 37.8 % (42.0-52.0); Hemoglobin 12.5 g/dL (11.7-16.6); Lymphocytes # 1.9 10^3/uL (0.8-4.8); Mean Corpuscular HGB Conc 33.1 g/dL (30.0-36.0); Mean Corpuscular Hemoglobin 31.6 pg (28.0-34.0); Mean Corpuscular Volume 95.5 fL (80-94); Mean Platelet Volume 11.7 fL (7.4-10.4); Monocytes % 13.7 %; Neutrophils # 3.91 10^3/uL (1.8-7.7); Nucleated Red Blood Cells % 0 %; Platelet Count 247 10^3/cmm (130-400); Red Blood Count 3.96 10^6/uL (4.1-5.3); Red Cell Distribution Width 13.4 % (12.1-15.1); White Blood Count 7.5 10^3/uL (4.0-10.0)
[2020-08-23 06:46] LABS: Alanine Aminotransferase 151 U/L (0-41); Albumin Level 3.4 g/dL (3.5-5.2); Alkaline Phosphatase 111 IU/L (40-130); Aspartate Amino Transferase 94 U/L (0-40); Blood Urea Nitrogen 20 mg/dL (6-20); Calcium 8.8 mg/dL (8.5-10.5); Carbon Dioxide 25 mmol/L (22-29); Chloride 97 mmol/L (98-107); Globulin 4.1 g/dL (1.3-4.6); Glomerular Filtration Rate 120.4 mL/min (90-130); Glucose 117 mg/dL (65-115); Magnesium 1.8 mg/dL (1.7-2.3); Osmolality Calculated 278 mOsm/kg (285-295); Phosphorus 4.5 mg/dL (2.5-4.5); Sodium 132 mmol/L (136-145); Total Bilirubin 0.3 mg/dL (0.15-1.2); Total Protein 7.5 g/dL (6.6-8.7)
[2020-08-23 06:49] LABS: C Reactive Protein 1.5 mg/L (0.0-4.9)
[2020-08-23] MEDS: vancomycin 1,000 MG in sodium chloride 0.9% 250 ML 250 MG IV ×3 (06:59→22:45)
[2020-08-23 07:18] LABS: Erythrocyte Sedimentation Rate 36 mm/hr (0-10)
--- NOTE | 2020-08-23 08:31 | PM.PN ---
Subjective Subjective: Interval history: Had discussion this morning with patient regarding PICC line and staying in a detention setting. Patient is agreeable to stay in a detention he would like to get his close at 12 discussed this with case management. Vitals/I&O/Wt Last Vital Signs Temp 97.7 F 08/23/20 07:48 Pulse 76 08/23/20 07:48 Resp 14 08/23/20 07:48 BP 143/88 08/23/20 07:48 Pulse Ox 99 08/23/20 07:48 08/22/20 08/23/20 08/23/20 22:59 06:59 14:59 Intake Total 1500 / 2600 1260 / 3860 50 / 50 Output Total 1675 / 2325 1640 / 3965 550 / 550 Balance -175 / 275 -380 / -105 -500 / -500 Physical Exam Narrative: EXAM NARRATIVE: Wound with drainage. Swelling down the leg. Data : 08/23/20 05:51 08/23/20 05:51 Micro: Microbiology 08/20/20 11:17 Anaerobic Culture - Preliminary Leg - #1 Wound Culture - Final Methicillin Resis Staph Aureus A&P Assessment and plan (1) Surgical wound dehiscence: Patient is agreeable to go to a skilled facility detention on IV antibiotics. I told him that this would give the best chance to heal the wound of still concerned even if he does do this. But if he does not he will likely have continued issues with his wounds. Status: Acute Qualifiers: Encounter type: initial encounter Qualified Code(s): T81.31XA - Disruption of external operation (surgical) wound, not elsewhere classified, initial encounter Attestations Medical Necessity Statement*: Needs IV antibiotics and placement. 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
[2020-08-23] MEDS: nicotine 21 mg Patch 1 PATCH TRANSDERMA (09:21)
--- NOTE | 2020-08-23 11:06 | PC.NUTR ---
Nutrition reassessment: Continue to recommend obtaining current weight, given fluctuations per weight record at recent admission. See RD assessments for further details.
--- NOTE | 2020-08-23 15:01 | PM.PN ---
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, sorting his affairs out before he goes to [facility], I advised that we can help with this, no shortness of breath, no chest pain, Vitals/I&O/Wt Last Vital Signs Temp 98.7 F 08/23/20 12:09 Pulse 81 08/23/20 12:09 Resp 18 08/23/20 12:36 BP 139/89 08/23/20 12:09 Pulse Ox 97 08/23/20 12:09 08/23/20 08/23/20 08/23/20 06:59 14:59 22:59 Intake Total 1260 / 3860 1040 / 1040 Output Total 1640 / 3965 550 / 550 Balance -380 / -105 490 / 490 Physical Exam Const: COMMON NORMALS: no acute distress and patient oriented x3 Resp: COMMON NORMALS: normal respiratory effort, No retractions, No use of accessory muscles and clear to auscultation bilaterally AUSCULTATION: clear to auscultation bilaterally Cardio: COMMON NORMALS: regular rate, regular rhythm, S1 normal heart sound present and S2 normal heart sound present RATE: regular rate RHYTHM: regular rhythm HEART SOUNDS: S1 normal heart sound present and S2 normal heart sound present GI: COMMON NORMALS: Normal to inspection, nondistended, normoactive bowel sounds present, Soft to palpation and non-tender PALPATION: Yes Soft to palpation Extremity: NARRATIVE EXTREMITY EXAM: Left leg surgical site clean and dry, with plastic over it Neuro: COMMON NORMALS: patient oriented x3 Psych: COMMON NORMALS: mental status grossly normal Data : 08/23/20 05:51 08/23/20 05:51 Micro: Microbiology 08/20/20 11:17 Anaerobic Culture - Preliminary Leg - #1 Wound Culture - Final Methicillin Resis Staph Aureus A&P Assessment and plan (1) Surgical wound dehiscence: Patient needs to be in hospital for management of exposed lower extremity wound Bicondylar tibial plateau fracture with wound dehiscence Status post surgical debridement, as below, Dr. Knutson, 1. Irrigation and debridement of medial wound 14 cm long down to fascia and muscle left leg 2. Irrigation and debridement of lateral wound 14 cm long dowm to fascia and muscle left leg 3. complex closure of medial 14 cm wound left leg 4. complex closure of lateral 14 cm wound left leg -Hardware in place,, with evidence of infection extending down to bone, cultures growing MRSA CT scan of the left lower extremity. ill-defined peripherally enhancing fluid collection extends along the anterior aspect of the tibia measuring 9.4 x 0.7 x 1.3 cm. Continue vancomycin and Zosyn for now Culture so far showing MRSA Pain control with oxycodone 11/25/2024 every 4 hours as needed, Ultram 50 mg every 6 hours for breakthrough pain, patient does have a history of drug use Follow wound cultures, anaerobic cultures, so far growing MRSA Given history of homelessness, IV drug use, lack of insurance, lost to follow-up options that are available to patient are unfortunately limited Has agreed to swing bed Consult infectious disease Dr. Knutson on consult Lovenox for DVT prophylaxis Full code Plan for today continue IV antibiotics, continue to monitor for pain, port placement to swing bed in [facility] Status: Acute Qualifiers: Encounter type: initial encounter Qualified Code(s): T81.31XA - Disruption of external operation (surgical) wound, not elsewhere classified, initial encounter (2) MRSA (methicillin resistant Staphylococcus aureus) infection: Status: Acute Additional A&P Information Recommend 6 weeks of iv abx for treatment of deep wound infection, with extension to hardware Ideally would use iv vancomycin, however patient's social situation makes selection of iv abx difficult. He is currently homeless, therefor home iv administration is not an option. He is unable and unmotivated to return to the hospital for daily iv infusions Swing bed at [facility] rehab was arranged by case management however patient refuses to go to rehab as he does not wish to be tied down and remain at the facility for 6 weeks. He wishes to be able to leave and enter the facility at his will, which is unlikely to be possible. Given above, we will likely use po bactrim DS BID for 6 weeks for treatment. Patient has been explained that he is at a higher risk of recurrence of infection, imcomplete resolution of symptoms and risk of amputation with the oral regimen. ESR,CRP with am labs to trend response to treatment over time. 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
[2020-08-23] MEDS: enoxaparin 40 mg/0.4 mL Syringe SUBCUT (15:20)
[2020-08-23] MEDS: TRAMadol 50 mg Tablet PO ×2 (15:32→23:28)
--- NOTE | 2020-08-23 18:49 | PM.PN ---
Subjective Subjective: Interval history: Infectious disease follow-up note. [facility] rehab to complete his IV antibiotic course. 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 Data : 08/23/20 05:51 08/23/20 05:51 Micro: Microbiology 08/20/20 11:17 Anaerobic Culture - Preliminary Leg - #1 Wound Culture - Final Methicillin Resis Staph Aureus A&P Assessment and plan (1) Surgical wound dehiscence: Status: Acute Qualifiers: Encounter type: initial encounter Qualified Code(s): T81.31XA - Disruption of external operation (surgical) wound, not elsewhere classified, initial encounter (2) MRSA (methicillin resistant Staphylococcus aureus) infection: Status: Acute Additional A&P Information Recommend 6 weeks of iv abx for treatment of deep wound infection, with possible extension to hardware iv vancomycin 1 IV every 8 hours with target trough of 15-20 He is currently homeless, therefor home iv administration is not an option. 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
[2020-08-24] VITALS (8 sets, daily range): BP systolic 134–148; BP diastolic 77–89; PULSE 68–95; RESP 15–18; TEMP 36.7–37.2; O2SAT 96–99
[2020-08-24] MEDS: oxyCODONE-APAP 10-325 mg Tablet 1 TAB PO ×4 (00:53→15:41)
[2020-08-24] MEDS: vancomycin 1,000 MG in sodium chloride 0.9% 250 ML 250 MG IV (06:50)
[2020-08-24 06:59] LABS: Basophils # 0.1 10^3/uL (0.0-0.1); Basophils % 1.5 %; Eosinophils # 0.5 10^3/uL (0.0-0.8); Eosinophils % 7.8 %; Hematocrit 39.5 % (42.0-52.0); Lymphocytes # 1.9 10^3/uL (0.8-4.8); Lymphocytes % 29.1 %; Mean Corpuscular HGB Conc 32.9 g/dL (30.0-36.0); Mean Corpuscular Hemoglobin 31.9 pg (28.0-34.0); Mean Corpuscular Volume 96.8 fL (80-94); Mean Platelet Volume 11.1 fL (7.4-10.4); Monocytes # 0.9 10^3/uL (0.2-0.9); Monocytes % 14.1 %; Neutrophils # 3.12 10^3/uL (1.8-7.7); Neutrophils % 46.9 %; Nucleated Red Blood Cells % 0 %; Platelet Count 241 10^3/cmm (130-400); Red Blood Count 4.08 10^6/uL (4.1-5.3); Red Cell Distribution Width 13.3 % (12.1-15.1); White Blood Count 6.7 10^3/uL (4.0-10.0)
[2020-08-24 07:24] LABS: Albumin Level 3.7 g/dL (3.5-5.2); Alkaline Phosphatase 109 IU/L (40-130); Chloride 100 mmol/L (98-107); Glucose 96 mg/dL (65-115); Potassium 4.3 mmol/L (3.5-5.1); Sodium 136 mmol/L (136-145)
[2020-08-24 07:38] LABS: Alanine Aminotransferase 173 U/L (0-41); Anion Gap 13.3 (5-19); Aspartate Amino Transferase 108 U/L (0-40); Blood Urea Nitrogen 19 mg/dL (6-20); Calcium 9.5 mg/dL (8.5-10.5); Carbon Dioxide 25 mmol/L (22-29); Globulin 4.1 g/dL (1.3-4.6); Glomerular Filtration Rate 120.4 mL/min (90-130); Magnesium 1.7 mg/dL (1.7-2.3); Osmolality Calculated 281 mOsm/kg (285-295); Phosphorus 4.1 mg/dL (2.5-4.5); Total Bilirubin 0.3 mg/dL (0.15-1.2); Total Protein 7.7 g/dL (6.6-8.7)
[2020-08-24] MEDS: nicotine 21 mg Patch 1 PATCH TRANSDERMA (09:01)
--- NOTE | 2020-08-24 09:25 | XR_ITS ---
WS: [id number] PORTABLE CHEST HISTORY: Post PICC placement COMPARISON: 07/26/2020 Right-sided PICC line in good position with tip in the distal SVC. No change in appearance of the lungs. No pleural effusion or pneumothorax. Cardiac size: Normal. Mediastinum/Aorta: Normal mediastinum. No osseous abnormality seen. XR/XR chest 1V portable [id number] IMPRESSION: Satisfactory placement RIGHT PICC line.
--- NOTE | 2020-08-24 14:20 | P.DS_ITS ---
Discharge Providers Date of Admission: 08/17/20 12:23 Date of Discharge: August 24, 2020 Attending Provider at Admission: Bryant Yen MD Attending Provider at Discharge: Chung Lester MD Primary Care Provider: Jacquelyn Brown DO Diagnoses at Discharge Discharge Diagnosis (1) Surgical wound dehiscence: Status: Acute Qualifiers: Encounter type: initial encounter Qualified Code(s): T81.31XA - Disruption of external operation (surgical) wound, not elsewhere classified, initial encounter (2) MRSA (methicillin resistant Staphylococcus aureus) infection: Status: Acute Reason for Visit Reason for Visit: wound dehiscence Hospital Course Hospital Course This is a 50-year-old male with a recent history of fracture of left tibia fibula, with nonischemic cardiomyopathy with reduced ejection fraction, who presents [facility] due to concerns for surgical wound dehiscence Patient was admitted to [facility] for surgical wound dehiscence Surgical wound dehiscence: Bicondylar tibial plateau fracture with wound dehiscence Status post surgical debridement, as below, Dr. Knutson, 1. Irrigation and debridement of medial wound 14 cm long down to fascia and muscle left leg 2. Irrigation and debridement of lateral wound 14 cm long dowm to fascia and muscle left leg 3. complex closure of medial 14 cm wound left leg 4. complex closure of lateral 14 cm wound left leg -Hardware in place,, with evidence of infection extending down to bone, cultures growing MRSA CT scan of the left lower extremity. ill-defined peripherally enhancing fluid collection extends along the anterior aspect of the tibia measuring 9.4 x 0.7 x 1.3 cm. Currently on vancomycin Culture so far showing MRSA Pain control with oxycodone 11/25/2024 every 4 hours as needed, Given history of homelessness, IV drug use, lack of insurance, loss to follow-up options that are available to patient are limited will be discharged to [facility] bed, vancomycin 1000 mg IV every 8 hours for 38 remaining days, aim for vancomycin trough 15-20, recheck trough tonight at 2200 -PICC line in place -Follow-up with infectious disease in 6 weeks -Follow-up with Dr. Knutson after discharge -Nonweightbearing to left lower extremity, PT OT -Pain control with oxycodone Physical Exam Const: COMMON NORMALS: no acute distress and patient oriented x3 Resp: COMMON NORMALS: normal respiratory effort, No retractions, No use of accessory muscles and clear to auscultation bilaterally AUSCULTATION: clear to auscultation bilaterally Cardio: COMMON NORMALS: regular rate, regular rhythm, S1 normal heart sound present and S2 normal heart sound present RATE: regular rate RHYTHM: regular rhythm HEART SOUNDS: S1 normal heart sound present and S2 normal heart sound present GI: COMMON NORMALS: Normal to inspection, nondistended, normoactive bowel sounds present, Soft to palpation and non-tender PALPATION: Yes Soft to palpation Extremity: NARRATIVE EXTREMITY EXAM: Left leg surgical site clean and dry, with plastic over it Neuro: COMMON NORMALS: patient oriented x3 Psych: COMMON NORMALS: mental status grossly normal Discharge Data Data Completed and Pending: Completed Studies During Hospitalization Category Date Time Status CT lower leg LT w o con* [id number] Routi ne Cat Scan 08/18/20 12:27 Completed CXRP [XR chest 1V portable [id number]] R outine Exams 08/24/20 09:25 Completed Pending at discharge Category Date Time Status Anaerobic Culture Routine Lab 08/20/20 11:17 Results Complete Blood Co unt w/Auto AM LABS Lab 08/25/20 04:00 Ordered Complete Blood Co unt w/Auto AM LABS Lab 08/26/20 04:00 Ordered Comprehensive Met abolic Panel AM LA BS Lab 08/25/20 04:00 Ordered Comprehensive Met abolic Panel AM LA BS Lab 08/26/20 04:00 Ordered Magnesium AM LABS Lab 08/25/20 04:00 Ordered Magnesium AM LABS Lab 08/26/20 04:00 Ordered Phosphorus AM LAB S Lab 08/25/20 04:00 Ordered Phosphorus AM LAB S Lab 08/26/20 04:00 Ordered Vancomycin Trough Timed Lab 08/24/20 22:00 Ordered Wound Culture Rou tc Lab 08/20/20 11:17 Results Labs from last 24 hours 08/24/20 08/24/20 06:47 06:47 WBC 6.7 RBC 4.08 L Hgb 13.0 Hct 39.5 L MCV 96.8 H MCH 31.9 MCHC 32.9 RDW 13.3 Plt Count 241 MPV 11.1 H Neut % (Auto) 46.9 Lymph % (Auto) 29.1 [place] % (Auto) 14.1 Eos % (Auto) 7.8 Baso % (Auto) 1.5 Neut # (Auto) 3.12 Lymph # (Auto) 1.9 [place] # (Auto) 0.9 Eos # (Auto) 0.5 Baso # (Auto) 0.1 Nucleated RBC % (a uto) 0 Nucleated RBCs # 0.0 Sodium 136 Potassium 4.3 Chloride 100 Carbon Dioxide 25 Anion Gap 13.3 BUN 19 Creatinine 0.7 GFR Calculation 120.4 Glucose 96 Calculated Osmolal ity 281 L Calcium 9.5 Phosphorus 4.1 Magnesium 1.7 Total Bilirubin 0.3 AST 108 H ALT 173 H Alkaline Phosphata se 109 Total Protein 7.7 Albumin 3.7 Globulin 4.1 Vitals: Last Vital Signs Temp 98.9 F 08/24/20 12:14 Pulse 95 08/24/20 12:14 Resp 17 08/24/20 12:14 BP 134/89 08/24/20 12:14 Pulse Ox 96 08/24/20 12:14 Discharge Plan Discharge Patient Disposition: Xfer SNF Condition: Stable Prescriptions: New oxycodone-acetaminophen 10-325 mg Tablet 1 tab PO Q4H PRN (Reason: Severe Pain) 7 Days Qty: 42 RF: 0 nicotine 21 mg/24 hr Patch 24 Hour 1 patch transdermal DAILY 30 Days Qty: 30 RF: 0 bisacodyl 5 mg Tablet,Delayed Release (Dr/Ec) 10 mg PO DAILY PRN (Reason: Constipation (see protocol)) 30 Days Qty: 30 RF: 0 vancomycin 1,000 mg recon soln 1,000 mg IV Q8H 38 Days Qty: 10 RF: 0 Continued (DME) WHEEL CHAIR WITH LEG ELEVATORS See Rx Instructions .ROUTE .MEDSUPPLY Qty: 1 RF: 0 aspirin 81 mg Tablet,Delayed Release (Dr/Ec) 81 mg PO DAILY Qty: 30 RF: 0 nitroglycerin 0.4 mg Tablet, Sublingual 0.4 mg sublingual Q5M PRN (Reason: Chest Pain) Qty: 30 RF: 0 furosemide [Lasix] 40 mg tablet 40 mg PO QAM Qty: 30 RF: 0 Discontinued hydrocodone-acetaminophen 7.5-325 mg tablet 1 tab PO Q6H PRN (Reason: pain (scale score 7-10)) 10 Days Qty: 40 RF: 0 celecoxib 200 mg Capsule 200 mg PO Q12H Qty: 60 RF: 0 cephalexin 500 mg capsule 500 mg PO QID 10 Days Qty: 40 RF: 0 Discharge Orders: Discharge Order (Routine); Ordered 08/24/20 Ordered By: Chung Lester Referrals: Brandon Knutson DO [Physician] - 6 Weeks (after completion on IV anx) Vikki Stark MD [Hospitalist] - 6 Weeks (after completion of IV abx) Discharge Diet: Regular Discharge Activity: Resume usual activity Activity Restrictions/Additional Instructions: -Continue vancomycin 1000 mg every 8 hours, trough of 15-20, recheck trough tonight at 2200, pharmacy to dose for 30 remaining days -PICC line in place -Check CBC and CMP weekly -Physical therapy -Follow-up with infectious disease after completion of IV antibiotics -Follow-up with Dr. Knutson -Nonweightbearing left lower extremity, continue leg elevation Discharge Attestations Time Spent in Discharge Care*: less than 30 min Quality Metrics Clinical Quality Measures During this hospital stay, did patient experience: None Coding Level of Care Code Acute Chg [facility] note Diagnoses Surgical wound dehiscence T81.31XA Encounter type: initial encounter MRSA (methicillin resistant Staphylococcus aureus) infection A49.02
== END 2020-08-24 15:45 | disposition swing bed (61) | DRG 908 ==
PROVIDERS: Orthopaedic Surgery; Specialist; Student in an Organized Health Care Education/Training Program; Admitting Provider Internal Medicine; PCP Family Medicine; Visit Provider Family Medicine
PROC: 0KBT0ZZ Excision of Left Lower Leg Muscle, Open Approach (ICD-10-PCS; principal; 2020-08-20 14:55)
DX: T81.32XA Disruption of internal operation (surgical) wound, not elsewhere classified, initial encounter (principal); T81.42XA Infection following a procedure, deep incisional surgical site, initial encounter; I50.1 Left ventricular failure, unspecified; Y83.8 Other surgical procedures as the cause of abnormal reaction of the patient, or of later complication, without mention of misadventure at the time of the procedure; S82.402G Unspecified fracture of shaft of left fibula, subsequent encounter for closed fracture with delayed healing; X58.XXXD Exposure to other specified factors, subsequent encounter; J44.9 Chronic obstructive pulmonary disease, unspecified; B95.62 Methicillin resistant Staphylococcus aureus infection as the cause of diseases classified elsewhere; F19.11 Other psychoactive substance abuse, in remission; G89.18 Other acute postprocedural pain; Z59.0 Homelessness
CPT/HCPCS: 36415; 36569; 71045; 73700; 80048; 80053; 80202; 83735; 84100; 84145; 85025; 85651; 86140; 87070; 87075; 87077; 87184; 87186; 87205; 87635; 96372; 97164; J1100; J1170; J1650; J2370; J2405; J2543; J2704; J3010; J3370; J3490; J7030; J7050

== ENCOUNTER → 2020-09-04 14:34 | Outpatient (BNVA) | payer SELFPAY | PROVIDERS: PCP Family Medicine; Visit Provider Orthopaedic Surgery | DX: S82.202G Unspecified fracture of shaft of left tibia, subsequent encounter for closed fracture with delayed healing (principal); S82.402G Unspecified fracture of shaft of left fibula, subsequent encounter for closed fracture with delayed healing; X58.XXXD Exposure to other specified factors, subsequent encounter | CPT/HCPCS: 73590 ==

== ENCOUNTER 2020-09-08 03:29 | Emergency (ER) | payer SELFPAY ==
[2020-09-08 03:31] VITALS: BP 133/86; PULSE 93; RESP 18; TEMP 36.6; O2SAT 100; BMI 25.8
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
[2020-09-08] MEDS: HYDROcodone-acetaminophen 5-325 mg Tablet 1 TAB PO (03:42)
[2020-09-08 04:14] VITALS: BP 118/89; PULSE 80; O2SAT 96
== END 2020-09-08 04:15 | disposition home or self-care (01) ==
PROVIDERS: Emergency Provider Emergency Medicine; PCP Family Medicine
DX: A49.02 Methicillin resistant Staphylococcus aureus infection, unspecified site (principal); S82.209A Unspecified fracture of shaft of unspecified tibia, initial encounter for closed fracture; S82.409A Unspecified fracture of shaft of unspecified fibula, initial encounter for closed fracture; V19.9XXA Pedal cyclist (driver) (passenger) injured in unspecified traffic accident, initial encounter
CPT/HCPCS: 99282

== ENCOUNTER 2020-09-14 13:59 | Outpatient (CLI) | payer SELFPAY | END 2020-09-14 14:00 | disposition home or self-care (01) | LOC: WOUND 13:59 | PROVIDERS: PCP Family Medicine; Visit Provider Surgery | DX: T81.31XA Disruption of external operation (surgical) wound, not elsewhere classified, initial encounter (principal); Y83.8 Other surgical procedures as the cause of abnormal reaction of the patient, or of later complication, without mention of misadventure at the time of the procedure | CPT/HCPCS: 99214 ==

== ENCOUNTER 2020-09-18 23:59 | Emergency (ER) | payer SELFPAY ==
--- NOTE | 2020-09-19 00:16 | XRR_ITS ---
PROCEDURE INFORMATION: Exam: XR Left Tibia and Fibula Exam date and time: 09/19/2020 12:16 AM Age: 50 years old Clinical indication: Other: Non healing incision site. ; Prior surgery; Surgery date: 1-6 months; Surgery type: Tibial fixation. ; Patient HX: Continued infection of tibial surgery incision site. ; Additional info: Injury TECHNIQUE: Imaging protocol: XR Left tibia and fibula. Views: 2 views. COMPARISON: CR XR tibia fibula LT 2V 35520 09/04/2020 2:40 PM FINDINGS: Bones/joints: Intact proximal tibial fixation hardware. The stable appearance of a comminuted proximal fibular fracture. Stable appearance of proximal tibial fracture. Pin tracks are present in the midshaft of the tibia. Soft tissues: No soft tissue gas. No periosteal elevation or bone destruction. XR/XR tibia fibula LT 2V 13020 IMPRESSION: No evidence of soft tissue infection or osteomyelitis. Stable appearance of tibial and fibular fractures with tibial fixation hardware.
[2020-09-19 00:45] VITALS: BP 133/82; PULSE 100; RESP 18; TEMP 36.3; O2SAT 98; BMI 25.8
== END 2020-09-19 03:27 ==
PROVIDERS: Emergency Provider Emergency Medicine; PCP Family Medicine
DX: M25.562 Pain in left knee (principal); Z53.21 Procedure and treatment not carried out due to patient leaving prior to being seen by health care provider
CPT/HCPCS: 73590; 99282

== ENCOUNTER 2020-09-19 20:55 | Emergency (ER) | payer SELFPAY ==
[2020-09-19 22:07] VITALS: BP 138/85; PULSE 100; RESP 16; TEMP 36.3; O2SAT 100; BMI 25.8
[2020-09-20 05:30] VITALS: BP 135/79; PULSE 98; RESP 16; O2SAT 100
[2020-09-20 05:54] LABS: Basophils # 0.1 10^3/uL (0.0-0.1); Basophils % 1.3 %; Eosinophils # 0.5 10^3/uL (0.0-0.8); Eosinophils % 6.1 %; Hemoglobin 12.6 g/dL (11.7-16.6); Lymphocytes # 2.3 10^3/uL (0.8-4.8); Lymphocytes % 25.7 %; Mean Corpuscular HGB Conc 34.1 g/dL (30.0-36.0); Mean Corpuscular Hemoglobin 31.6 pg (28.0-34.0); Mean Corpuscular Volume 92.7 fL (80-94); Mean Platelet Volume 11.4 fL (7.4-10.4); Monocytes # 1.4 10^3/uL (0.2-0.9); Monocytes % 15.6 %; Neutrophils # 4.46 10^3/uL (1.8-7.7); Nucleated Red Blood Cells % 0 %; Platelet Count 206 10^3/cmm (130-400); Red Blood Count 3.99 10^6/uL (4.1-5.3); Red Cell Distribution Width 12.5 % (12.1-15.1); White Blood Count 8.7 10^3/uL (4.0-10.0)
--- NOTE | 2020-09-20 06:11 | ED_ITS ---
HPI - Extremity Problem General: Chief complaint: Extremity Injury, Lower Stated complaint: LEFT LEG INJURY Time Seen by Provider: 09/20/20 05:15 History of Present Illness: HPI Narrative: This patient is a 50-year-old male with presents to the emergency department complaint of lower extremity pain. This patient has had a surgical wound to the left lower extremity that was also revised by orthopedics 1 and 1/2 weeks ago. Patient's initial injury was fract ure to the lower extremity that required plating by orthopedics. And subsequent wound infection. Patient was last seen by orthopedics Dr. Knutson on 09/04/2020. Patient presents to the emergency department for continued pain MD Complaint: extremity pain Onset (ago): week(s) Pain Consistency: constant Location: left and lower extremity Associated symptoms: Deny chest pain, fever(s) or rash Review of Systems General: Reports: 10 or more systems reviewed and unremarkable except in HPI and below Const: Denies: fever(s), chills, body aches or fatigue Eyes: Denies: change in vision or blurry vision ENMT: Denies: throat pain, hoarseness or mouth pain Card: Denies: chest pain, palpitations, irregular heart rhythm, edema, swelling of feet/ankles or lightheadedness Resp: Denies: dyspnea, productive cough, non-productive cough, wheezing or pain on inspiration GI: Denies: abdominal pain, nausea or vomiting : Denies: flank pain, dysuria, urinary frequency, urinary urgency or urinary hesitancy Musc: Reports: extremity pain; Denies: neck pain, back pain, extremity swelling, joint pain, joint swelling, joint redness, joint warmth or limited range of motion Skin/Breast: Denies: rash, pruritus, erythema or skin tenderness Neuro: Denies: headache(s), numbness in extremities or weakness in extremities Psych: Denies: anxiety or depression PFSH ED PFSH: Medical History No pertinent past medical history Surgical History History of ankle surgery Family History Other No pertinent family history Social History Alcohol intake: never Physical Exam Const: COMMON NORMALS: no acute distress, average body habitus, patient oriented x3, no limitations, healthy appearing, alert and well nourished HENMT: COMMON NORMALS: normocephalic, atraumatic, hearing grossly normal bilaterally, external ears normal, EAC's normal, TM's normal bilaterally, Normal external nose present, Normal nasal mucous membranes and turbinates present, moist oral mucous membranes, oropharynx normal, dentition normal and gingiva normal HEAD & SCALP: normocephalic and atraumatic NOSE: Normal external nose present and Normal nasal mucous membranes and turbinates present EXTERNAL EAR: Yes external ears normal EXTERNAL AUDITORY CANAL: EAC's normal TYMPANIC MEMBRANE: TM's normal bilaterally Neck/C-Spine: COMMON NORMALS: full ROM, no lymphadenopathy, supple, no meningeal signs, no JVD, Thyroid normal and No carotid bruits THYROID: Thyroid normal Chest: COMMONS NORMALS: normal inspection of the chest, normal palpation of entire chest wall, normal inspection of the breasts and normal palpation of the breasts Breast/axilla inspection: Yes normal inspection of the breasts BREAST/AXILLA PALPATION: Yes normal palpation of the breasts Resp: COMMON NORMALS: normal respiratory effort, No retractions, No use of accessory muscles, clear to auscultation bilaterally and percussion normal AUSCULTATION: clear to auscultation bilaterally PERCUSSION: percussion normal Cardio: COMMON NORMALS: no JVD, regular rate, regular rhythm, S1 normal heart sound present, S2 normal heart sound present, No gallops present (Cardio), No clicks present (Cardio), No murmurs present (Cardio), No rub (Cardio) and Peripheral pulses 2+ throughout RATE: regular rate RHYTHM: regular rhythm HEART SOUNDS: S1 normal heart sound present and S2 normal heart sound present PERIPHERAL PULSES: Peripheral pulses 2+ throughout GI: COMMON NORMALS: Normal to inspection, nondistended, normoactive bowel sounds present, Soft to palpation, non-tender, No hepatosplenomegaly present, no masses and no bruits PALPATION: Yes Soft to palpation and Yes No hepatosplenomegaly present : COMMON NORMALS: Yes no CVA tenderness BLADDER/KIDNEY EXAM: Yes no CVA tenderness Back/Pelvis: COMMON NORMALS: no CVA tenderness, thoracic and lumbar spine normal to inspection, no thoracic nor lumbar tenderness, thoraco-lumbar ROM normal and straight leg raise negative bilaterally Extremity: COMMON NORMALS: normal to inspection, full ROM, capillary refill normal, no joint enlargement, no clubbing, cyanosis or edema, no calf tenderness and no pedal edema NARRATIVE EXTREMITY EXAM: Patient is lower left leg surgical wounds are sutured in place with mild erythema. No significant drainage but did have some mild drainage. Wound appears to be stable. Neuro: COMMON NORMALS: patient oriented x3 SENSORIUM/ORIENTATION: Yes alert MENINGEAL SIGNS: Yes no meningeal signs Course Reevaluation(s): Reevaluation #1: No acute infection of the left lower extremity. Did discuss at length with patient about proper postoperative care. Patient is to continue all home medications and follow-up with Dr. Knutson for further evaluation and treatment. Patient is discharged home. Time: 06:44 Consultations: Consultation #1: I did discuss at length with Dr. Mancilla orthopedicleida. Did review patient's case with him. He advised patient okay to discharge home with follow-up with Dr. Knutson. Time: 06:44 Vital Signs: Vital signs: Vital Signs Temperature 97.3 F L 09/19/20 22:07 Pulse Rate 98 09/20/20 05:30 Respiratory Rate 16 09/20/20 05:30 Blood Pressure 135/79 09/20/20 05:30 Pulse Oximetry 100 09/20/20 05:30 MDM - Extremity (Nontraumatic) MDM Narrative: Medical decision making narrative: This patient is a 50-year-old male with presents to the emergency department complaint of lower extremity pain. This patient has had a surgical wound to the left lower extremity that was also revised by orthopedics 1 and 1/2 weeks ago. Patient's initial injury was fracture to the lower extremity that required plating by orthopedics. And subsequent wound infection. Patient was last seen by orthopedics Dr. Knutson on 09/04/2020. Patient presents to the emergency department for continued pain No acute infection of the left lower extremity. Did discuss at length with patient about proper postoperative care. Patient is to continue all home medications and follow-up with Dr. Knutson for further evaluation and treatment. Patient is discharged home. I did discuss at length with Dr. Mancilla orthopedicleida. Did review patient's case with him. He advised patient okay to discharge home with follow-up with Dr. Knutson. Lab Data: Labs: Lab Results 09/20/20 09/20/20 Range/Units 05:45 05:45 WBC 8.7 (4.0-10.0) 10^3/ uL RBC 3.99 L (4.1-5.3) 10^6/u L Hgb 12.6 (11.7-16.6) g/dL Hct 37.0 L (42.0-52.0) % MCV 92.7 (80-94) fL MCH 31.6 (28.0-34.0) pg MCHC 34.1 (30.0-36.0) g/dL RDW 12.5 (12.1-15.1) % Plt Count 206 (130-400) 10^3/c mm MPV 11.4 H (7.4-10.4) fL Neut % (Auto) 51.0 % Lymph % (Auto) 25.7 % [place] % (Auto) 15.6 % Eos % (Auto) 6.1 % Baso % (Auto) 1.3 % Neut # (Auto) 4.46 (1.8-7.7) 10^3/u L Lymph # (Auto) 2.3 (0.8-4.8) 10^3/u L [place] # (Auto) 1.4 H (0.2-0.9) 10^3/u L Eos # (Auto) 0.5 (0.0-0.8) 10^3/u L Baso # (Auto) 0.1 (0.0-0.1) 10^3/u L Nucleated RBC % (a uto) 0 % Nucleated RBCs # 0.0 /100WBC Sodium 133 L (136-145) mmol/L Potassium 3.8 (3.5-5.1) mmol/L Chloride 101 (98-107) mmol/L Carbon Dioxide 22 (22-29) mmol/L Anion Gap 13.8 (5-19) BUN 9 (6-20) mg/dL Creatinine 0.6 L (0.7-1.2) mg/dL GFR Calculation 143.8 H (90-130) mL/min Glucose 96 (65-115) mg/dL Calculated Osmolal ity 275 L (285-295) mOsm/k g Calcium 8.5 (8.5-10.5) mg/dL Total Bilirubin 0.4 (0.15-1.2) mg/dL AST 35 (0-40) U/L ALT 51 H (0-41) U/L Alkaline Phosphata se 86 (40-130) IU/L Total Protein 7.6 (6.6-8.7) g/dL Albumin 3.6 (3.5-5.2) g/dL Globulin 4.0 (1.3-4.6) g/dL Discharge Plan Discharge Patient Disposition: Home Clinical Impression: Leg pain, Visit for wound check Condition: Stable Prescriptions: No Action (DME) Diabetic shoes See Rx Instructions .Route .MEDSUPPLY Qty: 1 RF: 0 (DME) WHEEL CHAIR WITH LEG ELEVATORS See Rx Instructions .ROUTE .MEDSUPPLY Qty: 1 RF: 0 sulfamethoxazole-trimethoprim [Bactrim DS] 800-160 mg tablet 1 tab PO Q12H Qty: 20 RF: 0 nicotine 21 mg/24 hr Patch 24 Hour 1 patch transdermal DAILY 30 Days Qty: 30 RF: 0 bisacodyl 5 mg Tablet,Delayed Release (Dr/Ec) 10 mg PO DAILY PRN (Reason: Constipation (see protocol)) 30 Days Qty: 30 RF: 0 vancomycin 1,000 mg recon soln 1,000 mg IV Q8H 38 Days Qty: 10 RF: 0 Lovenox 40 mg/0.4 mL syringe 40 mg SUBCUT DAILY 30 Days Qty: 4 RF: 0 aspirin 81 mg Tablet,Delayed Release (Dr/Ec) 81 mg PO DAILY Qty: 30 RF: 0 nitroglycerin 0.4 mg Tablet, Sublingual 0.4 mg sublingual Q5M PRN (Reason: Chest Pain) Qty: 30 RF: 0 furosemide [Lasix] 40 mg tablet 40 mg PO QAM Qty: 30 RF: 0 hydrocodone-acetaminophen 5-325 mg tablet 1 tab PO Q6H PRN (Reason: pain) Qty: 8 RF: 0 Discharge Orders: Discharge ED (Routine); Ordered 09/20/20 Ordered By: Robert Hernandez Referrals: Jacquelyn Brown DO [Primary Care Provider] - Discharge Diet: Advance as tolerated Discharge Activity: Resume usual activity Patient Instructions: Opioid Safety Activity Restrictions/Additional Instructions: Continue all current postoperative care. You must follow-up with Dr. Knutson or your primary care physician for any additional evaluation and pain medications. Continue wound care as instructed by Dr. Knutson. May take Tylenol Motrin as needed for pain. Watch closely for signs of infection. 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
[2020-09-20 06:21] LABS: Alanine Aminotransferase 51 U/L (0-41); Albumin Level 3.6 g/dL (3.5-5.2); Alkaline Phosphatase 86 IU/L (40-130); Aspartate Amino Transferase 35 U/L (0-40); Blood Urea Nitrogen 9 mg/dL (6-20); Calcium 8.5 mg/dL (8.5-10.5); Carbon Dioxide 22 mmol/L (22-29); Chloride 101 mmol/L (98-107); Glomerular Filtration Rate 143.8 mL/min (90-130); Glucose 96 mg/dL (65-115); Osmolality Calculated 275 mOsm/kg (285-295); Sodium 133 mmol/L (136-145); Total Bilirubin 0.4 mg/dL (0.15-1.2); Total Protein 7.6 g/dL (6.6-8.7)
[2020-09-20 06:23] LABS: Anion Gap 13.8 (5-19); Potassium 3.8 mmol/L (3.5-5.1)
== END 2020-09-20 07:20 | disposition home or self-care (01) ==
PROVIDERS: Emergency Medicine; Emergency Provider Emergency Medicine; PCP Family Medicine
DX: M79.662 Pain in left lower leg (principal)
CPT/HCPCS: 80053; 85025; 99282

== ENCOUNTER → 2020-09-20 08:04 | Outpatient (BNVA) | payer SELFPAY | PROVIDERS: PCP Family Medicine; Visit Provider Orthopaedic Surgery | DX: Z47.89 Encounter for other orthopedic aftercare (principal); S82.209D Unspecified fracture of shaft of unspecified tibia, subsequent encounter for closed fracture with routine healing; S82.409D Unspecified fracture of shaft of unspecified fibula, subsequent encounter for closed fracture with routine healing; X58.XXXD Exposure to other specified factors, subsequent encounter | CPT/HCPCS: 73562 ==

== ENCOUNTER 2020-09-20 08:45 | Emergency (ER) | payer SELFPAY ==
--- NOTE | 2020-09-20 10:57 | XR_ITS ---
WS: [id number] XR chest 1V portable [id number] REASON FOR EXAM: admission/surgical clearance FINDINGS: Mild tortuosity thoracic aorta without aneurysmal dilatation. Normal heart size. Calcified granulomatous changes in both hemithoraces. No active pulmonary parenchymal pleural disease . Mild degenerative changes in the mid and lower thoracic spine. Bony thorax otherwise intact. XR/XR chest 1V portable [id number] IMPRESSION: No significant chest abnormality.
[2020-09-20 12:29] VITALS: BP 166/82; PULSE 90; RESP 18; TEMP 36.3; O2SAT 96
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
--- NOTE | 2020-09-20 12:52 | PC.NURSE ---
Applied new raghav wrap and roll gauze to wounds on lower left leg.
--- NOTE | 2020-09-20 13:30 | PC.PHAR ---
PT STATES HE DOESN'T TAKE ANY PRESCRIPTIONS AT ALL. IT LEFT A COUPLE IN THAT HE WAS ON BEFORE. PHARMACIES STATE THE HE DID NOT REJECT OPENER ANY PRESCRIPTIONS IN THE LAST MONTH.
[2020-09-20] MEDS: clindamycin 150 mg/mL SDV 6 mL 600 MG IM (13:38)
[2020-09-20 14:23] VITALS: BP 142/82; PULSE 75; RESP 16; O2SAT 98
== END 2020-09-20 14:03 | disposition home or self-care (01) ==
PROVIDERS: Emergency Provider Physician Assistant; PCP Family Medicine
DX: T81.43XA Infection following a procedure, organ and space surgical site, initial encounter (principal); L08.9 Local infection of the skin and subcutaneous tissue, unspecified; Y83.8 Other surgical procedures as the cause of abnormal reaction of the patient, or of later complication, without mention of misadventure at the time of the procedure
CPT/HCPCS: 71045; 96372; 99283; J3490

== ENCOUNTER 2020-09-21 10:23 | Emergency (ER) | payer SELFPAY ==
[2020-09-21 10:57] VITALS: PULSE 88; RESP 16; TEMP 36.7; O2SAT 97; BMI 26.5
[2020-09-21 11:02] VITALS: BP 131/88; PULSE 103; O2SAT 100
--- NOTE | 2020-09-21 12:17 | XR_ITS ---
WS: [id number] XR knee LT 3V* [id number] REASON FOR EXAM: knee pain FINDINGS: The examination is unchanged compared to the previous day. Complex plate and screw fixation of proximal tibial fracture. Comminuted fibular fracture. Small knee joint effusion. XR/XR knee LT 3V* [id number] IMPRESSION: Complex fracture with no change compared to the previous day.
--- NOTE | 2020-09-21 12:39 | W.ED.EXTPRO ---
HPI - Extremity Problem General: Chief complaint: Extremity Injury, Lower Stated complaint: WANTS TO BE ADMITTED/ POISON CONSUELO Time Seen by Provider: 09/21/20 10:27 History of Present Illness: HPI Narrative: 50/-year-old male presents emergency room he previously had a tibial plateau fracture which was initially treated with ORIF on August 06. He returned to the operating room on 08/20 of this year for a incision and drainage. He continues to have dehiscence of wounds. Sutures in place yet from the 08/20 procedure. He has purulent drainage from both the medial and lateral wounds. He been following with Dr. Knutson. He had a PICC line at 1 point he is not currently on any antibiotics.He was here yesterday with Dr. Knutson had sent him to the ER to be admitted for incision and drainage there is some difficulty with making arrangements and he was discharged from the ER.. There is difficulty with making arrangements and the on-call orthopedic physician recommended to be discharged for outpatient follow-up. Spent a lot of difficulty with social issues complicating the care since patient is homeless. At the time of discharge yesterday he was given IM clindamycin and discharged with oral Bactrim. MD Complaint: joint swelling and joint pain Onset (ago): week(s) Pain Consistency: constant Location: left Quality: aching Radiation: none Relieving factors: nothing Exacerbating factors: nothing Associated symptoms: Reports arthralgias; Deny chest pain, fever(s) or rash Context: recent surgery/procedure Review of Systems Const: Denies: fever(s), chills, body aches, change in appetite, fatigue or malaise ENMT: Denies: throat pain, ear or mastoid pain, nasal discharge or nasal congestion Card: Denies: chest pain, edema, dyspnea on exertion or orthopnea Resp: Denies: dyspnea, productive cough or non-productive cough GI: Denies: abdominal pain, nausea, vomiting, hematemesis, coffee ground emesis, diarrhea, constipation, bloating, hematochezia or melena : Denies: flank pain, dysuria, urinary frequency or urinary urgency Skin/Breast: Denies: rash or pruritus PFSH ED PFSH: Medical History No pertinent past medical history Surgical History History of ankle surgery Family History Other No pertinent family history Social History Smoking and tobacco status: current every day smoker cigarettes Alcohol intake: never Physical Exam Const: COMMON NORMALS: no acute distress GENERAL APPEARANCE: cooperative and comfortable ORIENTATION/CONSCIOUSNESS: Yes oriented to person, Yes oriented to place and Yes oriented to time HENMT: COMMON NORMALS: normocephalic, atraumatic and hearing grossly normal bilaterally HEAD & SCALP: normocephalic and atraumatic Neck/C-Spine: COMMON NORMALS: no JVD Resp: COMMON NORMALS: normal respiratory effort, No retractions, No use of accessory muscles and clear to auscultation bilaterally AUSCULTATION: clear to auscultation bilaterally Cardio: COMMON NORMALS: no JVD, regular rate, regular rhythm and No murmurs present (Cardio) RATE: regular rate RHYTHM: regular rhythm GI: COMMON NORMALS: Soft to palpation and No hepatosplenomegaly present AUSCULTATION: Yes normoactive bowel sounds PALPATION: Yes Soft to palpation, No Tenderness to palpation present (GI), No Guarding due to palpation present (GI) and Yes No hepatosplenomegaly present Extremity: COMMON NORMALS: normal to inspection, capillary refill normal, no clubbing, cyanosis or edema, no calf tenderness and no pedal edema Neuro: SENSORIUM/ORIENTATION: Yes oriented to person, Yes oriented to place and Yes oriented to time Skin: NARRATIVE SKIN EXAM: Tach dermatitis the medial aspect of the forearms no evidence of Sue dermatitis no bulla no sign of infection. Course Vital Signs: Vital signs: Vital Signs Temperature 98.1 F 09/21/20 10:57 Pulse Rate 93 09/21/20 15:10 Respiratory Rate 15 09/21/20 15:10 Blood Pressure 115/63 09/21/20 15:10 Pulse Oximetry 99 09/21/20 15:10 MDM - Extremity (Nontraumatic) MDM Narrative: Medical decision making narrative: Time of discharge patient is complaining of a rash on the inside of his forearms appears to have mild contact dermatitis. He is worried it is related to poison consuelo he has none on his hands. Recommend that he apply topical hydrocortisone 3-4 times a day for this. Would not recommend systemic steroids he was adamant about a systemic steroids to the point of yelling at me and nurse. Unopposed systemic steroids because of the problem with his legs could actually decrease healing and increases infection problem. Topical steroids will be adequate for the rash she has present. Lab Data: Labs: Lab Results 09/21/20 09/21/20 09/21/20 Range/Units 12:28 12:45 12:45 WBC 6.9 (4.0-10.0) 10^3/ uL RBC 4.18 (4.1-5.3) 10^6/u L Hgb 12.9 (11.7-16.6) g/dL Hct 38.9 L (42.0-52.0) % MCV 93.1 (80-94) fL MCH 30.9 (28.0-34.0) pg MCHC 33.2 (30.0-36.0) g/dL RDW 12.6 (12.1-15.1) % Plt Count 233 (130-400) 10^3/c mm MPV 12.1 H (7.4-10.4) fL Neut % (Auto) 48.0 % Lymph % (Auto) 26.1 % [place] % (Auto) 15.6 % Eos % (Auto) 8.9 % Baso % (Auto) 1.3 % Neut # (Auto) 3.28 (1.8-7.7) 10^3/u L Lymph # (Auto) 1.8 (0.8-4.8) 10^3/u L [place] # (Auto) 1.1 H (0.2-0.9) 10^3/u L Eos # (Auto) 0.6 (0.0-0.8) 10^3/u L Baso # (Auto) 0.1 (0.0-0.1) 10^3/u L Nucleated RBC % (a uto) 0 % Nucleated RBCs # 0.0 /100WBC Specimen Type Arterial Sample Site Radial, left ABG pH 7.48 H (7.35-7.45) ABG pCO2 33.7 L (35-45) mmHg ABG pO2 88.3 (80.0-100.0) mmH g ABG HCO3 25.1 (22-26) mmol/L ABG O2 Saturation 98.4 ABG Base Excess 1.9 (-2.0-2.0) mmol/ L Deandre Test Pos A-a O2 Gradient 2.5 L (5-10) mmHg Hematocrit 40.9 L (42-52) % Hgb O2 Saturation 96.5 (95-100) % Carboxyhemoglobin 1.3 (0.4-20.1) %THgb Methemoglobin 0.6 (0.4-1.5) % Total Hemoglobin 13.3 L (14-18) g/dL Sodium 138.0 Cancelled (131-143) mmol/L Potassium 3.6 Cancelled (3.5-5.0) mmol/L Glucose 113.0 Cancelled (70-115) mg/dL Ionized Calcium 1.2 (1.1-1.4) mmol/L O2 Delivery Device Room air Vacuum Furnace Operator ID [id number] Chloride Cancelled Carbon Dioxide Cancelled Anion Gap Cancelled BUN Cancelled Creatinine Cancelled GFR Calculation Cancelled Calculated Osmolal ity Cancelled Calcium Cancelled Total Bilirubin Cancelled AST Cancelled ALT Cancelled Alkaline Phosphata se Cancelled Total Protein Cancelled Albumin Cancelled Globulin Cancelled 09/21/20 Range/Units 13:34 WBC (4.0-10.0) 10^3/ uL RBC (4.1-5.3) 10^6/u L Hgb (11.7-16.6) g/dL Hct (42.0-52.0) % MCV (80-94) fL MCH (28.0-34.0) pg MCHC (30.0-36.0) g/dL RDW (12.1-15.1) % Plt Count (130-400) 10^3/c mm MPV (7.4-10.4) fL Neut % (Auto) % Lymph % (Auto) % [place] % (Auto) % Eos % (Auto) % Baso % (Auto) % Neut # (Auto) (1.8-7.7) 10^3/u L Lymph # (Auto) (0.8-4.8) 10^3/u L [place] # (Auto) (0.2-0.9) 10^3/u L Eos # (Auto) (0.0-0.8) 10^3/u L Baso # (Auto) (0.0-0.1) 10^3/u L Nucleated RBC % (a uto) % Nucleated RBCs # /100WBC Specimen Type Sample Site ABG pH (7.35-7.45) ABG pCO2 (35-45) mmHg ABG pO2 (80.0-100.0) mmH g ABG HCO3 (22-26) mmol/L ABG O2 Saturation ABG Base Excess (-2.0-2.0) mmol/ L Deandre Test A-a O2 Gradient (5-10) mmHg Hematocrit (42-52) % Hgb O2 Saturation (95-100) % Carboxyhemoglobin (0.4-20.1) %THgb Methemoglobin (0.4-1.5) % Total Hemoglobin (14-18) g/dL Sodium 136 (131-143) mmol/L Potassium 3.9 (3.5-5.0) mmol/L Glucose 94 (70-115) mg/dL Ionized Calcium (1.1-1.4) mmol/L O2 Delivery Device Vacuum Furnace Operator ID Chloride [id number] Carbon Dioxide 25 Anion Gap 12.9 BUN 9 Creatinine 0.7 GFR Calculation 120.4 Calculated Osmolal ity 280 L Calcium 8.2 L Total Bilirubin 0.2 AST 36 ALT 51 H Alkaline Phosphata se 85 Total Protein 7.7 Albumin 3.3 L Globulin 4.4 Discharge Plan Discharge Patient Disposition: Home Clinical Impression: Cellulitis, Tibial plateau fracture, left, Contact dermatitis Condition: Stable Prescriptions: New tramadol 50 mg tablet 50 mg PO Q6H PRN (Reason: pain) Qty: 14 RF: 0 No Action (DME) Diabetic shoes See Rx Instructions .Route .MEDSUPPLY Qty: 1 RF: 0 (DME) WHEEL CHAIR WITH LEG ELEVATORS See Rx Instructions .ROUTE .MEDSUPPLY Qty: 1 RF: 0 nitroglycerin 0.4 mg Tablet, Sublingual 0.4 mg sublingual Q5M PRN (Reason: Chest Pain) Qty: 30 RF: 0 sulfamethoxazole-trimethoprim [Bactrim DS] 800-160 mg tablet 2 tab PO BID 7 Days Qty: 28 RF: 0 Discharge Orders: Discharge ED (Routine); Ordered 09/21/20 Ordered By: Steve Nielson Referrals: Jacquelyn Brown DO [Primary Care Provider] - Patient Instructions: Opioid Safety Activity Restrictions/Additional Instructions: Follow-up with Dr. Knutson within the week. Antibiotics were given to yesterday continue those for now. Further evaluation and treatment per Dr. Knutson and follow-up Coding Level of Care Code ED Grades 1 Thru 5 Teacher for Chg Fwd Exam Comprehensive
[2020-09-21 12:40] LABS: ABG PCO2 33.7 mmHg (35-45); ABG PH Result 7.48 (7.35-7.45); Alveolar-Arterial Oxygen Gradi 2.5 mmHg (5-10); Arterial Blood Gas Hematocrit 40.9 % (42-52); Base Excess ABG 1.9 mmol/L (-2.0-2.0); Blood Gas Allen Test Pos; Blood Gas Operator Identificat N; Blood Gas Sample Site Radial, left; Blood Gas Sample Type Arterial; Carboxyhemoglobin 1.3 %THgb (0.4-20.1); HCO3 ABG 25.1 mmol/L (22-26); HGB O2 Sat 96.5 % (95-100); Ionized Calcium Level - ABG 1.2 mmol/L (1.1-1.4); Methemoglobin 0.6 % (0.4-1.5); Oxygen Device ROOM AIR; Oxygen Saturation ABG 98.4; PO2 ABG 88.3 mmHg (80.0-100.0); Potassium Level - ABG 3.6 mmol/L (3.5-5.0); Total Hemoglobin 13.3 g/dL (14-18)
[2020-09-21 13:02] VITALS: BP 115/78; PULSE 78; RESP 15; O2SAT 97
[2020-09-21 13:09] LABS: Basophils # 0.1 10^3/uL (0.0-0.1); Basophils % 1.3 %; Eosinophils # 0.6 10^3/uL (0.0-0.8); Eosinophils % 8.9 %; Hematocrit 38.9 % (42.0-52.0); Hemoglobin 12.9 g/dL (11.7-16.6); Lymphocytes # 1.8 10^3/uL (0.8-4.8); Lymphocytes % 26.1 %; Mean Corpuscular HGB Conc 33.2 g/dL (30.0-36.0); Mean Corpuscular Hemoglobin 30.9 pg (28.0-34.0); Mean Corpuscular Volume 93.1 fL (80-94); Mean Platelet Volume 12.1 fL (7.4-10.4); Monocytes # 1.1 10^3/uL (0.2-0.9); Monocytes % 15.6 %; Neutrophils # 3.28 10^3/uL (1.8-7.7); Nucleated Red Blood Cells % 0 %; Platelet Count 233 10^3/cmm (130-400); Red Blood Count 4.18 10^6/uL (4.1-5.3); Red Cell Distribution Width 12.6 % (12.1-15.1); White Blood Count 6.9 10^3/uL (4.0-10.0)
[2020-09-21 14:04] LABS: Alanine Aminotransferase 51 U/L (0-41); Albumin Level 3.3 g/dL (3.5-5.2); Alkaline Phosphatase 85 IU/L (40-130); Anion Gap 12.9 (5-19); Aspartate Amino Transferase 36 U/L (0-40); Blood Urea Nitrogen 9 mg/dL (6-20); Calcium 8.2 mg/dL (8.5-10.5); Carbon Dioxide 25 mmol/L (22-29); Chloride 102 mmol/L (98-107); Globulin 4.4 g/dL (1.3-4.6); Glomerular Filtration Rate 120.4 mL/min (90-130); Glucose 94 mg/dL (65-115); Osmolality Calculated 280 mOsm/kg (285-295); Potassium 3.9 mmol/L (3.5-5.1); Sodium 136 mmol/L (136-145); Total Bilirubin 0.2 mg/dL (0.15-1.2); Total Protein 7.7 g/dL (6.6-8.7)
[2020-09-21 15:00] VITALS: BP 115/63; PULSE 93; RESP 15; O2SAT 99
[2020-09-21 15:10] VITALS: BP 115/63; PULSE 93; RESP 15; O2SAT 99
== END 2020-09-21 15:11 | disposition home or self-care (01) ==
PROVIDERS: Emergency Provider Family Medicine; PCP Family Medicine
DX: L03.116 Cellulitis of left lower limb (principal); L25.9 Unspecified contact dermatitis, unspecified cause; Z59.0 Homelessness; Z87.81 Personal history of (healed) traumatic fracture
CPT/HCPCS: 36600; 73562; 80051; 80053; 82330; 82805; 85025; 87040; 99283

== ENCOUNTER 2020-10-10 03:42 | Emergency (ER) | payer MEDICAID, SELFPAY ==
[2020-10-10 04:03] VITALS: BP 121/91; PULSE 93; RESP 16; TEMP 36.7; O2SAT 100; BMI 25.8
[2020-10-10 04:05] VITALS: PULSE 92; RESP 18; O2SAT 100
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
[2020-10-10] MEDS: HYDROcodone-acetaminophen 10-325 mg Tablet 1 TAB PO (04:32)
== END 2020-10-10 04:35 | disposition home or self-care (01) ==
PROVIDERS: Emergency Provider Emergency Medicine; PCP Family Medicine
DX: M79.605 Pain in left leg (principal)
CPT/HCPCS: 99283

== ENCOUNTER → 2020-11-06 11:26 | Outpatient (BNVA) | payer MEDICAID, SELFPAY | PROVIDERS: PCP Family Medicine; Visit Provider Orthopaedic Surgery | DX: S89.092A Other physeal fracture of upper end of left tibia, initial encounter for closed fracture (principal); S89.292A Other physeal fracture of upper end of left fibula, initial encounter for closed fracture; X58.XXXA Exposure to other specified factors, initial encounter | CPT/HCPCS: 73590 ==

== ENCOUNTER → 2020-12-18 08:50 | Outpatient (BNVA) | payer MEDICAID, SELFPAY | PROVIDERS: PCP Family Medicine; Visit Provider Physician Assistant | DX: S82.202D Unspecified fracture of shaft of left tibia, subsequent encounter for closed fracture with routine healing (principal); X58.XXXD Exposure to other specified factors, subsequent encounter; Z48.89 Encounter for other specified surgical aftercare | CPT/HCPCS: 73560 ==

== ENCOUNTER 2020-12-22 21:21 | Emergency (ER) | payer MEDICAID, SELFPAY ==
[2020-12-22 21:25] VITALS: BP 132/94; PULSE 103; RESP 18; TEMP 36.7; O2SAT 100; BMI 26.5
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
[2020-12-22 22:24] VITALS: PULSE 102
[2020-12-22 22:39] VITALS: RESP 20
[2020-12-22] MEDS: oxyCODONE-APAP 5-325 mg Tablet 2 TAB PO (22:39)
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
== END 2020-12-22 23:41 | disposition home or self-care (01) ==
PROVIDERS: Emergency Provider Emergency Medicine; PCP Family Medicine
DX: S89.92XA Unspecified injury of left lower leg, initial encounter (principal); S82.142G Displaced bicondylar fracture of left tibia, subsequent encounter for closed fracture with delayed healing; L03.116 Cellulitis of left lower limb; V19.9XXA Pedal cyclist (driver) (passenger) injured in unspecified traffic accident, initial encounter
CPT/HCPCS: 73562; 73590; 99283

== ENCOUNTER 2020-12-27 05:12 | Emergency (ER) | payer MEDICAID, SELFPAY ==
[2020-12-27 05:20] VITALS: BP 109/65; PULSE 98; RESP 16; TEMP 36.4; O2SAT 99; BMI 22.9
--- NOTE | 2020-12-27 05:33 | XRR_ITS ---
PROCEDURE INFORMATION: Exam: XR Left Tibia and Fibula Exam date and time: 12/27/2020 5:33 AM Age: 50 years old Clinical indication: Pain; Edema and swelling, leg or foot; No, it is generalized; Prior surgery; Surgery type: Tibial fixation. ; Patient HX: Swelling of left lower leg with abscess formation anterio lateral aspect of region of fibular fracture. TECHNIQUE: Imaging protocol: XR Left tibia and fibula. Views: 2 views. Total images: 3 COMPARISON: CR (LOW EXM, ) 12/22/2020 10:29 PM FINDINGS: Bones/joints: Status post open reduction internal fixation of proximal comminuted tibial fracture without complication. Healing comminuted proximal left fibular fracture unchanged. No additional fracture, subluxation, or dislocation detected. Soft tissues: Circumferential soft tissue swelling is evident similar to prior exam. XR/XR tibia fibula LT 2V [id number] IMPRESSION: 1. Status post open reduction internal fixation of proximal comminuted tibial fracture without complication. 2. Healing comminuted proximal left fibular fracture unchanged. 3. Circumferential soft tissue swelling is evident similar to prior exam. Radiation Dose CTDIVOL = (mGy): DLP = (mGy-cm)
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
[2020-12-27] MEDS: cefTRIAXone 1,000 MG in lidocaine 1% 2.1 ML 1 MG IM (05:53)
[2020-12-27 05:55] VITALS: PULSE 80
[2020-12-27] MEDS: HYDROcodone-acetaminophen 5-325 mg Tablet 1 TAB PO (06:06)
[2020-12-27 06:23] VITALS: BP 121/77; PULSE 77; RESP 18; O2SAT 99
== END 2020-12-27 06:15 | disposition home or self-care (01) ==
PROVIDERS: Emergency Provider Emergency Medicine; PCP Family Medicine
DX: M79.605 Pain in left leg (principal); L03.116 Cellulitis of left lower limb; Z79.891 Long term (current) use of opiate analgesic
CPT/HCPCS: 73590; 96372; 99283; J0696

== ENCOUNTER 2020-12-30 20:30 | Inpatient (IN) | payer MEDICAID, SELFPAY ==
[2020-12-30 20:35] VITALS: BP 151/78; PULSE 105; RESP 18; TEMP 37.1; O2SAT 99; BMI 22.9
[2020-12-30 21:14] VITALS: PULSE 100
[2020-12-30 21:18] VITALS: BP 145/76; PULSE 100; RESP 19; O2SAT 98
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
--- NOTE | 2020-12-30 21:36 | W.ED.GENADLT ---
Documented by User: Ngozi Cabezas MD 01/09/21 23:46 HPI - General Adult General: Chief complaint: Extremity Problem,Nontraumatic Stated complaint: left leg pain Time Seen by Provider: 12/30/20 21:00 History of Present Illness: HPI narrative: Patient is a 50-year-old male with a history of hypertension, hepatitis C who presents the emergency room with persistence and worsening of the left lower extremity swelling and erythema. This is the patient's third visit to the emergency room for left lower extremity swelling and pain. Patient states that she has had subjective fever, has been unable to bear weight on the left foot. Patient completed a course of Bactrim and a course of Keflex without significant improvement in symptoms. Patient presents the emergency room for worsening pain. Onset:12/22 Duration:8 days Location:home Severity:moderate Review of Systems Narrative: Constitutional: No fever, no chills. HEENT: No vision changes CV: No chest pain, no palpitations PULM: no cough, no dyspnea. GI: No abdominal pain, no N/V/D. : No dysuria MSKEL: No muscle pain SKIN:+LLE swelling/erythema/pain NEURO: No headache, no focal weakness. HEME: No visible bruises PSYCH: Normal mood PFSH ED PFSH: Medical History No pertinent past medical history Surgical History History of ankle surgery Family History Other No pertinent family history Social History Smoking and tobacco status: never smoked Alcohol intake: never Physical Exam Narrative: EXAM NARRATIVE: Head: Atraumatic Eyes: PERRL, conjunctiva without injection ENT: Mucous membrane moist NECK: Supple, ROM intact LUNGS: LCTAB, no crackles/rhonchi CV: RRR ABDOMEN: Soft, nontender in all quadrants EXTREMITY: Range of motion of left lower extremity intact, 2+ DP/PT pulses on the left side, neurovascular exam intact, +no crepitus, no pain on proportion to physical exam SKIN:+ Left lower extremity edema, erythema, warmth to palpation, no crepitus, no pain on proportion to physical exam, NEURO: Awake and alert, no focal motor deficits PSYCH: Normal mood and affect Course Vital Signs: Vital signs: Vital Signs Temperature 97.6 F 01/02/21 11:29 Pulse Rate 88 01/02/21 11:29 Respiratory Rate 16 01/02/21 11:29 Blood Pressure 122/76 01/02/21 11:29 Pulse Oximetry 99 01/02/21 11:29 MDM - General Adult MDM Narrative: Medical decision making narrative: 50-year-old male with history of ongoing cellulitis x8 days presenting to the emergency room despite multiple rounds of antibiotics. On exam, patient has swollen left lower extremity with warmth to touch and erythema. No suspicion for necrotizing soft tissue at this time given duration of symptoms. Workup: CBC, BMP, CRP, ESR, XR leg, blood culture, lactic acid Given vancomycin and ceftriaxone Will be admitted to hospital for further evaluation of cellulitis and failure of outpatient treatment. Dispositoin: Admission Lab Data: Labs: Lab Results 12/30/20 12/30/20 12/30/20 12:30 21:44 21:44 WBC 6.9 10^3/uL 10^3/ uL (4.0-10.0) RBC 3.87 10^6/uL L 10 ^6/uL (4.1-5.3) Hgb 11.7 g/dL g/dL (11.7-16.6) Hct 34.9 % L % (42.0-52.0) MCV 90.2 fl fl (80-94) MCH 30.2 pg pg (28.0-34.0) MCHC 33.5 g/dL g/dL (30.0-36.0) RDW 13.5 % % (12.1-15.1) Plt Count 221 10^3/cmm 10^3 /cmm (130-400) MPV 11.8 fL H fL (7.4-10.4) Neut % (Auto) 48.2 % % Lymph % (Auto) 29.1 % % L[place]kin % (Auto) 16.6 % % Eos % (Auto) 4.8 % % Baso % (Auto) 1.0 % % Neut # (Auto) 3.33 10^3/uL 10^3 /uL (1.8-7.7) Lymph # (Auto) 2.0 10^3/uL 10^3/ uL (0.8-4.8) [place] # (Auto) 1.2 10^3/uL H 10^ 3/uL (0.2-0.9) Eos # (Auto) 0.3 10^3/uL 10^3/ uL (0.0-0.8) Baso # (Auto) 0.1 10^3/uL 10^3/ uL (0.0-0.1) Nucleated RBC % (a uto) 0 % % Nucleated RBCs # 0.0 /100WBC /100W BC ESR 19 mm/hr H mm/hr (0-10) PT INR APTT Sodium 137 mmol/L mmol/L (136-145) Potassium 3.9 mmol/L mmol/L (3.5-5.1) Chloride 104 mmol/L mmol/L (98-107) Carbon Dioxide 22 mmol/L mmol/L (22-29) Anion Gap 14.9 (5-19) BUN 15 mg/dL mg/dL (6-20) Creatinine 0.7 mg/dL mg/dL (0.7-1.2) GFR Calculation 120.4 mL/min mL/m in (90-130) Glucose 95 mg/dL mg/dL (65-115) Calculated Osmolal ity 285 mOsm/kg mOsm/ kg (285-295) Lactate Calcium 8.4 mg/dL L mg/dL (8.5-10.5) C-Reactive Protein 12.3 mg/L H mg/L (0.0-4.9) 12/30/20 12/30/20 21:44 21:44 WBC RBC Hgb Hct MCV MCH MCHC RDW Plt Count MPV Neut % (Auto) Lymph % (Auto) [place]kin % (Auto) Eos % (Auto) Baso % (Auto) Neut # (Auto) Lymph # (Auto) [place]kin # (Auto) Eos # (Auto) Baso # (Auto) Nucleated RBC % (a uto) Nucleated RBCs # ESR PT 14.20 SECONDS SEC ONDS (12.1-14.9) INR 1.06 (0.8-1.2) APTT 32.6 SECONDS SECO NDS (23.9-36.7) Sodium Potassium Chloride Carbon Dioxide Anion Gap BUN Creatinine GFR Calculation Glucose Calculated Osmolal ity Lactate 1.4 mmol/L mmol/L (0.5-2.2) Calcium C-Reactive Protein Discharge Plan Discharge Patient Disposition: Admitted As Inpatient Admit Provider: Zheng Palomino Clinical Impression: Cellulitis, Failure of outpatient treatment Condition: Stable Discharge Diet: Regular Discharge Activity: Increase activity as tolerated Coding Level of Care Code ED Educational Technology Coordinator for Chg Fwd Documented by User: Luis Tate DO 12/30/20 23:20 HPI - General Adult General: Chief complaint: Extremity Problem,Nontraumatic Stated complaint: left leg pain Time Seen by Provider: 12/30/20 21:00 [facility] ED PFSH: Medical History No pertinent past medical history Surgical History History of ankle surgery Family History Other No pertinent family history Social History Smoking and tobacco status: never smoked Alcohol intake: never Course Consultations: Consultation #1: silvia Vital Signs: Vital signs: Vital Signs Temperature 97.6 F 01/02/21 11:29 Pulse Rate 88 01/02/21 11:29 Respiratory Rate 16 01/02/21 11:29 Blood Pressure 122/76 01/02/21 11:29 Pulse Oximetry 99 01/02/21 11:29 MDM - General Adult MDM Narrative: Medical decision making narrative: Received in checkout from Dr. Mcmillan at shift change. This gentleman has failure of outpatient treatment for left lower extremity cellulitis that has been ongoing despite 3 different antibiotics he will be admitted for treatment. He also has a small knee effusion which is concerning Lab Data: Labs: Lab Results 12/30/20 12/30/20 12/30/20 12:30 21:44 21:44 WBC 6.9 10^3/uL 10^3/ uL (4.0-10.0) RBC 3.87 10^6/uL L 10 ^6/uL (4.1-5.3) Hgb 11.7 g/dL g/dL (11.7-16.6) Hct 34.9 % L % (42.0-52.0) MCV 90.2 fl fl (80-94) MCH 30.2 pg pg (28.0-34.0) MCHC 33.5 g/dL g/dL (30.0-36.0) RDW 13.5 % % (12.1-15.1) Plt Count 221 10^3/cmm 10^3 /cmm (130-400) MPV 11.8 fL H fL (7.4-10.4) Neut % (Auto) 48.2 % % Lymph % (Auto) 29.1 % % [place]kin % (Auto) 16.6 % % Eos % (Auto) 4.8 % % Baso % (Auto) 1.0 % % Neut # (Auto) 3.33 10^3/uL 10^3 /uL (1.8-7.7) Lymph # (Auto) 2.0 10^3/uL 10^3/ uL (0.8-4.8) [place]kin # (Auto) 1.2 10^3/uL H 10^ 3/uL (0.2-0.9) Eos # (Auto) 0.3 10^3/uL 10^3/ uL (0.0-0.8) Baso # (Auto) 0.1 10^3/uL 10^3/ uL (0.0-0.1) Nucleated RBC % (a uto) 0 % % Nucleated RBCs # 0.0 /100WBC /100W BC ESR 19 mm/hr H mm/hr (0-10) PT INR APTT Sodium 137 mmol/L mmol/L (136-145) Potassium 3.9 mmol/L mmol/L (3.5-5.1) Chloride 104 mmol/L mmol/L (98-107) Carbon Dioxide 22 mmol/L mmol/L (22-29) Anion Gap 14.9 (5-19) BUN 15 mg/dL mg/dL (6-20) Creatinine 0.7 mg/dL mg/dL (0.7-1.2) GFR Calculation 120.4 mL/min mL/m in (90-130) Glucose 95 mg/dL mg/dL (65-115) Calculated Osmolal ity 285 mOsm/kg mOsm/ kg (285-295) Lactate Calcium 8.4 mg/dL L mg/dL (8.5-10.5) C-Reactive Protein 12.3 mg/L H mg/L (0.0-4.9) 12/30/20 12/30/20 21:44 21:44 WBC RBC Hgb Hct MCV MCH MCHC RDW Plt Count MPV Neut % (Auto) Lymph % (Auto) [place] % (Auto) Eos % (Auto) Baso % (Auto) Neut # (Auto) Lymph # (Auto) [place] # (Auto) Eos # (Auto) Baso # (Auto) Nucleated RBC % (a uto) Nucleated RBCs # ESR PT 14.20 SECONDS SEC ONDS (12.1-14.9) INR 1.06 (0.8-1.2) APTT 32.6 SECONDS SECO NDS (23.9-36.7) Sodium Potassium Chloride Carbon Dioxide Anion Gap BUN Creatinine GFR Calculation Glucose Calculated Osmolal ity Lactate 1.4 mmol/L mmol/L (0.5-2.2) Calcium C-Reactive Protein Discharge Plan Discharge Patient Disposition: Admitted As Inpatient Admit Provider: Zheng Palomino Clinical Impression: Cellulitis, Failure of outpatient treatment Condition: Stable Discharge Diet: Regular Discharge Activity: Increase activity as tolerated Coding Level of Care Code ED Educational Technology Coordinator for [employer]
[2020-12-30] MEDS: cefTRIAXone 1,000 MG in sodium chloride 0.9% (plus) 50 ML 100 MG IV (21:53)
[2020-12-30 21:55] LABS: Basophils # 0.1 10^3/uL (0.0-0.1); Eosinophils # 0.3 10^3/uL (0.0-0.8); Eosinophils % 4.8 %; Hematocrit 34.9 % (42.0-52.0); Hemoglobin 11.7 g/dL (11.7-16.6); Lymphocytes % 29.1 %; Mean Corpuscular HGB Conc 33.5 g/dL (30.0-36.0); Mean Corpuscular Hemoglobin 30.2 pg (28.0-34.0); Mean Corpuscular Volume 90.2 fl (80-94); Mean Platelet Volume 11.8 fL (7.4-10.4); Monocytes # 1.2 10^3/uL (0.2-0.9); Monocytes % 16.6 %; Neutrophils # 3.33 10^3/uL (1.8-7.7); Neutrophils % 48.2 %; Nucleated Red Blood Cells % 0 %; Platelet Count 221 10^3/cmm (130-400); Red Blood Count 3.87 10^6/uL (4.1-5.3); Red Cell Distribution Width 13.5 % (12.1-15.1); White Blood Count 6.9 10^3/uL (4.0-10.0)
[2020-12-30] MEDS: acetaminophen 500 mg Tablet PO (21:56)
[2020-12-30] MEDS: sodium chloride 0.9% 1,000 ML 999 ML IV (21:58)
[2020-12-30] MEDS: vancomycin 1,000 MG in sodium chloride 0.9% 250 ML 250 MG IV (22:01)
[2020-12-30 22:05] LABS: INR 1.06 (0.8-1.2)
[2020-12-30 22:06] LABS: Partial Thromboplastin Time 32.6 SECONDS (23.9-36.7)
[2020-12-30 22:11] LABS: Anion Gap 14.9 (5-19); Blood Urea Nitrogen 15 mg/dL (6-20); C Reactive Protein 12.3 mg/L (0.0-4.9); Calcium 8.4 mg/dL (8.5-10.5); Carbon Dioxide 22 mmol/L (22-29); Chloride 104 mmol/L (98-107); Creatinine Clr Calc Pharmacy 132.9437; Glomerular Filtration Rate 120.4 mL/min (90-130); Glucose 95 mg/dL (65-115); Osmolality Calculated 285 mOsm/kg (285-295); Potassium 3.9 mmol/L (3.5-5.1); Sodium 137 mmol/L (136-145)
[2020-12-30 22:12] LABS: Lactate (Lactic Acid level) 1.4 mmol/L (0.5-2.2)
--- NOTE | 2020-12-30 22:46 | PC.NURSE ---
pt sleeping at this time.
[2020-12-30 22:48] VITALS: RESP 19; TEMP 37; O2SAT 100
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
[2020-12-31] VITALS (7 sets, daily range): BP systolic 123–155; BP diastolic 65–91; PULSE 45–89; RESP 16–21; TEMP 36.5–37.2; O2SAT 96–100; BMI 25.2
[2020-12-31] MEDS: sodium chloride 0.9% 1,000 ML 75 ML IV ×2 (00:38→15:36)
[2020-12-31] MEDS: piperacillin-tazobactam 3.375 GM in sodium chloride 0.9% (plus) 50 ML IV ×3 (00:39→17:28)
[2020-12-31] MEDS: vancomycin 1,000 MG in sodium chloride 0.9% 250 ML 250 MG IV ×3 (06:01→21:48)
--- NOTE | 2020-12-31 08:03 | USCV_ITS ---
Augustus Smith Age: 50 Gender: M : 1970 Exam Date: 12/31/2020 08:53 Ordering Phys: Good Roman MD Technologist: Cezar Ibrahim [place]am Location[place] [facility] [place]: Cellulitis HISTORY: Lower extremity swelling. PROCEDURES: Venous duplex imaging was performed in only the left lower extremity. The following venous structures were evaluated: common femoral vein, profunda vein, proximal portion of the greater saphenous vein, superficial femoral vein, and the popliteal vein. In addition, the posterior tibial and peroneal trunk were evaluated. FINDINGS: Normal 2-D Doppler and augmentation and compressibility throughout the lower extremity venous structures. Additional imaging through the proximal calf veins also reveals no thrombus. Limited evaluation of the greater saphenous vein is patent with no thrombus. CONCLUSIONS No DVT left lower extremity. Dr. Jing Santoyo DO (Electronically Signed) Final Date: 31 December 2020 10:27 S
[2020-12-31] MEDS: acetaminophen 325 mg Tablet 650 MG PO ×2 (08:36→17:29)
--- NOTE | 2020-12-31 09:23 | PC.CHAP ---
Pastoral Care Encounter/Spiritual Assessment Type of Contact [] Declined safety council director visit [] Patient/Family/Request visit [] Outpatient visit [] Follow-up visit [] Physician referral [] Code/Alert [x] Routine visit [] Staff referral [] Actively dying [] Patient sleeping [] Family support [] [] Out of room [] Palliative care [] [x] Receiving care in room [] Pre-surgical visit [] Trauma [] Long length of stay [] ICU visit [] Other: Relational/Emotional Strength [] Patient feels connected with others/family/visitors/staff [] Distress [] Loneliness/isolation [] Abandonment Spirituality of Patient [] Person of Anne [] Attends Orthodoxy of their Anne [] Believes in Prayer [] Reads Bible or Confucianism materials [] There are Spiritual issues to be addressed Endodontist Interventions [] Prayer [] Active listening [] Non-anxious presence [] Spiritual/emotional support [] Crisis/trauma care [] Spiritual counseling [] Bereavement support [] Provided bereavement packet [] Provided Bible/devotional materials [] Provided toy/stuffed animal, coloring book to patient or family member [] Provided Communion [] Anointing/[place] [] Salvation [] Completed spiritual assessment [] Other: Impact on Illness or Injury [] Angry [] Fearful [] Anxious [] Often cries [] Exhaustion [] Unable to work [] Unable to attend sikhism [] Unable to walk/stand [] Unable to read [] Unable to drive [] Unable to eat/drink [] Unable to sleep [] Unable to be with family [] Patient intubated [] Other: Summary Time spent with patient
--- NOTE | 2020-12-31 13:05 | CT_ITS ---
WS: [id number] CT LEFT LOWER EXTREMITY WITH CONTRAST. HISTORY: HARDWARE present, cellulitis Technique: All CT scans at [facility] use at least one of these dose optimization techniques: automated exposure control; mA and/or kV adjustment per patient size (includes targeted exams where dose is matched to clinical indication); or iterative reconstruction. DLP: 1056.64 mGy.cm Contrast: Omnipaque 350; 95 mL IV COMPARISON: 08/18/2020 There is a small elongated peripherally enhancing fluid collection along the anterior mid tibia exten ding over length of 4.3 cm. This collection begins just below the level of the orthopedic hardware. M aximum transverse diameter is 2.1 cm. There is extensive plate and screw fixation stabilizing a nonunion fracture in the proximal tibia. Fr acture lines are still widely apparent and displaced by 8 mm. 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 There are several residual screw defects within the mid tibia. Small suprapatellar joint effusion is evident. There is diffuse mild soft tissue edema enhancement in volving the proximal to mid lower extremity. CT/CT lower leg LT w con [id number] IMPRESSION: 1. Small peripherally enhancing anterior mid tibia collection measuring 4.3 x 2.1 cm. This collection begins just inferior to the distal extent of the tibial hardware and is similar to the prior study of 08/18/2020. Soft tissue abscess i s not excluded. 2. Comminuted fracture proximal tibia with fixation hardware. Nonunion of the fracture. 3. 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 4. Mild diffuse soft tissue edema from cellulitis. 5. Suprapatellar joint effusion.
--- NOTE | 2020-12-31 13:09 | P.PN_ITS ---
Subjective Subjective: Interval history: Pt was seen this am. He was endorsing felling better however not able to bear weight on left leg CT leg requested Vitals/I&O/Wt Last Vital Signs Temp 97.9 F 12/31/20 11:36 Pulse 83 12/31/20 11:36 Resp 18 12/31/20 11:36 BP 123/74 12/31/20 11:36 Pulse Ox 97 12/31/20 11:36 12/30/20 12/31/20 12/31/20 22:59 06:59 14:59 Intake Total 1035 / 1035 425 / 1460 1500 / 1500 Output Total 900 / 900 1200 / 1200 Balance 1035 / 1035 -475 / 560 300 / 300 Weight last 48 hrs Weight 79.878 kg Weight 79.577 kg Weight 72.575 kg Physical Exam Narrative: EXAM NARRATIVE: Pt was lying supine S1, S2, ABd soft , non tender Non focal neuro exam pt is drowsy, lethargic saturating well on RA Purulent base of wound noticed at left side of leg behing knee hyperemia of left leg Data : 12/30/20 21:44 12/30/20 21:44 Micro: Microbiology 12/30/20 21:44 Blood Culture - Preliminary Blood SPECIMEN COLLECTED 12/30/20 21:44 Blood Culture - Preliminary Blood SPECIMEN COLLECTED A&P Assessment and plan (1) Left leg pain: Status: Acute (2) Cellulitis: Status: Acute (3) Failure of outpatient treatment: Status: Acute Additional A&P Information Left leg cellulitis No signs of sepsis Failed outpatient therapy currently on broad-spectrum antibiotics we will check procalcitonin, requested CT leg to rule out infection of underlying hardware Currently hemodynamically stable Drowsy Able to respond to verbal commands, does answer my questions appropriately Nonfocal neuro exam Getting opioids with bowel regimen I will continue maintenance fluid Full code DVT prophylaxis Lovenox Regular diet Attestations Medical Necessity Statement*: Continue medical management Time Spent in Patient Care: 16 - 35 minutes Coding Level of Care 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
[2020-12-31] MEDS: iohexol 350 mg/mL 100 mL Btl IV (14:33)
[2020-12-31] MEDS: enoxaparin 40 mg/0.4 mL Syringe SUBCUT (17:29)
[2021-01-01] VITALS: BP 145/72; PULSE 72; RESP 17; TEMP 36.6; O2SAT 98
[2021-01-01] MEDS: piperacillin-tazobactam 3.375 GM in sodium chloride 0.9% (plus) 50 ML IV ×3 (00:31→16:31)
[2021-01-01 04:00] VITALS: BP 153/84; PULSE 92; RESP 17; TEMP 36.8; O2SAT 96
[2021-01-01 05:17] LABS: Basophils # 0.1 10^3/uL (0.0-0.1); Basophils % 1.6 %; Eosinophils # 0.3 10^3/uL (0.0-0.8); Eosinophils % 6.8 %; Hematocrit 38.1 % (42.0-52.0); Hemoglobin 12.6 g/dL (11.7-16.6); Lymphocytes # 0.9 10^3/uL (0.8-4.8); Lymphocytes % 22.2 %; Mean Corpuscular HGB Conc 33.1 g/dL (30.0-36.0); Mean Corpuscular Hemoglobin 30.4 pg (28.0-34.0); Mean Platelet Volume 11.4 fL (7.4-10.4); Monocytes # 0.6 10^3/uL (0.2-0.9); Monocytes % 14.9 %; Neutrophils # 2.08 10^3/uL (1.8-7.7); Neutrophils % 54.2 %; Nucleated Red Blood Cells % 0 %; Platelet Count 207 10^3/cmm (130-400); Red Blood Count 4.14 10^6/uL (4.1-5.3); Red Cell Distribution Width 13.9 % (12.1-15.1); White Blood Count 3.8 10^3/uL (4.0-10.0)
[2021-01-01 05:50] LABS: Vancomycin Trough 11.3 ug/mL (10-15)
[2021-01-01 05:51] LABS: Procalcitonin 0.06 ng/mL (0-0.5)
[2021-01-01] MEDS: vancomycin 1,000 MG in sodium chloride 0.9% 250 ML 250 MG IV ×3 (05:55→22:09)
[2021-01-01 06:02] LABS: Anion Gap 14.1 (5-19); Blood Urea Nitrogen 9 mg/dL (6-20); C Reactive Protein 7.7 mg/L (0.0-4.9); Calcium 8.6 mg/dL (8.5-10.5); Carbon Dioxide 23 mmol/L (22-29); Chloride 102 mmol/L (98-107); Glomerular Filtration Rate 143.8 mL/min (90-130); Glucose 99 mg/dL (65-115); Osmolality Calculated 279 mOsm/kg (285-295); Potassium 4.1 mmol/L (3.5-5.1); Sodium 135 mmol/L (136-145)
[2021-01-01 08:00] VITALS: BP 144/82; PULSE 85; RESP 17; TEMP 37.2; O2SAT 98
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
[2021-01-01] MEDS: sennosides-docusate Tablet 2 TAB PO (08:23)
[2021-01-01] MEDS: ketorolac 10 mg Tablet PO (08:29)
[2021-01-01 12:00] VITALS: BP 141/86; PULSE 85; RESP 17; TEMP 36.9; O2SAT 98
--- NOTE | 2021-01-01 13:10 | P.PN_ITS ---
Subjective Subjective: Interval history: Patient was seen by orthopedic PA today SilvaSorb was applied on the wound on left leg No intervention as per general surgery and orthopedics for now, continue antibiotics, patient has been instructed at [facility], patient is stating that he has a bed available on and is looking forward to get discharge before that case resolution specialist updated He has remained afebrile no severe leukocytosis Vitals/I&O/Wt Last Vital Signs Temp 98.5 F 01/01/21 12:00 Pulse 85 01/01/21 12:00 Resp 17 01/01/21 12:00 BP 141/86 01/01/21 12:00 Pulse Ox 98 01/01/21 12:00 12/31/20 01/01/21 01/01/21 22:59 06:59 14:59 Intake Total 1510 / 4010 50 / 4060 610 / 610 Output Total 2580 / 4330 1200 / 5530 2400 / 2400 Balance -1070 / -320 -1150 / -1470 -1790 / -1790 Weight last 48 hrs Weight 79.878 kg Weight 79.577 kg Weight 72.575 kg Physical Exam Narrative: EXAM NARRATIVE: Patient is awake and alert Laying supine Left leg wound covered with silver sorb dressing Hyperemia looks slightly better Fluctuant swelling anterior tibial area 4 x 3 cm left leg No vascular compromise S1, S2 No audible stridor or wheezing EOMI, PERRLA Data : 01/01/21 05:07 01/01/21 05:07 Micro: Microbiology 12/30/20 21:44 Blood Culture - Preliminary Blood NEGATIVE TO DATE 12/30/20 21:44 Blood Culture - Preliminary Blood NEGATIVE TO DATE A&P Assessment and plan (1) Left leg pain: Status: Acute (2) Cellulitis: Status: Acute (3) Failure of outpatient treatment: Status: Acute (4) Tibial plateau fracture, left: Status: Acute Qualifiers: Fracture type: closed Additional A&P Information Left anterior tibial hyperemia cellulitis Mild purulence noted at left leg wound which is just lateral to left knee silver sorb applied by the Ortho PA We will touch base with Ortho if they can drain his abscess however no plan for intervention because of underlying nonunion of underlying fracture with hardware he is high risk for hardware infection He will need close follow-up with orthopedics outpatient Cellulitis: Has not gotten worse afebrile no leukocytosis We will cover for MRSA not a candidate of PICC line agent secondary to IV drug abuse Patient has been accepted at rehab [facility] has a bed available on 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
[2021-01-01 16:00] VITALS: BP 149/81; PULSE 90; RESP 17; TEMP 36.6; O2SAT 98
[2021-01-01 16:27] LABS: Erythrocyte Sedimentation Rate 19 mm/hr (0-10)
[2021-01-01 20:00] VITALS: BP 157/75; PULSE 83; RESP 18; TEMP 36.4; O2SAT 99
[2021-01-02] VITALS: BP 134/76; PULSE 94; RESP 18; TEMP 37.1; O2SAT 99
[2021-01-02] MEDS: piperacillin-tazobactam 3.375 GM in sodium chloride 0.9% (plus) 50 ML IV ×2 (01:31→10:31)
--- NOTE | 2021-01-02 02:01 | PC.NURSE ---
This nurse went into patients room to hang is BRIT, while the patient was rolling over for me to access his IV his VAPE rolled onto the floor, this nurse told him he could not have it per policy, the patient became very upset and told me to unhook him and he would just leave, this nurse told him I had to contact the DrHaylie and get some paper work, this nurse locked the VAPE in pixis and called Dr. Palomino, Dr. Palomino's order was to give it back to him and ask him to not smoke it anymore while he is here and ask him to stay, this nurse returned the VAPE and placed it with his belongings and told him he could not get caught with it anymore while here, patient is suppose to D/C today.
[2021-01-02 04:00] VITALS: BP 134/75; PULSE 71; RESP 19; TEMP 37.2; O2SAT 99
[2021-01-02] MEDS: vancomycin 1,000 MG in sodium chloride 0.9% 250 ML 250 MG IV (05:45)
[2021-01-02 05:50] LABS: Basophils # 0.1 10^3/uL (0.0-0.1); Basophils % 1.1 %; Eosinophils # 0.3 10^3/uL (0.0-0.8); Eosinophils % 7.3 %; Hematocrit 40.4 % (42.0-52.0); Hemoglobin 13.1 g/dL (11.7-16.6); Lymphocytes # 1.1 10^3/uL (0.8-4.8); Lymphocytes % 25.1 %; Mean Corpuscular HGB Conc 32.4 g/dL (30.0-36.0); Mean Corpuscular Hemoglobin 29.8 pg (28.0-34.0); Mean Platelet Volume 11.5 fL (7.4-10.4); Monocytes # 0.6 10^3/uL (0.2-0.9); Monocytes % 12.6 %; Neutrophils # 2.43 10^3/uL (1.8-7.7); Neutrophils % 53.5 %; Nucleated Red Blood Cells % 0 %; Platelet Count 240 10^3/cmm (130-400); Red Blood Count 4.39 10^6/uL (4.1-5.3); Red Cell Distribution Width 13.7 % (12.1-15.1); White Blood Count 4.5 10^3/uL (4.0-10.0)
--- NOTE | 2021-01-02 06:45 | PM.PN ---
Subjective Subjective: Interval history: Patient resting comfortably. States the swelling in his left knee is gone down considerably. Pain is much improved. Vitals/I&O/Wt Last Vital Signs Temp 98.9 F 01/02/21 04:00 Pulse 71 01/02/21 04:00 Resp 19 H 01/02/21 04:00 BP 134/75 01/02/21 04:00 Pulse Ox 99 01/02/21 04:00 01/01/21 01/01/21 01/02/21 14:59 22:59 06:59 Intake Total 1020 / 1020 940 / 1960 300 / 2260 Output Total 2400 / 2400 750 / 3150 Balance -1380 / -1380 940 / -440 -450 / -890 Physical Exam Narrative: EXAM NARRATIVE: He is alert oriented x3 has good general appearance. Resting comfortably when I walked in the room. Dressing was removed from the left knee shows the wounds to be granulating in nicely. Significant change for the better over the last 24 hours with a Silverlon dressing. He is wiggling his toes are warm to the touch she can flex and extend the left knee without any pain his calves are supple. Feet are warm. Resp: COMMON NORMALS: normal respiratory effort Cardio: COMMON NORMALS: regular rate and regular rhythm RATE: regular rate RHYTHM: regular rhythm Psych: COMMON NORMALS: cooperative Data : 01/02/21 04:45 01/01/21 05:07 A&P Assessment and plan (1) Cellulitis: Continue with dressing changes to the left knee with Silverlon dressing. Continued ice and elevate as needed. Progress to weightbearing as tolerated. We will see him back in the office in 1 week's time for wound check. Okay from orthopedic standpoint for discharge when medically stable. 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
[2021-01-02 07:27] VITALS: BP 147/90; PULSE 86; RESP 18; TEMP 36.7; O2SAT 98
[2021-01-02] MEDS: sennosides-docusate Tablet 2 TAB PO (09:13)
--- NOTE | 2021-01-02 10:50 | PM.DCS ---
Discharge Providers Date of Admission: 12/30/20 23:09 Date of Discharge: January 02, 2021 Attending Provider at Admission: Zheng Palomino Attending Provider at Discharge: Nlel Verdugo MD Primary Care Provider: Jacquelyn Brown DO Diagnoses at Discharge Discharge Diagnosis (1) Cellulitis: Status: Acute Reason for Visit Reason for Visit: left leg pain Hospital Course Hospital Course Patient was admitted for left anterior tibial s. there was mild purulence noted left leg wound as well. Patient was seen by orthopedic surgery who he is already following up with as an outpatient. There is no plan to drain his superficial abscess at this point and no plan for intervention because of underlying nonunion of underlying fracture with hardware. He is at high risk for hardware infection. Patient was reseen today by orthopedic surgery. Plan is to send him home on oral antibiotics and to follow-up with the patient as an outpatient in 1 week. Patient is also excited to go to [facility] where he will be starting tomorrow 01/03. He will be discharged on doxycycline and Augmentin for 14 days. I did discuss with Dr. Bermudez and he agrees with the plan. Physical Exam Narrative: EXAM NARRATIVE: Patient is awake and alert Laying supine Left leg wound covered with silver sorb dressing Hyperemia looks slightly better Fluctuant swelling anterior tibial area 4 x 3 cm left leg. No vascular compromise S1, S2 No audible stridor or wheezing EOMI, PERRLA Discharge Data Data Completed and Pending: Completed Studies During Hospitalization Category Date Time Status CT lower leg LT w con [id number] Stat Cat Scan 12/31/20 13:05 Completed XR tibia fibula L T 2V [id number] Urgent Exams 12/30/20 21:19 [place] [id number] Routin e Ultrasound 12/31/20 08:03 Completed Pending at discharge Category Date Time Status Blood Culture Sta t Lab 12/30/20 21:44 Results Labs from last 24 hours 01/02/21 12/30/20 04:45 12:30 WBC 4.5 RBC 4.39 Hgb 13.1 Hct 40.4 L MCV 92.0 MCH 29.8 MCHC 32.4 RDW 13.7 Plt Count 240 MPV 11.5 H Neut % (Auto) 53.5 Lymph % (Auto) 25.1 Stanley % (Auto) 12.6 Eos % (Auto) 7.3 Baso % (Auto) 1.1 Neut # (Auto) 2.43 Lymph # (Auto) 1.1 Stanley # (Auto) 0.6 Eos # (Auto) 0.3 Baso # (Auto) 0.1 Nucleated RBC % (a uto) 0 Nucleated RBCs # 0.0 ESR 19 H Vitals: Last Vital Signs Temp 98.0 F 01/02/21 07:27 Pulse 86 01/02/21 07:27 Resp 18 01/02/21 07:27 BP 147/90 01/02/21 07:27 Pulse Ox 98 01/02/21 07:27 Discharge Plan Discharge Patient Disposition: Home Condition: Stable Prescriptions: New Augmentin 875-125 mg tablet 1 tab PO BID 14 Days Qty: 28 RF: 0 doxycycline hyclate 100 mg tablet 100 mg PO BID 14 Days Qty: 28 RF: 0 nicotine 7 mg/24 hr patch 24 hour 1 patch transdermal DAILY 7 Days Qty: 7 RF: 0 Continued multivitamin Tablet 1 tab PO DAILY RF: 0 nitroglycerin 0.4 mg Tablet, Sublingual 0.4 mg sublingual Q5M PRN (Reason: Chest Pain) Qty: 30 RF: 0 naproxen [Naprosyn] 500 mg tablet 500 mg PO BID PRN (Reason: pain) Qty: 20 RF: 0 Discontinued ketorolac 10 mg tablet 10 mg PO TID PRN (Reason: pain) Qty: 10 RF: 0 sulfamethoxazole-trimethoprim [Bactrim DS] 800-160 mg tablet 1 tab PO BID Qty: 20 RF: 0 cephalexin 500 mg capsule 500 mg PO TID 7 Days Qty: 21 RF: 0 No Action (DME) Diabetic shoes See Rx Instructions .Route .MEDSUPPLY Qty: 1 RF: 0 (DME) WHEEL CHAIR WITH LEG ELEVATORS See Rx Instructions .ROUTE .MEDSUPPLY Qty: 1 RF: 0 Discharge Orders: Discharge Order (Routine); Ordered 01/02/21 Ordered By: Nell Verdugo Referrals: Jacquelyn Brown DO [Primary Care Provider] - 01/10/21 3:00 pm ( ) Discharge Diet: Regular Discharge Activity: Increase activity as tolerated Patient Instructions: Cellulitis, Doxycycline (By mouth), Nicotine (Into the mouth), Amoxicillin/Clavulanate Potassium (By mouth), Nicotine (Absorbed through the skin), How to Stop Smoking (DC), Opioid Safety Discharge Attestations Time Spent in Discharge Care*: less than 30 min Quality Metrics Clinical Quality Measures During this hospital stay, did patient experience: None Coding Level of Care Code Acute Chg FW DC note Diagnoses Cellulitis L03.90
[2021-01-02 11:29] VITALS: BP 122/76; PULSE 88; RESP 16; TEMP 36.4; O2SAT 99
--- NOTE | 2021-01-02 11:36 | PM.PN ---
Subjective Subjective: Interval history: pt seen sleping in bed Vitals/I&O/Wt Last Vital Signs Temp 97.6 F 01/02/21 11:29 Pulse 88 01/02/21 11:29 Resp 16 01/02/21 11:29 BP 122/76 01/02/21 11:29 Pulse Ox 99 01/02/21 11:29 01/01/21 01/02/21 01/02/21 22:59 06:59 14:59 Intake Total 940 / 1960 550 / 2510 360 / 360 Output Total 750 / 3150 775 / 775 Balance 940 / -440 -200 / -640 -415 / -415 Physical Exam Narrative: EXAM NARRATIVE: wound with Silvalon dressin jordin it. 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
== END 2021-01-02 15:12 | disposition home or self-care (01) | DRG 603 ==
LOC: ER 23:26 → MEDSURG 23:44
PROVIDERS: Emergency Medicine; Internal Medicine; Admitting Provider Internal Medicine; Emergency Provider Emergency Medicine; PCP Family Medicine; Visit Provider Internal Medicine
DX: L03.116 Cellulitis of left lower limb (principal); S82.102K Unspecified fracture of upper end of left tibia, subsequent encounter for closed fracture with nonunion; S82.832K Other fracture of upper and lower end of left fibula, subsequent encounter for closed fracture with nonunion; I10 Essential (primary) hypertension; B19.20 Unspecified viral hepatitis C without hepatic coma; F19.10 Other psychoactive substance abuse, uncomplicated; Z86.14 Personal history of Methicillin resistant Staphylococcus aureus infection; V19.9XXD Pedal cyclist (driver) (passenger) injured in unspecified traffic accident, subsequent encounter
CPT/HCPCS: 36415; 73590; 73701; 80048; 80202; 83605; 84145; 85025; 85610; 85651; 85730; 86140; 87040; 93971; 96361; 96365; 96367; 96372; 99285; J0696; J1650; J2543; J3370; J7030; J7050; Q9967

== ENCOUNTER → 2021-01-23 16:10 | Outpatient (BNVA) | payer MEDICAID, SELFPAY | PROVIDERS: PCP Family Medicine; Visit Provider Internal Medicine | DX: B19.20 Unspecified viral hepatitis C without hepatic coma (principal); R76.8 Other specified abnormal immunological findings in serum; B18.2 Chronic viral hepatitis C; F19.10 Other psychoactive substance abuse, uncomplicated | CPT/HCPCS: 82105; 87522; 87902 ==

== ENCOUNTER 2021-02-12 05:44 | Emergency (ER) | payer MEDICAID, SELFPAY ==
[2021-02-12 05:51] VITALS: BP 142/87; PULSE 100; RESP 18; TEMP 36.6; O2SAT 98; BMI 31.5
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
[2021-02-12 06:41] LABS: Basophils # 0.1 10^3/uL (0.0-0.1); Basophils % 1.2 %; Eosinophils # 0.2 10^3/uL (0.0-0.8); Eosinophils % 2.8 %; Hematocrit 39.4 % (42.0-52.0); Hemoglobin 13.5 g/dL (11.7-16.6); Lymphocytes % 25.5 %; Mean Corpuscular HGB Conc 34.3 g/dL (30.0-36.0); Mean Corpuscular Hemoglobin 30.9 pg (28.0-34.0); Mean Corpuscular Volume 90.2 fl (80-94); Mean Platelet Volume 11.1 fL (7.4-10.4); Monocytes % 12.6 %; Neutrophils # 4.46 10^3/uL (1.8-7.7); Neutrophils % 57.8 %; Nucleated Red Blood Cells % 0 %; Platelet Count 208 10^3/cmm (130-400); Red Blood Count 4.37 10^6/uL (4.1-5.3); Red Cell Distribution Width 14.3 % (12.1-15.1); White Blood Count 7.7 10^3/uL (4.0-10.0)
[2021-02-12 06:50] LABS: Anion Gap 17.8 (5-19); Blood Urea Nitrogen 14 mg/dL (6-20); C Reactive Protein 6.9 mg/L (0.0-4.9); Calcium 8.3 mg/dL (8.5-10.5); Carbon Dioxide 19 mmol/L (22-29); Chloride 104 mmol/L (98-107); Glomerular Filtration Rate 103.2 mL/min (90-130); Glucose 85 mg/dL (65-115); Osmolality Calculated 284 mOsm/kg (285-295); Potassium 3.8 mmol/L (3.5-5.1); Sodium 137 mmol/L (136-145)
== END 2021-02-12 07:36 | disposition home or self-care (01) ==
PROVIDERS: Emergency Provider Family Medicine; PCP Family Medicine
DX: L03.116 Cellulitis of left lower limb (principal); F17.210 Nicotine dependence, cigarettes, uncomplicated
CPT/HCPCS: 73590; 80048; 85025; 86140; 99283

== ENCOUNTER → 2021-03-07 15:10 | Outpatient (BNVA) | payer MEDICAID, SELFPAY | PROVIDERS: PCP Family Medicine; Visit Provider Orthopaedic Surgery | DX: M25.551 Pain in right hip (principal); M25.561 Pain in right knee; M79.671 Pain in right foot; M25.572 Pain in left ankle and joints of left foot | CPT/HCPCS: 73502; 73562; 73610; 73630 ==

== ENCOUNTER 2021-06-20 03:43 | Emergency (ER) | payer MEDICAID, SELFPAY ==
[2021-06-20 03:51] VITALS: BP 165/96; PULSE 94; RESP 16; TEMP 36.7; O2SAT 100; BMI 22.9
--- NOTE | 2021-06-20 03:52 | XRR_ITS ---
PROCEDURE INFORMATION: Exam: XR Right Hip Exam date and time: 06/20/2021 3:54 AM Age: 51 years old Clinical indication: Prior surgery; Surgery type: Pelvic fixation. ; Patient HX: Patient states he has had a couple of recent falls and C/O worsening right hip pain. ; Additional info: Fall TECHNIQUE: Imaging protocol: XR Right hip. Views: 1 view hip with pelvis when performed. Total images: 2 COMPARISON: CR XR hip RT 2-3V wo/w pel* [id number] 03/07/2021 3:17 PM FINDINGS: Bones/joints: Status post right acetabular reconstructive surgery with small plate and screw fixation unchanged from prior exam. No acute fracture nor subluxation. No osseous erosion nor periosteal reaction. Soft tissues: Unremarkable. XR/XR hip RT 2-3V wo/w pel* [id number] IMPRESSION: 1. Status post right acetabular reconstructive surgery with small plate and screw fixation unchanged from prior exam. 2. No acute osseous pathology.
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
[2021-06-20] MEDS: dexamethasone 10 mg/mL INJ IM (04:10)
[2021-06-20 04:11] VITALS: RESP 18; O2SAT 98
[2021-06-20] MEDS: morphine 4 mg/mL SDV 1 mL IM (04:11)
[2021-06-20 04:27] VITALS: BP 149/88; PULSE 84; RESP 16; O2SAT 97
== END 2021-06-20 04:27 | disposition home or self-care (01) ==
PROVIDERS: Emergency Provider Emergency Medicine; PCP Family Medicine
DX: M25.551 Pain in right hip (principal); F17.210 Nicotine dependence, cigarettes, uncomplicated
CPT/HCPCS: 73502; 96372; 99283; J1100; J2270

== ENCOUNTER 2021-07-03 01:26 | Emergency (ER) | payer MEDICAID, SELFPAY ==
[2021-07-03 01:32] VITALS: BP 139/76; PULSE 111; RESP 18; TEMP 36.8; O2SAT 97; BMI 22.9
--- NOTE | 2021-07-03 01:40 | PC.NURSE ---
Pt refuses vital monitoring at this time and states I don't want that on me
--- NOTE | 2021-07-03 01:42 | ED_ITS ---
Documented by User: JS Rizo 07/03/21 17:10 HPI - Nausea/Vomiting/Diarrhea General: Chief complaint: Nausea/Vomiting/Diarrhea Stated complaint: PT said food poisoning Time Seen by Provider: 07/03/21 01:32 History of Present Illness: Patient is a 51-year-old male comes to the ED with multiple complaints. His main complaint is nausea and vomiting. His symptoms started tonight right after he ate [employer]. He states for the past hour he has had multiple episodes of emesis and still feels very nauseous. Denies any diarrhea or abdominal pain. He is also complaining of having left rib and left stump pain after having a fall over a week ago. Left rib pain worsens with inspiration. denies any head trauma or loss of consciousness. Patient does admit to recent meth use. Associated nausea: Yes Associated symtoms: Reports nausea; Denies change in vision, chest pain, dysuria, fatigue, headache(s) or palpitations Review of Systems Const: Denies: fever(s), chills or fatigue Eyes: Denies: change in vision or eye discomfort ENMT: Denies: throat pain, odynophagia, nasal discharge or nasal congestion Card: Denies: chest pain, palpitations, edema, swelling of feet/ankles, dyspnea on exertion or orthopnea Resp: Denies: dyspnea, productive cough or non-productive cough GI: Reports: nausea and vomiting; Denies: abdominal pain, diarrhea, constipation or hematochezia : Denies: flank pain, difficulty urinating, dysuria or hematuria Musc: Reports: extremity pain (Left lower extremity pain.); Denies: neck pain, back pain or extremity swelling Skin/Breast: Denies: rash or new lesions Neuro: Denies: headache(s), numbness in extremities or weakness in extremities PFS ED PFSH: Medical History No pertinent past medical history Surgical History History of ankle surgery Family History Other No pertinent family history Social History Smoking and tobacco status: current every day smoker cigarettes Alcohol intake: never Physical Exam Const: COMMON NORMALS: patient oriented x3 and alert GENERAL APPEARANCE: cooperative and comfortable HENMT: COMMON NORMALS: normocephalic HEAD & SCALP: normocephalic MOUTH: Normal oral and palatal mucosa present THROAT: posterior oropharynx normal and uvula midline Eye: COMMON NORMALS: Equal, round and reactive pupils present and conjunctivae normal CONJUNCTIVA: Yes conjunctivae normal PUPIL: Yes Equal, round and reactive pupils present Neck/C-Spine: COMMON NORMALS: supple GENERAL: Yes normal visual inspection Resp: COMMON NORMALS: normal respiratory effort, No retractions, No use of accessory muscles and clear to auscultation bilaterally AUSCULTATION: clear to auscultation bilaterally Cardio: COMMON NORMALS: regular rate, regular rhythm, S1 normal heart sound present, S2 normal heart sound present, No gallops present (Cardio), No clicks present (Cardio), No murmurs present (Cardio) and Peripheral pulses 2+ throughout RATE: regular rate RHYTHM: regular rhythm HEART SOUNDS: S1 normal heart sound present and S2 normal heart sound present PERIPHERAL PULSES: Peripheral pulses 2+ throughout GI: COMMON NORMALS: Normal to inspection, nondistended, normoactive bowel sounds present, Soft to palpation, non-tender and no masses PALPATION: Yes Soft to palpation : COMMON NORMALS: Yes no CVA tenderness BLADDER/KIDNEY EXAM: Yes no CVA tenderness Back/Pelvis: COMMON NORMALS: no CVA tenderness Extremity: NARRATIVE EXTREMITY EXAM: Left lower extremity?hifxm-gmp-gadt amputation. Neuro: COMMON NORMALS: patient oriented x3 and moves all extremities SENSORIUM/ORIENTATION: Yes alert Skin: GENERAL SKIN EXAM: dry skin Course Vital Signs: Vital signs: Vital Signs Temperature 98.3 F 07/03/21 01:32 Pulse Rate 111 H 07/03/21 01:32 Respiratory Rate 18 07/03/21 01:32 Blood Pressure 139/76 07/03/21 01:32 Pulse Oximetry 97 07/03/21 01:32 MDM - Nausea/Vomiting/Diarrhea Lab Data : 07/03/21 02:00 07/03/21 02:00 Radiology Impressions Femur X-Ray 07/03/21 01:47 IMPRESSION: No acute femoral fracture identified. Ribs X-Ray 07/03/21 01:47 IMPRESSION: 1. No acute findings. 2. No displaced rib fractures identified. Laboratory Results WBC 7.3 10^3/uL (4.0-10.0) 07/03/21 02:00 RBC 4.45 10^6/uL (4.1-5.3) 07/03/21 02:00 Hgb 13.3 g/dL (11.7-16.6) 07/03/21 02:00 Hct 39.1 % (42.0-52.0) L 07/03/21 02:00 MCV 87.9 fl (80-94) 07/03/21 02:00 MCH 29.9 pg (28.0-34.0) 07/03/21 02:00 MCHC 34.0 g/dL (30.0-36.0) 07/03/21 02:00 RDW 14.5 % (12.1-15.1) 07/03/21 02:00 Plt Count 159 10^3/cmm (130-400) 07/03/21 02:00 MPV 12.5 fL (7.4-10.4) H 07/03/21 02:00 Neut % (Auto) 65.8 % 07/03/21 02:00 Lymph % (Auto) 17.8 % 07/03/21 02:00 [place] % (Auto) 12.5 % 07/03/21 02:00 Eos % (Auto) 2.6 % 07/03/21 02:00 Baso % (Auto) 1.2 % 07/03/21 02:00 Neut # (Auto) 4.82 10^3/uL (1.8-7.7) 07/03/21 02:00 Lymph # (Auto) 1.3 10^3/uL (0.8-4.8) 07/03/21 02:00 [place] # (Auto) 0.9 10^3/uL (0.2-0.9) 07/03/21 02:00 Eos # (Auto) 0.2 10^3/uL (0.0-0.8) 07/03/21 02:00 Baso # (Auto) 0.1 10^3/uL (0.0-0.1) 07/03/21 02:00 Nucleated RBC % (auto) 0 % 07/03/21 02:00 Nucleated RBCs # 0.0 /100WBC 07/03/21 02:00 Sodium 138 mmol/L (136-145) 07/03/21 02:00 Potassium 3.7 mmol/L (3.5-5.1) 07/03/21 02:00 Chloride 105 mmol/L (98-107) 07/03/21 02:00 Carbon Dioxide 23 mmol/L (22-29) 07/03/21 02:00 Anion Gap 13.7 (5-19) 07/03/21 02:00 BUN 12 mg/dL (6-20) 07/03/21 02:00 Creatinine 0.8 mg/dL (0.7-1.2) 07/03/21 02:00 GFR Calculation 102.7 mL/min (90-130) 07/03/21 02:00 Glucose 133 mg/dL (65-115) H 07/03/21 02:00 Calculated Osmolality 288 mOsm/kg (285-295) 07/03/21 02:00 Calcium 9.1 mg/dL (8.5-10.5) 07/03/21 02:00 Total Bilirubin 0.3 mg/dL (0.15-1.2) 07/03/21 02:00 AST 80 U/L (0-40) H 07/03/21 02:00 ALT 109 U/L (0-41) H 07/03/21 02:00 Alkaline Phosphatase 83 IU/L (40-130) 07/03/21 02:00 Total Protein 7.6 g/dL (6.6-8.7) 07/03/21 02:00 Albumin 3.8 g/dL (3.5-5.2) 07/03/21 02:00 Globulin 3.8 g/dL (1.3-4.6) 07/03/21 02:00 Lipase 47 U/L (13-60) 07/03/21 02:00 Discharge Plan Discharge Patient Disposition: Home Clinical Impression: Food poisoning Condition: Stable Prescriptions: New ondansetron 4 mg tablet,disintegrating 4 mg PO Q8H PRN (Reason: nausea and vomiting) Qty: 12 0RF No Action (DME) Diabetic shoes See Rx Instructions .Route .MEDSUPPLY Qty: 1 0RF Rx Instructions: As directed (DME) WHEEL CHAIR See Rx Instructions .ROUTE .MEDSUPPLY Qty: 1 0RF Rx Instructions: As directed (DME) Shower Chair See Rx Instructions .Route .MEDSUPPLY Qty: 1 0RF Rx Instructions: As directed oxycodone 5 mg tablet 5 mg PO Q4H PRN (Reason: pain) 7 Days Qty: 40 0RF hydrocodone-acetaminophen 10-325 mg tablet 1 tab PO Q6H PRN (Reason: pain) 5 Days Qty: 20 0RF (DME) stump [employer] age [employer] associate and supplies See Rx Instructions .Route .MEDSUPPLY Qty: 1 0RF Rx Instructions: As directed oxycodone 10 mg tablet 10 mg PO Q6H PRN (Reason: pain) 10 Days Qty: 40 0RF multivitamin Tablet 1 tab PO DAILY 0RF nitroglycerin 0.4 mg Tablet, Sublingual 0.4 mg sublingual Q5M PRN (Reason: Chest Pain) Qty: 30 0RF Rx Instructions: not to exceed 3 doses naproxen [Naprosyn] 500 mg tablet 500 mg PO BID PRN (Reason: pain) Qty: 20 0RF Rx Instructions: rx written 12/27/20 pt states he didnt fill rx Naprosyn 500 mg tablet 500 mg PO BID PRN (Reason: pain) Qty: 20 0RF Discharge Orders: Discharge ED (Routine); Ordered 07/03/21 Ordered By: Tunde Rogel Referrals: Jacquelyn Brown DO [Primary Care Provider] - 1-3 days Discharge Diet: Regular Discharge Activity: Increase activity as tolerated Patient Instructions: Food Poisoning (ED) Activity Restrictions/Additional Instructions: Follow-up with medical provider as directed. Take medications as prescribed. Return to the ER or your medical provider if condition worsens. Please read and understand discharge instructions. Thank you for choosing [facility] for your healthcare needs today. Please realize this is an emergency room and that we are providing you with a medical screening exam and this may not be complete and all inclusive of all the testing and or work up that you may need to determine your ailment or severity of your illness. It is very important that you follow up as instructed or that you return to the Emergency Department should you have concerns or if your condition changes or worsens in any way. 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[employer] Exam Comprehensive Documented by User: Tunde Rogel MD 07/03/21 03:45 HPI - Nausea/Vomiting/Diarrhea General: Chief complaint: Nausea/Vomiting/Diarrhea Stated complaint: PT said food poisoning Time Seen by Provider: 07/03/21 01:32 [facility] ED PFSH: Medical History No pertinent past medical history Surgical History History of ankle surgery Family History Other No pertinent family history Social History Smoking and tobacco status: current every day smoker cigarettes Alcohol intake: never Course Vital Signs: Vital signs: Vital Signs Temperature 98.3 F 07/03/21 01:32 Pulse Rate 111 H 07/03/21 01:32 Respiratory Rate 18 07/03/21 01:32 Blood Pressure 139/76 07/03/21 01:32 Pulse Oximetry 97 07/03/21 01:32 MDM - Nausea/Vomiting/Diarrhea Medical Decision Making Patient presents with nausea vomiting is likely food poisoning feels improved after Zofran IV fluids he is well-appearing hearing labs are normal he is stable for discharge Lab Data : 07/03/21 02:00 07/03/21 02:00 Radiology Impressions Femur X-Ray 07/03/21 01:47 IMPRESSION: No acute femoral fracture identified. Ribs X-Ray 07/03/21 01:47 IMPRESSION: 1. No acute findings. 2. No displaced rib fractures identified. Laboratory Results WBC 7.3 10^3/uL (4.0-10.0) 07/03/21 02:00 RBC 4.45 10^6/uL (4.1-5.3) 07/03/21 02:00 Hgb 13.3 g/dL (11.7-16.6) 07/03/21 02:00 Hct 39.1 % (42.0-52.0) L 07/03/21 02:00 MCV 87.9 fl (80-94) 07/03/21 02:00 MCH 29.9 pg (28.0-34.0) 07/03/21 02:00 MCHC 34.0 g/dL (30.0-36.0) 07/03/21 02:00 RDW 14.5 % (12.1-15.1) 07/03/21 02:00 Plt Count 159 10^3/cmm (130-400) 07/03/21 02:00 MPV 12.5 fL (7.4-10.4) H 07/03/21 02:00 Neut % (Auto) 65.8 % 07/03/21 02:00 Lymph % (Auto) 17.8 % 07/03/21 02:00 [place] % (Auto) 12.5 % 07/03/21 02:00 Eos % (Auto) 2.6 % 07/03/21 02:00 Baso % (Auto) 1.2 % 07/03/21 02:00 Neut # (Auto) 4.82 10^3/uL (1.8-7.7) 07/03/21 02:00 Lymph # (Auto) 1.3 10^3/uL (0.8-4.8) 07/03/21 02:00 [place] # (Auto) 0.9 10^3/uL (0.2-0.9) 07/03/21 02:00 Eos # (Auto) 0.2 10^3/uL (0.0-0.8) 07/03/21 02:00 Baso # (Auto) 0.1 10^3/uL (0.0-0.1) 07/03/21 02:00 Nucleated RBC % (auto) 0 % 07/03/21 02:00 Nucleated RBCs # 0.0 /100WBC 07/03/21 02:00 Sodium 138 mmol/L (136-145) 07/03/21 02:00 Potassium 3.7 mmol/L (3.5-5.1) 07/03/21 02:00 Chloride 105 mmol/L (98-107) 07/03/21 02:00 Carbon Dioxide 23 mmol/L (22-29) 07/03/21 02:00 Anion Gap 13.7 (5-19) 07/03/21 02:00 BUN 12 mg/dL (6-20) 07/03/21 02:00 Creatinine 0.8 mg/dL (0.7-1.2) 07/03/21 02:00 GFR Calculation 102.7 mL/min (90-130) 07/03/21 02:00 Glucose 133 mg/dL (65-115) H 07/03/21 02:00 Calculated Osmolality 288 mOsm/kg (285-295) 07/03/21 02:00 Calcium 9.1 mg/dL (8.5-10.5) 07/03/21 02:00 Total Bilirubin 0.3 mg/dL (0.15-1.2) 07/03/21 02:00 AST 80 U/L (0-40) H 07/03/21 02:00 ALT 109 U/L (0-41) H 07/03/21 02:00 Alkaline Phosphatase 83 IU/L (40-130) 07/03/21 02:00 Total Protein 7.6 g/dL (6.6-8.7) 07/03/21 02:00 Albumin 3.8 g/dL (3.5-5.2) 07/03/21 02:00 Globulin 3.8 g/dL (1.3-4.6) 07/03/21 02:00 Lipase 47 U/L (13-60) 07/03/21 02:00 Discharge Plan Discharge Patient Disposition: Home Clinical Impression: Food poisoning Condition: Stable Prescriptions: New ondansetron 4 mg tablet,disintegrating 4 mg PO Q8H PRN (Reason: nausea and vomiting) Qty: 12 0RF No Action (DME) Diabetic shoes See Rx Instructions .Route .MEDSUPPLY Qty: 1 0RF Rx Instructions: As directed (DME) WHEEL CHAIR See Rx Instructions .ROUTE .MEDSUPPLY Qty: 1 0RF Rx Instructions: As directed (DME) Shower Chair See Rx Instructions .Route .MEDSUPPLY Qty: 1 0RF Rx Instructions: As directed oxycodone 5 mg tablet 5 mg PO Q4H PRN (Reason: pain) 7 Days Qty: 40 0RF hydrocodone-acetaminophen 10-325 mg tablet 1 tab PO Q6H PRN (Reason: pain) 5 Days Qty: 20 0RF (DME) [employer] age [employer] 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 and 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 See Rx Instructions .Route .MEDSUPPLY Qty: 1 0RF Rx Instructions: As directed oxycodone 10 mg tablet 10 mg PO Q6H PRN (Reason: pain) 10 Days Qty: 40 0RF multivitamin Tablet 1 tab PO DAILY 0RF nitroglycerin 0.4 mg Tablet, Sublingual 0.4 mg sublingual Q5M PRN (Reason: Chest Pain) Qty: 30 0RF Rx Instructions: not to exceed 3 doses naproxen [Naprosyn] 500 mg tablet 500 mg PO BID PRN (Reason: pain) Qty: 20 0RF Rx Instructions: rx written 12/27/20 pt states he didnt fill rx Naprosyn 500 mg tablet 500 mg PO BID PRN (Reason: pain) Qty: 20 0RF Discharge Orders: Discharge ED (Routine); Ordered 07/03/21 Ordered By: Tunde Rogel Referrals: Jacquelyn Brown DO [Primary Care Provider] - 1-3 days Discharge Diet: Regular Discharge Activity: Increase activity as tolerated Patient Instructions: Food Poisoning (ED) Activity Restrictions/Additional Instructions: Follow-up with medical provider as directed. Take medications as prescribed. Return to the ER or your medical provider if condition worsens. Please read and understand discharge instructions. Thank you for choosing [facility] for your healthcare needs today. Please realize this is an emergency room and that we are providing you with a medical screening exam and this may not be complete and all inclusive of all the testing and or work up that you may need to determine your ailment or severity of your illness. It is very important that you follow up as instructed or that you return to the Emergency Department should you have concerns or if your condition changes or worsens in any way. 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
--- NOTE | 2021-07-03 01:47 | XRR_ITS ---
PROCEDURE INFORMATION: Exam: XR Left Ribs with PA Chest Exam date and time: 07/03/2021 1:53 AM Age: 51 years old Clinical indication: Injury or trauma; Fall; Rib area, left side; Blunt trauma; Patient HX: Patient states fell while on crutches. C/O left rib and left stump pain. ; Additional info: Fall with left rib pain TECHNIQUE: Imaging protocol: XR Left ribs with PA chest. Views: 3 views COMPARISON: CR XR chest 1V portable [id number] 09/20/2020 11:17 AM FINDINGS: Lungs: The lung parenchyma is clear. Pleural spaces: No pneumothorax. No pleural effusion. Heart/Mediastinum: The cardiomediastinal silhouette is within normal limits. Bones/joints: Unremarkable. No displaced rib fractures identified. XR/XR ribs LT mn 3V w CXR1V [id number] IMPRESSION: 1. No acute findings. 2. No displaced rib fractures identified.
--- NOTE | 2021-07-03 01:47 | XRR_ITS ---
PROCEDURE INFORMATION: Exam: XR Left Femur Exam date and time: 07/03/2021 2:06 AM Age: 51 years old Clinical indication: Injury or trauma; Fall; Blunt trauma; Thigh or upper leg; Prior surgery; Surgery date: 6+ months; Surgery type: Amputation; Patient HX: Patient states fell while on crutches. C/O left rib and left stump pain. ; Additional info: Fall with left stump pain TECHNIQUE: Imaging protocol: XR Left femur. Views: 2 views. COMPARISON: No relevant prior studies available. FINDINGS: Bones/joints: Patient status post resection of the femur at the mid diaphysis. Round lucencies likely related to prior hardware noted in the distal femur. No acute fracture identified. Partially visualized hardware in the right pelvis. Soft tissues: Unremarkable. XR/XR femur LT min 2V* [id number] IMPRESSION: No acute femoral fracture identified.
[2021-07-03 02:06] LABS: Basophils # 0.1 10^3/uL (0.0-0.1); Basophils % 1.2 %; Eosinophils # 0.2 10^3/uL (0.0-0.8); Eosinophils % 2.6 %; Hematocrit 39.1 % (42.0-52.0); Hemoglobin 13.3 g/dL (11.7-16.6); Lymphocytes # 1.3 10^3/uL (0.8-4.8); Lymphocytes % 17.8 %; Mean Corpuscular Hemoglobin 29.9 pg (28.0-34.0); Mean Corpuscular Volume 87.9 fl (80-94); Mean Platelet Volume 12.5 fL (7.4-10.4); Monocytes # 0.9 10^3/uL (0.2-0.9); Monocytes % 12.5 %; Neutrophils # 4.82 10^3/uL (1.8-7.7); Neutrophils % 65.8 %; Nucleated Red Blood Cells % 0 %; Platelet Count 159 10^3/cmm (130-400); Red Blood Count 4.45 10^6/uL (4.1-5.3); Red Cell Distribution Width 14.5 % (12.1-15.1); White Blood Count 7.3 10^3/uL (4.0-10.0)
[2021-07-03 02:30] LABS: Alanine Aminotransferase 109 U/L (0-41); Albumin Level 3.8 g/dL (3.5-5.2); Alkaline Phosphatase 83 IU/L (40-130); Anion Gap 13.7 (5-19); Aspartate Amino Transferase 80 U/L (0-40); Blood Urea Nitrogen 12 mg/dL (6-20); Calcium 9.1 mg/dL (8.5-10.5); Carbon Dioxide 23 mmol/L (22-29); Chloride 105 mmol/L (98-107); Globulin 3.8 g/dL (1.3-4.6); Glomerular Filtration Rate 102.7 mL/min (90-130); Glucose 133 mg/dL (65-115); Lipase 47 U/L (13-60); Osmolality Calculated 288 mOsm/kg (285-295); Potassium 3.7 mmol/L (3.5-5.1); Sodium 138 mmol/L (136-145); Total Bilirubin 0.3 mg/dL (0.15-1.2); Total Protein 7.6 g/dL (6.6-8.7)
[2021-07-03] MEDS: sodium chloride 0.9% 1,000 ML 999 ML IV (02:58)
[2021-07-03] MEDS: metoclopramide 5 mg/mL SDV 2 mL 10 MG IVP (02:58)
--- NOTE | 2021-07-03 03:40 | PC.NURSE ---
Upon entry to room pt notified of discharge. A large wad of money was laying on the bedside table. Pt then pulled out his own IV and began to attempt to get out of the bed. Pt agreed to let nurse apply bandage on arm to stop bleeding from IV site. Pt refused to let nurse take vitals at discharge. Pt states that he wants [employer] called at this time.
== END 2021-07-03 03:41 | disposition home or self-care (01) ==
PROVIDERS: Physician Assistant; Emergency Provider Emergency Medicine; PCP Family Medicine
DX: A05.9 Bacterial foodborne intoxication, unspecified (principal); Z79.891 Long term (current) use of opiate analgesic; F17.210 Nicotine dependence, cigarettes, uncomplicated
CPT/HCPCS: 71101; 73552; 80053; 83690; 85025; 96361; 96374; 99284; J2765; J7030

== ENCOUNTER 2021-07-03 04:22 | Emergency (ER) | payer MEDICAID, SELFPAY ==
[2021-07-03 04:23] VITALS: BMI 30.4
[2021-07-03] MEDS: LORazepam 2 mg/mL INJ 1 mL IM (04:25)
[2021-07-03] MEDS: haloperidol inj 5 mg/mL INJ 1 mL IM (04:30)
--- NOTE | 2021-07-03 04:31 | ECG_ITS ---
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 Measurements Intervals [place] Rate: 135 P: 73 VA: 100 QRS: 69 QRSD: 130 T: -89 QT: 303 QTc: 455 Interpretive Statements Possible SINUS TACHYCARDIA WITH SHORT VA INTERVAL WITH OCCASIONAL VENTRICULAR PREMATURE COMPLEXES LEFT BUNDLE BRANCH BLOCK [120+ ms QRS DURATION, 80+ ms Q/S IN V1/V2, 85+ ms R IN I/aVL/V5/V6] Compared to ECG 07/27/2020 15:11:17 Ventricular premature complex(es) now present Short VA interval now present Sinus rhythm no longer present Electronically Signed On 07-04-2021 23:53:05 CDT by Vivian Pop M.D. [id number]
--- NOTE | 2021-07-03 04:33 | ED_ITS ---
HPI - General Adult General: Chief complaint: Altered Mental Status Stated complaint: Anxiety\Shaking Time Seen by Provider: 07/03/21 04:23 Source: patient Mode of arrival: ambulatory Limitations: altered mental status History of Present Illness: 51-year-old male who was just seen here and discharged patient went out into the waiting room and went out to the parking lot and shot up with methamphetamine he is a known meth user he had a used needle with him patient is quite agitated and under the influence currently he is diaphoretic and shaking hard to get any history from him at this time due to his status Review of Systems General: Reports: ROS unobtainable due to mental status PFSH ED PFSH: Medical History No pertinent past medical history Surgical History History of ankle surgery Family History Other No pertinent family history Social History Smoking and tobacco status: current every day smoker cigarettes Alcohol intake: never Physical Exam Const: GENERAL APPEARANCE: in distress and ill appearing HENMT: COMMON NORMALS: normocephalic and atraumatic HEAD & SCALP: normocephalic and atraumatic Eye: COMMON NORMALS: Equal, round and reactive pupils present and EOMs intact bilaterally PUPIL: Yes Equal, round and reactive pupils present Neck/C-Spine: COMMON NORMALS: full ROM and supple Chest: COMMONS NORMALS: normal inspection of the chest and normal palpation of entire chest wall Resp: COMMON NORMALS: normal respiratory effort, No retractions, No use of accessory muscles and clear to auscultation bilaterally AUSCULTATION: clear to auscultation bilaterally Cardio: COMMON NORMALS: regular rhythm and No murmurs present (Cardio) RATE: tachycardic RHYTHM: regular rhythm GI: COMMON NORMALS: Normal to inspection, nondistended, normoactive bowel sounds present, Soft to palpation, non-tender and no masses PALPATION: Yes Soft to palpation Extremity: COMMON NORMALS: normal to inspection and full ROM Neuro: COMMON NORMALS: moves all extremities and no focal motor deficits Psych: OTHER: Diaphoretic agitated clearly under the influence of methamphetamine will follow some commands Skin: COMMON NORMALS: no rashes or lesions noted and no wounds GENERAL SKIN EXAM: no rashes or lesions noted Procedures Intubation Time out performed: No sedative: none ET Tube Size: 8 ET Tube Uncuffed: No Tube Secured Depth (cm): 26 Tube Secured Location: lips Tube Placement Confirmation: visualized tube passing through cords, equal breath sounds bilaterally, no breath sounds over epigastrium and confirmation by capnometry Patient Tolerated Procedure: well Intubation Complications: none Course Reevaluation(s): Reevaluation #1: Patient is quite agitated very very diaphoretic will treat with Ativan possibly have to intubate if he does not improve Time: 05:00 Vital Signs: Vital signs: Vital Signs Pulse Rate 139 H 07/03/21 04:49 Respiratory Rate 30 H 07/03/21 04:49 Blood Pressure 108/62 07/03/21 04:49 Pulse Oximetry 96 07/03/21 04:49 MDM - General Adult Medical Decision Making Patient presents here with methamphetamine overdose when patient first arrived quite agitated with obvious alpha overload tachycardia and diaphoresis giving la rge doses of Ativan try to helped calm him. Patient suddenly went into cardiac arrest nurses at bedside right when he arrested. Patient needed CPR started I intubated patient gave multiple rounds of epinephrine. Did multiple ultrasounds of his heart and never had any cardiac activity. Patient likely cardiac arrested from a large methamphetamine overdose. EKG Data EKG 1: I personally reviewed and interpreted this EKG as follows: EKG interpretation date: 07/03/21 EKG interpretation time: 04:46 Interpretation: sinus tach hr [address] or t wave abnormalities qrs 130 qtc 382 Critical Care Time Critical Care Time: Critical Care Time: Yes Total Critical Care Time: 40 Attestation: The high probability of a clinically significant, sudden or life threatening deterioration of the patient's cv system(s) required my full and direct attention, intervention and personal management. The critical care time is as shown. This time is in addition to time spent performing any reported procedures but includes the following: [x] Data and vital sign review and interpretation [x] Patient assessment, examination and intervention [x] Documentation [x] Medication orders and management Discharge Plan Discharge Patient Disposition: Clinical Impression: Methamphetamine intoxication, Cardiac arrest Coding Level of Care Code ED Intern Retail for [employer] Fwd Exam Comprehensive
[2021-07-03] MEDS: LORazepam 2 mg/mL INJ 1 mL IVP (04:44)
[2021-07-03 04:49] VITALS: BP 108/62; PULSE 139; RESP 30; O2SAT 96
[2021-07-03] MEDS: sodium chloride 0.9% 1,000 ML 999 ML IV (05:03)
[2021-07-03] MEDS: LORazepam 2 mg/mL INJ 1 mL 4 MG IM (05:03)
[2021-07-03 05:30] LABS: Glucose Point of Care 118 mg/dL (70-110)
--- NOTE | 2021-07-03 05:30 | PC.NURSE ---
patient brought to room 12 in w/c. sweating profusely, thrashing around, no cooperative. He would respond verbally but wasn't able to control movements. he was placed on the stretcher, seizure pads put in place. Given IM Ativan 2 mg initially. continued to thrash around, grabbing at nurses. Was given 5 mg Haldol IM, continued in behavior, Ativan 2 mg IM. Agitation continued, EKG obtained, vitals obtained. 4 mg Ativan IM given. IV established and 1 liter bolus given. Noticed a decrease in agitation, heart rate dropping gradually, patient not responding to verbal stimuli and breathing became more shallow and decreased. Dr Rogel notified, patient became pulseless and code called.
--- NOTE | 2021-07-03 05:30 | PC.NURSE ---
0510-pulseless, apneic, PEA, chest compressions began. BMV. 0514 IO right leg, Intubation 8.0 0514 EPI 0516 pulse check, no pulse, compressions resumed 0517 EPI 0517 Bicarb 0518 pulse check, no pulse, compressions resumed 0519 Blood Glucose check, 118 0520 Pulse check, no pulse, compressions resumed 05 pulse check PEA, no pulse, compressions resumed 05 No EPI given 0524 Pulse check, no pulse 05 time called, TOD [address] Rogel
--- NOTE | 2021-07-03 05:43 | PC.NURSE ---
Andres Cano contacted for ER . NARENDRA to hold body until seam rubbing machine operator picks up. Andres Cano to notify police department.
--- NOTE | 2021-07-03 05:44 | PC.NURSE ---
This nurse was rounding near ER entrance when approached by registration. [employer] bobtail driver was sitting in ER corridor [facility] stating the pt she just picked up had shot up in the back of her vehicle and would not exit when she arrived at his motel. [employer] bobtail driver brought pt to ER where this nurse and Security escorted pt from vehicle to ER 12. Pt rapidly deteriorated in ER. Security found used syringe in floor board of [employer] vehicle. Pt was alert at time of arrival to ER but too altered answer questions. Pt was not able to follow commands, and jerking the ER gurney unsafely. Seizure pads applied to bed rails. EKG completed with help of 5 staff members, IV established, IVF running, multiple meds administered. Vitals unstable through out ER visit.
--- NOTE | 2021-07-03 06:02 | PC.NURSE ---
MTS declined donation due to hst IV drug use
--- NOTE | 2021-07-03 06:13 | PC.NURSE ---
Kelsie houser first name Stephanie
--- NOTE | 2021-07-03 06:15 | PC.NURSE ---
This RN called the numbers listed for family multiple times. The phone number for Breanna Debbie is out of service and I was unable to leave a message for Ras Barbour as there was no answer after multiple attempts and the recording states this person is not accepting messages.
--- NOTE | 2021-07-03 06:52 | PC.NURSE ---
Saving site declined, pi in [place] at [phone]
== END 2021-07-03 06:45 | disposition expired ==
PROVIDERS: Emergency Provider Emergency Medicine; PCP Family Medicine
DX: F15.229 Other stimulant dependence with intoxication, unspecified (principal); I46.9 Cardiac arrest, cause unspecified; R00.0 Tachycardia, unspecified; R61 Generalized hyperhidrosis; F17.210 Nicotine dependence, cigarettes, uncomplicated
CPT/HCPCS: 31500; 36416; 82962; 85025; 93005; 96361; 96372; 96374; 99285; J1630; J2060; J7030